=== PATIENT | male | born 1950 | race Caucasian/White ===

== ENCOUNTER 2019-02-05 11:48 | Inpatient (IN) | payer MEDICARE, MEDICAID, SELFPAY ==
[2019-02-05] VITALS (18 sets, daily range): BP systolic 130–161; BP diastolic 49–72; PULSE 76–97; RESP 12–31; TEMP 36.3–37.4; O2SAT 87–100; BMI 26.8; BMI 24.5
--- NOTE | 2019-02-05 13:17 | CT_ITS ---
STUDY: CT BRAIN WITHOUT CONTRAST REASON FOR EXAM: Male, 69 years old. The patient was found unresponsive. Hyperglycemia. Stage III chronic renal disease. RADIATION DOSAGE (If Supplied By Facility): CTDIvol = ( 44.99 ) mGy, DLP = ( 762.36 ) mGycm TECHNIQUE: Transaxial CT imaging of the brain was performed without administration of intravenous contrast material. Individualized dose optimization techniques were used for this CT. COMPARISON: Comparison is made with prior study dated January 12, 2017. FINDINGS: Normal soft tissue structures. Normal calvarium. There is mild cerebral atrophy with widening of the extra-axial spaces and ventricular dilatation. Normal white matter tracts of the cerebral hemispheres. Normal basal ganglia and thalami. Normal brainstem. There is mild cerebellar atrophy. There is no intracranial hemorrhage. There are no findings of an acute ischemic infarction. Normal visualized paranasal sinuses. CT/Brain/Head without Contrast IMPRESSION: Chronic involutional changes of the brain. Electronically Signed: Maikel Cevallos, at 14:56 EDT , Service support ,
--- NOTE | 2019-02-05 13:17 | RAD_ITS ---
STUDY: X-RAY CHEST REASON FOR EXAM: Male, 69 years old. Decreased mental status. TECHNIQUE: Single AP portable view of the chest. COMPARISON: Comparison is made with prior study dated January 12, 2017. FINDINGS: EKG electrodes are seen. Findings suggestive of vascular congestion with a small bilateral effusions and bibasilar atelectasis. There is moderate cardiac enlargement. Normal mediastinum and fco. Normal visualized pulmonary arteries. Normal visualized aortic arch and descending thoracic aorta. There are diffuse degenerative changes of the visualized thoracic spine. Normal visualized ribs, clavicles, and shoulders. There is no demonstrated abnormality of the visualized soft tissue structures of the upper abdomen. RAD/Chest 1 View (Portable) IMPRESSION: Findings suggestive of a mild degree of CHF with blunting of both costophrenic angles and bibasilar atelectasis. Electronically Signed: Maikel Cevallos, at 14:51 EDT , Service support ,
--- NOTE | 2019-02-05 13:18 | EKG12_ITS ---
Test Reason : UNRESPONSIVE Blood Pressure : / mmHG Vent. Rate : 089 BPM Atrial Rate : 089 BPM P-R Int : 232 ms QRS Dur : 084 ms QT Int : 394 ms P-R-T Axes : 055 -12 079 degrees QTc Int : 479 ms Sinus rhythm with 1st degree A-V block with Premature supraventricular complexes Minimal voltage criteria for LVH, may be normal variant Septal infarct (cited on or before 27-JAN-2016) Abnormal ECG Confirmed by JAY LO ([id number]), primer expeditor and drier TERRY TAVAREZ ([id number]) on 02/09/2019 12:27:31 PM Referred By: ALONDRA Confirmed By:JAY LO
--- NOTE | 2019-02-05 13:21 | ED.DCSUM_ITS ---
- ER Visit Summary Date of Service: 02/05/19 Chief Complaint: Decreased mental status History of Present Illness: The patient is a 69 M informant. Reportedly history of diabetes. Brought in by squad by decreased mental status. Patient will not answer my SUV has any headache, chest pain or abdominal pain. States he has been nausea and vomiting. Denies any falls or trauma. Denies any fever. Currently there is no one with the patient. Some the history is been obtained by the squad. Physical Examination: Older male. Vital signs are stable. Currently is afebrile. Initial blood pressure is 139/69. Pulse ox 93% on room air no signs of hypoxia. HEENT exam atraumatic. His membranes are very dry. C-spine is nontender. No lymphadenopathy. Lungs are clear. Heart regular rhythm. Chest were nontender. Abdomen soft and nontender. Normal bowel sounds no peritoneal signs. Nondistended. Soft. Extremities moves all 4. No deformities. No signs of trauma. Back nontender. Neurologically his eyes are open he follows limited commands. He answers very few questions. He is able to talk he is speaking in a low whisper but he refuses to speak much. He does seem to have a decreased mental status. Test Results: Chest x-ray one view portable read by myself shows no acute abnormality. EKG sinus rhythm rate of 89 no acute signs of UT or ischemia. CBC White count elevated 13 no bands. Electrolytes sodium 129. CO2 19. Anion gap is 17. Glucose 1566. BUN and creatinine is 62 and 3.1 consistent with acute kidney injury and acute dehydration. INR 1. UA is pending he has been straight cath. Troponin normal. Lactic acid 2.0 and ketones small. Emergency Department Course and Treatment: Older diabetic male reportedly nausea vomiting appears dehydrated and may or may not be in DKA. Again extensive work- up. Also IV fluids and IV Zofran. Most likely will need to be admitted. Patient treated with 3 L normal saline. Which are going in at this time. Will be started on insulin drip which is already been ordered. I have the hospitalist on page for an ICU admission. Treatment Plan: Treating the patient for hyperosmotic nonketotic coma and dehydration Disposition: Admission Impression: Acute decreased level of consciousness Acute hyperosmotic nonketotic coma Dehydration with acute kidney injury Nausea and vomiting History of diabetes This note was generated with Dragon dictation software. It may contain incorrect words, spelling, and punctuation that were not noted in review of the chart prior to signing ED Disposition - Plan for ED Patient: Referrals: Anthony Petersen MD [Primary Care Provider] -
[2019-02-05] MEDS: 0.9% Normal Saline 1,000 ML 1000 ML IV ×2 (13:45→14:47)
[2019-02-05 13:48] LABS: Absolute Lymphocyte Count 0.19 X10^3/uL (0.83-4.51); Absolute Neutrophil Count 12.3 X10^3/uL (2.0-7.7); Basophil# 0.03 X10^3/uL; Basophil% 0.2 % (0-1); Hematocrit 44.3 % (40-54); Hemoglobin 12.2 g/dL (13.0-16.5); Lymphocyte # 0.19 X10^3/ul (4.0); Lymphocyte % 1.4 % (19-41); Mean Corp Hgb Conc 27.5 g/dL (32-36); Mean Corpuscular Hgb 28.9 pg (27.0-32.0); Mean Platelet Vol. 11.7 fl (6.2-12.0); NRBC Flagged by Analyzer 0 % (0-5); Neutrophil # 12.34 X10^3/uL (2.7-7.7); Neutrophil % 89.4 % (47-70); POSITIVE DIFFERENTIAL YES; Platelet Count 205 K/mm3 (150-450); RBC Distribution Width CV 14.9 % (11.6-14.6); RBC Distribution Width SD 57.7 fl (35.1-43.9); Red Blood Count 4.22 M/mm3 (4.6-6.2); White Blood Count 13.8 K/mm3 (4.4-11.0)
--- NOTE | 2019-02-05 13:52 | ED.RN ---
CRITICAL RECEIVED FROM LAB. GLUCOSE 1,566. DR. CANTU NOTIFIED.
[2019-02-05 13:53] LABS: Anion Gap 17 (5-15); BUN 62 mg/dL (7-18); BUN/Creat Ratio 19.6 RATIO (10-20); Calcium,Total 9.3 mg/dL (8.5-10.1); Chloride 93 mmol/L (98-107); Creatinine, Serum 3.17 mg/dL (0.70-1.30); EST Glomerular Filtration Rate 21 mL/min (>60); Est Glom Filt Rate - Afr Amer 25 mL/min (>60); Estimated Creatinine Clearance 22.07 ml/min; Glucose 1566 mg/dL (74-106); Potassium 4.9 mmol/L (3.5-5.1); Sodium Level 129 mmol/L (136-145)
[2019-02-05 14:03] LABS: International Normalized Ratio 1.9; Prothrombin Time (Protime)PT. 21.6 SECONDS (11.7-14.9)
[2019-02-05 14:07] LABS: Differential Indicated SCAN CRITERIA MET
[2019-02-05 14:21] LABS: Mucous, Urine 0 SEEN /hpf (<or=2+); Red Blood Cells-Urine 0 SEEN /hpf (0-5); Squamous Epithelial Cells - UA 0 SEEN /hpf (0-5); White Blood Cells 0 SEEN /hpf (0-5)
[2019-02-05 14:27] LABS: Color, Urine Yellow (Yellow); Glucose, Dipstick 1000 mg/dl (Normal); Ketone-Dipstick 15 mg/dl (Negative); Leukocyte Esterase-Dipstick Negative /ul (Negative); Nitrite-Dipstick Negative (Negative); Occult Blood-Urine 10 /ul (Negative); Protein-Dipstick Negative (Negative); Urine Bilirubin Dipstick Negative (Negative); Urine Clarity Clear (Clear); Urine Urobilinogen Normal (Normal)
[2019-02-05] MEDS: 0.9% Normal Saline 1,000 ML 999 ML IV ×2 (14:42→16:16)
[2019-02-05 14:50] LABS: Amorphous Sediment 1+; Bacteria RARE /hpf (None Seen)
[2019-02-05 14:56] LABS: Base Excess -12 mmol/L (-2 to +2); Bicarbonate 15.2 mmol/L (22-26); Blood Gas Specimen Type ART; O2 Delivery Device Nasal Can; PO2 82 mmHG (75-100); SITE R Radial; SO2 94 % (95-99); Time Given 1450; Total Carbon Dioxide 16 mmol/L; pCO2 35.4 mmHg (35-45); pH 7.24 (7.35-7.45)
[2019-02-05] MEDS: Ondansetron 4 MG/2 ML Vial IV (14:57)
[2019-02-05 16:50] LABS: Glucose 1176 mg/dL (74-106)
[2019-02-05] MEDS: 0.9% Normal Saline 1,000 ML 500 ML IV (17:17)
[2019-02-05 17:43] LABS: Glucose 1037 mg/dL (74-106)
[2019-02-05 17:49] LABS: Reflex Lactate? Y
--- NOTE | 2019-02-05 18:27 | HP.PCM_ITS ---
Problem List (1) Altered mental state Status: Acute Qualifiers: Altered mental status type: delirium Qualified Code(s): R41.0 - Disorientation, unspecified History of Present Illness Date of Admission: 02/05/19 Chief Complaint: Decreased mental status with delirium The patient is a 69 year old M was brought in by squad for evaluation in the emergency room [facility] due to a decreased level of consciousness and delirium. Patient was confused and unable to answer any questions to this examiner, review of systems was not able be obtained by this examiner. Work-up in the emergency room included a CBC which revealed an elevated white blood cell count 13.8, hemoglobin was 12.2, INR was 1.9, chemistry panel was remarkable for a sodium of 129, BUN of 62, creatinine 3.17, glucose was 1566, troponin was unremarkable. Urinalysis was unremarkable, there was a small amount of acetone present on the blood work, arterial blood gas showed a pH of 7.24, PCO2 of 35, PO2 of 82 on 2 L nasal cannula. Head CT was remarkable for chronic involutional changes of the brain only, chest x-ray suggested a mild degree of CHF-on examination however, patient did not have evidence of CHF. Patient was admitted for acute nonketotic hyperosmolar hyperglycemia, he was placed on insulin drip, given IV fluids, and critical care was consulted for management. Further note, patient's warfarin bottle indicated that the patient was taking 12-1/2 mg several times a week and then 5 mg the other days of the week, I clarify this with his PCP who states the patient alternates between 2-1/2 mg wa rfarin on Saturday and and 5 mg warfarin on Saturday and Saturday. For now, I will place the patient on warfarin 2-1/2 mg daily. Past Medical History Past Medical History (Chronic Problems): Chronic Problems HTN (hypertension) (Chronic) Obesity (BMI 30-39.9) (Chronic) Hyperlipidemia (Chronic) Chronic back pain (Chronic) Chronic 2nd toe ulcer (Chronic) Chronic renal disease, stage III (Chronic) Coronary artery disease (Chronic) Status post stents Diabetic peripheral neuropathy (Chronic) Type II diabetes mellitus (Chronic) not adequately controlled, HGBA1C is 8 Paroxysmal atrial fibrillation (Chronic) Allergies mushroom Allergy (Verified 01/12/17 23:26) Unknown Home Medications: Ambulatory Orders Medication Instructions Recorded Atorvastatin Calcium [Lipitor] 40 mg PO QHS 03/25/14 Clopidogrel Bisulfate [Plavix] 75 mg PO DAILY 03/25/14 Isosorbide Mononitrate [Isosorbide 30 mg PO DAILY 07/08/14 Mononitrate ER] Linagliptin [Tradjenta] 5 mg PO DAILY 12/06/15 Acetaminophen [Tylenol Tablet] 650 mg PO Q6H PRN PRN #0 tablet 12/14/15 Albuterol Inhaler [Ventolin Hfa] 2 puff INHALATION Q4H PRN PRN #1 12/14/15 Gabapentin [Neurontin] 300 mg PO BIDCM capsule 12/14/15 Nitroglycerin (INPATIENT USE) 0.4 mg SUBLINGUAL Q5M PRN #0 tablet 12/14/15 [Nitrostat] Furosemide [Lasix] 20 mg PO BIDLX 01/13/17 Metoprolol Tartrate [Lopressor 12.5 mg PO BID 01/13/17 (beta cordelia)] Warfarin [Coumadin] 5 mg PO MOWEFRSA 01/13/17 Warfarin [Coumadin] 12.5 mg PO SUTUTH 01/13/17 Budesonide/Formoterol Fumarate 2 puff INHALATION BID 02/05/19 [Symbicort 80-4.5 Mcg Inhaler] Dronedarone Hydrochloride [Multaq] 400 mg PO BID 02/05/19 Famotidine 40 mg PO DAILY 02/05/19 Fluticasone 0.05% [Flonase Nasal 1 spray NARES BID 02/05/19 [place]] Insulin Aspart [Novolog Flexpen] 30 units SUBCUT TIDCM 02/05/19 Insulin Detemir [Levemir FlexPen] 30 units SUBCUT BID 02/05/19 Surgical History: noncontributory Psychiatric History: No pertinent psych hx Lives: Alone Smoking Status: Unknown if ever smoked Tobacco Use: - - Unknown tobacco history-patient not able to provide - *Family History Maternal History Items: Heart Disease Paternal History Items: Diabetes, Heart Disease Review of Systems Comment: Review of systems was unobtainable from the patient due to confusion and metabolic encephalopathy, family members were not present for this examiner to obtain information VTE Information - Inpt Only VTE Present on Admission: No VTE Mechan Device Prophylaxis: SCD's VTE Pharm Prophylaxis ordered?: No Reason prophylaxis not ordered:: Treatment Not Indicated - Physical Exam General: Cooperative, No apparent distress, Well developed, Confused, Lethargic HEENT: Atraumatic, PERRLA, EOMI, Normocephalic Oral: Dry Mucosa Neck: Supple, No JVD, Negative Carotid Bruits, Trachea Midline, Thyroid Normal Size and Texture Lungs: Clear to auscultation, Normal air movement, No rhonchi, No wheeze, No rales Cardiovascular: Regular rate, Regular Rhythm, Normal S1, Normal S2, No murmurs, PMI Normal, No rub noted, No Gallop Abdomen: Bowel Sounds Present, Soft, Non Tender, Non-Distended, No hernias noted Extremities: No edema, Capillary Refill Less than 3 Seconds Skin: No rashes, No breakdown Neurological: Cranial nerves II-XII grossly intact, Neuro grossly intact, Sensory exam intact to light touch and pain Psych/Mental Status: - - Patient was lethargic and confused Vital Signs Temp Pulse Resp BP Pulse Ox 97.6 F L 88 25 H 149/62 H 98 02/05/19 18:00 02/05/19 18:00 02/05/19 18:00 02/05/19 18:00 02/05/19 18:00 Oxygen Flow Rate (L/min) 2 Oxygen Delivery Method Nasal Cannula Weight: 81.9 kg Body Mass Index (BMI) 24.5 Finger Stick Blood Glucose 1,566 Intake and Output for Last 24 Hours 02/03/19 02/04/19 02/05/19 23:59 23:59 23:59 Intake Total 3537.24 / 3537.24 Output Total 1400 / 1400 Balance 2137.24 / 2137.24 Laboratory Tests Past 24 Hrs 02/05/19 02/05/19 02/05/19 11:54 11:54 11:54 WBC 13.8 H RBC 4.22 L Hgb 12.2 L Hct 44.3 MCV 105.0 H MCH 28.9 MCHC 27.5 L RDW Std Deviation 57.7 H RDW Coeff of [place] 14.9 H Plt Count 205 MPV 11.7 Immature Gran % (Auto) 1.000 H Neut % (Auto) 89.4 H Lymph % (Auto) 1.4 L Edwards % (Auto) 8.0 Eos % (Auto) 0.0 Baso % (Auto) 0.2 Absolute Neuts (auto) 12.3 H Absolute Lymphs (auto) 0.19 L Nucleated RBC % 0 Differential Comment COMMENT PT 21.6 H INR 1.9 Specimen Type Sample Site pH Bicarbonate Actual POC Total CO2 Base Excess O2 Saturation ABG pCO2 ABG pO2 Ken Test O2 Delivery Device Liter Flow Blood Gas Notified Whom Blood Gas Notified Time Sodium 129 L Potassium 4.9 Chloride 93 L Carbon Dioxide 19.0 L Anion Gap 17 H BUN 62 H Creatinine 3.17 H Estim Creat Clear Calc 22.07 Est GFR (MDRD) Af Amer 25 L Est GFR (MDRD) Non-Af 21 L BUN/Creatinine Ratio 19.6 Glucose 1566 H* Lactic Acid Calcium 9.3 Troponin I 0.017 Urine Color Urine Clarity Urine pH Ur Specific Mcdonough Urine Protein Urine Glucose (UA) Urine Ketones Urine Occult Blood Urine Nitrite Urine Bilirubin Urine Urobilinogen Ur Leukocyte Esterase Urine RBC Urine WBC Ur Squamous Epith Cells Amorphous Sediment Urine Bacteria Urine Mucus Acetone Level 02/05/19 02/05/19 02/05/19 11:54 13:35 14:16 WBC RBC Hgb Hct MCV MCH MCHC RDW Std Deviation RDW Coeff of [place] Plt Count MPV Immature Gran % (Auto) Neut % (Auto) Lymph % (Auto) Edwards % (Auto) Eos % (Auto) Baso % (Auto) Absolute Neuts (auto) Absolute Lymphs (auto) Nucleated RBC % Differential Comment PT INR Specimen Type Sample Site pH Bicarbonate Actual POC Total CO2 Base Excess O2 Saturation ABG pCO2 ABG pO2 Ken Test O2 Delivery Device Liter Flow Blood Gas Notified Whom Blood Gas Notified Time Sodium Potassium Chloride Carbon Dioxide Anion Gap BUN Creatinine Estim Creat Clear Calc Est GFR (MDRD) Af Amer Est GFR (MDRD) Non-Af BUN/Creatinine Ratio Glucose Lactic Acid 2.0 Calcium Troponin I Urine Color Yellow Urine Clarity Clear Urine pH 5.0 Ur Specific Mcdonough 1.010 Urine Protein Negative Urine Glucose (UA) 1000 H Urine Ketones 15 H Urine Occult Blood 10 H Urine Nitrite Negative Urine Bilirubin Negative Urine Urobilinogen Normal Ur Leukocyte Esterase Negative Urine RBC 0 SEEN Urine WBC 0 SEEN Ur Squamous Epith Cells 0 SEEN Amorphous Sediment 1+ Urine Bacteria RARE Urine Mucus 0 SEEN Acetone Level SMALL H 02/05/19 02/05/19 02/05/19 14:51 16:05 17:08 WBC RBC Hgb Hct MCV MCH MCHC RDW Std Deviation RDW Coeff of [place] Plt Count MPV Immature Gran % (Auto) Neut % (Auto) Lymph % (Auto) Edwards % (Auto) Eos % (Auto) Baso % (Auto) Absolute Neuts (auto) Absolute Lymphs (auto) Nucleated RBC % Differential Comment PT INR Specimen Type ART Sample Site R Radial pH 7.24 L Bicarbonate Actual 15.2 L POC Total CO2 16 Base Excess -12 L O2 Saturation 94 L ABG pCO2 35.4 ABG pO2 82 Ken Test NA O2 Delivery Device Nasal Can Liter Flow 2.0 Blood Gas Notified Whom ED Blood Gas Notified Time 1450 Sodium Potassium Chloride Carbon Dioxide Anion Gap BUN Creatinine Estim Creat Clear Calc Est GFR (MDRD) Af Amer Est GFR (MDRD) Non-Af BUN/Creatinine Ratio Glucose 1176 H* 1037 H* Lactic Acid Calcium Troponin I Urine Color Urine Clarity Urine pH Ur Specific Mcdonough Urine Protein Urine Glucose (UA) Urine Ketones Urine Occult Blood Urine Nitrite Urine Bilirubin Urine Urobilinogen Ur Leukocyte Esterase Urine RBC Urine WBC Ur Squamous Epith Cells Amorphous Sediment Urine Bacteria Urine Mucus Acetone Level 02/05/19 18:05 WBC RBC Hgb Hct MCV MCH MCHC RDW Std Deviation RDW Coeff of [place] Plt Count MPV Immature Gran % (Auto) Neut % (Auto) Lymph % (Auto) Edwards % (Auto) Eos % (Auto) Baso % (Auto) Absolute Neuts (auto) Absolute Lymphs (auto) Nucleated RBC % Differential Comment PT INR Specimen Type Sample Site pH Bicarbonate Actual POC Total CO2 Base Excess O2 Saturation ABG pCO2 ABG pO2 Ken Test O2 Delivery Device Liter Flow Blood Gas Notified Whom Blood Gas Notified Time Sodium Pending Potassium Pending Chloride Pending Carbon Dioxide Pending Anion Gap Pending BUN Pending Creatinine Pending Estim Creat Clear Calc Est GFR (MDRD) Af Amer Pending Est GFR (MDRD) Non-Af Pending BUN/Creatinine Ratio Pending Glucose Pending Lactic Acid Calcium Pending Troponin I Urine Color Urine Clarity Urine pH Ur Specific Mcdonough Urine Protein Urine Glucose (UA) Urine Ketones Urine Occult Blood Urine Nitrite Urine Bilirubin Urine Urobilinogen Ur Leukocyte Esterase Urine RBC Urine WBC Ur Squamous Epith Cells Amorphous Sediment Urine Bacteria Urine Mucus Acetone Level Assessment/Plan All Active Problems Hypoglycemia (Resolved) Hypothermia (Resolved) Altered mental state (Acute) Acute osteomyelitis of metacarpal bone (Resolved) Osteomyelitis of toe of right foot (Resolved) Right 2nd toe suspected osteomyelitis (Resolved) Right 2nd toe gangrene (Resolved) #1 hyperosmolar nonketotic hyperglycemia, uncontrolled type 2 diabetes-patient will be admitted to ICU, he will be seen in consultation by critical care, patient will continue on his insulin drip, vigorous fluid administration will be given, labs will be monitored #2 acute renal failure-fluids will be administered, labs will be monitored #3 metabolic encephalopathy-secondary to #1 #4 coronary artery disease #5 diabetic peripheral neuropathy by history #6 paroxysmal atrial fibrillation-currently in sinus rhythm #7 coagulopathy secondary to chronic Coumadin usage #8 hyperlipidemia #9 leukocytosis-probably secondary to severe hydration-patient does not have any evidence of active infection at this time, labs will be rechecked #10 chronic obstructive pulmonary disease-patient will be placed on DuoNeb aerosols as needed Code Visit Inpatient E&M: 27521 Init Hosp L3
[2019-02-05 18:52] LABS: Anion Gap 9 (5-15); BUN 53 mg/dL (7-18); BUN/Creat Ratio 21.5 RATIO (10-20); Calcium,Total 8.3 mg/dL (8.5-10.1); Chloride 115 mmol/L (98-107); Creatinine, Serum 2.46 mg/dL (0.70-1.30); EST Glomerular Filtration Rate 28 mL/min (>60); Est Glom Filt Rate - Afr Amer 34 mL/min (>60); Estimated Creatinine Clearance 30.23 ml/min; Glucose 968 mg/dL (74-106); Potassium 3.5 mmol/L (3.5-5.1); Sodium Level 146 mmol/L (136-145)
[2019-02-05 19:23] LABS: Glucose 929 mg/dL (74-106)
--- NOTE | 2019-02-05 19:30 | NURSING ---
Insulin gtt running at 1unit/hr or 1ml/hr on at shift change.
[2019-02-05] MEDS: 0.9% NaCl Peripheral Flush Adult/Peds IV ×3 (19:56→22:00)
--- NOTE | 2019-02-05 20:19 | NURSING ---
Pt having numerous low pulse ox readings while resting with eyes closed. Very somnolent, responds to verbal but readily falls back to sleep. Garbled, difficult to understand, verbal responses, but with persistence in questioning, will respond appropriately.
[2019-02-05 20:31] LABS: Glucose 881 mg/dL (74-106)
[2019-02-05] MEDS: Potassium Chloride 40 MEQ in 0.45% Normal Saline 1,000 ML 150 MEQ IV (20:37)
[2019-02-05 21:51] LABS: Glucose 805 mg/dL (74-106)
[2019-02-05 22:36] LABS: Anion Gap 6 (5-15); BUN 48 mg/dL (7-18); Calcium,Total 8.4 mg/dL (8.5-10.1); Chloride 120 mmol/L (98-107); Creatinine, Serum 2.18 mg/dL (0.70-1.30); EST Glomerular Filtration Rate 32 mL/min (>60); Est Glom Filt Rate - Afr Amer 39 mL/min (>60); Estimated Creatinine Clearance 34.11 ml/min; Glucose 730 mg/dL (74-106); Potassium 3.9 mmol/L (3.5-5.1); Sodium Level 149 mmol/L (136-145)
[2019-02-05 23:11] LABS: Bedside Glucose > 500 mg/dL (70-110)
[2019-02-05 23:56] LABS: Glucose 754 mg/dL (74-106)
[2019-02-06] VITALS (40 sets, daily range): BP systolic 123–178; BP diastolic 41–91; PULSE 60–104; RESP 14–25; TEMP 35.9–36.8; O2SAT 93–100
--- NOTE | 2019-02-06 00:19 | PCM.PN.BLA ---
Progress Note Blood cultures returned gram-positive cocci in clusters. This could be a contaminant. However patient has leukocytosis which could also be because of his HHS. In any case will go ahead and start patient on vancomycin while we wait for final culture and for return of other bottle of blood culture.
[2019-02-06] MEDS: 0.9% NaCl Peripheral Flush Adult/Peds IV ×3 (01:15→06:51)
[2019-02-06 01:43] LABS: Glucose 702 mg/dL (74-106)
--- NOTE | 2019-02-06 01:43 | PCM.RX.CS ---
Consult Pharmacy has been consulted to manage selected antiobiotic: Vancomycin Type of Consult: New start Suspected Infection: Other Prior Doses of Antibiotics Received/Current Regimen: Medications Vancomycin HCl 1,250 mg/ (Sodium Chloride) 275 mls @ 167 mls/hr IV Q24H HARESH Vancomycin HCl 1,250 mg/ (Sodium Chloride) 275 mls @ 167 mls/hr IV X1 ONE Stop: 02/06/19 02:38 Last Admin: 02/06/19 01:12 Dose: 167 mls/hr Labs: Sodium 149 mmol/L (136-145) H 02/05/19 22:05 Potassium 3.9 mmol/L (3.5-5.1) 02/05/19 22:05 Chloride 120 mmol/L (98-107) H 02/05/19 22:05 Carbon Dioxide 23.0 mmol/L (21.0-32.0) 02/05/19 22:05 Anion Gap 6 (5-15) 02/05/19 22:05 BUN 48 mg/dL (7-18) H 02/05/19 22:05 Creatinine 2.18 mg/dL (0.70-1.30) H 02/05/19 22:05 Est GFR (MDRD) Af Amer 39 mL/min (>60) L 02/05/19 22:05 Est GFR (MDRD) Non-Af 32 mL/min (>60) L 02/05/19 22:05 BUN/Creatinine Ratio 22.0 RATIO (10-20) H 02/05/19 22:05 Glucose 702 mg/dL (74-106) H* 02/06/19 01:10 Microbiology: Microbiology 02/05/19 13:30 Blood Culture (Wb) - Left Forearm Blood Culture - Preliminary Weight used for dosin.9 kg Estimated Creatinine Clearance: 34.1 Goal Trough: 15-20 mcg/mL Pharmacy Plan for Drug Dosing: Pharmacy Service will continue to monitor and adjust dosing as required. Follow-Up Labs: Trough Vancomycin Labs to be done on [date and time ordered]: 02/08/19 @0030
[2019-02-06 02:44] LABS: Anion Gap 4 (5-15); BUN 46 mg/dL (7-18); BUN/Creat Ratio 22.3 RATIO (10-20); Calcium,Total 8.6 mg/dL (8.5-10.1); Chloride 123 mmol/L (98-107); Creatinine, Serum 2.06 mg/dL (0.70-1.30); EST Glomerular Filtration Rate 34 mL/min (>60); Est Glom Filt Rate - Afr Amer 41 mL/min (>60); Glucose 622 mg/dL (74-106); Potassium 4.2 mmol/L (3.5-5.1); Sodium Level 152 mmol/L (136-145)
[2019-02-06 03:10] LABS: Bedside Glucose > 500 mg/dL (70-110)
[2019-02-06 04:16] LABS: Bedside Glucose > 500 mg/dL (70-110)
[2019-02-06] MEDS: Potassium Chloride 40 MEQ in 0.45% Normal Saline 1,000 ML 150 MEQ IV ×2 (05:03→05:05)
[2019-02-06 05:11] LABS: Bedside Glucose > 500 mg/dL (70-110)
[2019-02-06 05:32] LABS: Absolute Neutrophil Count 13.3 X10^3/uL (2.0-7.7); Basophil# 0.03 X10^3/uL; Basophil% 0.2 % (0-1); Eosinophil# 0.21 X10^3/uL; Eosinophils% 1.4 % (0-5); Hematocrit 38.4 % (40-54); Hemoglobin 11.9 g/dL (13.0-16.5); Lymphocyte % 2.1 % (19-41); Mean Corpuscular Hgb 28.9 pg (27.0-32.0); Mean Corpuscular Volume 93.2 fL (80-94); Mean Platelet Vol. 10.5 fl (6.2-12.0); Monocyte# 0.76 X10^3/uL; Monocyte% 5.2 % (0-10); NRBC Flagged by Analyzer 0 % (0-5); Neutrophil # 13.25 X10^3/uL (2.7-7.7); Neutrophil % 90.6 % (47-70); POSITIVE DIFFERENTIAL YES; Platelet Count 168 K/mm3 (150-450); RBC Distribution Width CV 14.7 % (11.6-14.6); RBC Distribution Width SD 50.3 fl (35.1-43.9); Red Blood Count 4.12 M/mm3 (4.6-6.2); White Blood Count 14.6 K/mm3 (4.4-11.0)
[2019-02-06 05:34] LABS: Differential Indicated SCAN CRITERIA MET
[2019-02-06 05:55] LABS: Differential Comment SCANNED
[2019-02-06 06:00] LABS: Bedside Glucose > 500 mg/dL (70-110)
[2019-02-06 06:10] LABS: Anion Gap 9 (5-15); BUN 46 mg/dL (7-18); BUN/Creat Ratio 23.7 RATIO (10-20); Calcium,Total 8.5 mg/dL (8.5-10.1); Chloride 124 mmol/L (98-107); Creatinine, Serum 1.94 mg/dL (0.70-1.30); EST Glomerular Filtration Rate 36 mL/min (>60); Est Glom Filt Rate - Afr Amer 44 mL/min (>60); Estimated Creatinine Clearance 38.33 ml/min; Glucose 581 mg/dL (74-106); Potassium 4.6 mmol/L (3.5-5.1); Sodium Level 156 mmol/L (136-145)
[2019-02-06] MEDS: Dext 5%-0.45% NS 1,000 ML 110 ML IV (06:50)
--- NOTE | 2019-02-06 07:35 | PCM.CON.CC ---
Problem List (1) Hyperosmolar coma due to secondary diabetes Status: Acute (2) Altered mental state Status: Acute Qualifiers: Altered mental status type: delirium Qualified Code(s): R41.0 - Disorientation, unspecified (3) HTN (hypertension) Status: Chronic Qualifiers: Hypertension type: essential hypertension Qualified Code(s): I10 - Essential (primary) hypertension (4) Obesity (BMI 30-39.9) Status: Chronic (5) Hyperlipidemia Status: Chronic (6) Chronic back pain Status: Chronic (7) Chronic renal disease, stage III Status: Chronic (8) Coronary artery disease Status: Chronic Comment: Status post stents (9) Diabetic peripheral neuropathy Status: Chronic (10) Type II diabetes mellitus Status: Chronic Qualifiers: Diabetes mellitus remote computer terminal operator insulin use: with mcc use Diabetes mellitus complication status: with hyperglycemia Qualified Code(s): E11.65 - Type 2 diabetes mellitus with hyperglycemia; Z79.4 - FPC (current) use of insulin Comment: not adequately controlled, HGBA1C is 8 (11) Paroxysmal atrial fibrillation Status: Chronic Reason for Consult Date of Consultation: 02/06/19 Reason for Consultation: Hyperosmolar non-ketosis History of Present Illness: The patient is a 69 year old M, with past medical history listed below, who presented to [facility] on 02/05/2019 secondary to decreased mental status. Patient is not able to answer questions at this time other than to shake his head no for pain, so most of the history is from the electronic medical record. Patient reportedly was 93% on room air with a blood pressure of 139/69 on presentation to the ER. Patient reportedly did follow limited commands on presentation. Chest x-ray in the ER was unremarkable, but bicarbonate was 19, anion gap of 17 and glucose of 1566. Creatinine was elevated at 3.1 and lactate was within normal limits. Patient was given IV fluids, IV Zofran, 3 L normal saline and was admitted to the intensive care unit for further evaluation. Overnight in the intensive care unit, patient has come back positive for staph aureus in 2 out of 2 blood cultures. Patient is also been placed on BiPAP therapy secondary to acidosis and desaturations. Patient is not currently answering any questions. There is no family at the bedside. Patient will open his eyes to a sternal rub and shake his head yes or no. Patient states he has no chest pain, abdominal pain, nausea or diarrhea. Patient does have superficial skin wounds, but is unable to provide any history on their occurrence. Nursing did report there were feces noted on his feet. Unable to obtain review of systems secondary to mental status. Past Medical History Past Medical History (Chronic Problems): Chronic Problems HTN (hypertension) (Chronic) Obesity (BMI 30-39.9) (Chronic) Hyperlipidemia (Chronic) Chronic back pain (Chronic) Chronic 2nd toe ulcer (Chronic) Chronic renal disease, stage III (Chronic) Coronary artery disease (Chronic) Status post stents Diabetic peripheral neuropathy (Chronic) Type II diabetes mellitus (Chronic) not adequately controlled, HGBA1C is 8 Paroxysmal atrial fibrillation (Chronic) Allergies mushroom Allergy (Verified 01/12/17 23:26) Unknown Home Medications: Ambulatory Orders Medication Instructions Recorded Atorvastatin Calcium [Lipitor] 40 mg PO QHS 03/25/14 Clopidogrel Bisulfate [Plavix] 75 mg PO DAILY 03/25/14 Isosorbide Mononitrate [Isosorbide 30 mg PO DAILY 07/08/14 Mononitrate ER] Linagliptin [Tradjenta] 5 mg PO DAILY 12/06/15 Acetaminophen [Tylenol Tablet] 650 mg PO Q6H PRN PRN #0 tablet 12/14/15 Albuterol Inhaler [Ventolin Hfa] 2 puff INHALATION Q4H PRN PRN #1 12/14/15 Gabapentin [Neurontin] 300 mg PO BIDCM capsule 12/14/15 Nitroglycerin (INPATIENT USE) 0.4 mg SUBLINGUAL Q5M PRN #0 tablet 12/14/15 [Nitrostat] Furosemide [Lasix] 20 mg PO BIDLX 01/13/17 Metoprolol Tartrate [Lopressor 12.5 mg PO BID 01/13/17 (beta cordelia)] Warfarin [Coumadin] 5 mg PO MOWEFRSA 01/13/17 Warfarin [Coumadin] 12.5 mg PO SUTUTH 01/13/17 Budesonide/Formoterol Fumarate 2 puff INHALATION BID 02/05/19 [Symbicort 80-4.5 Mcg Inhaler] Dronedarone Hydrochloride [Multaq] 400 mg PO BID 02/05/19 Famotidine 40 mg PO DAILY 02/05/19 Fluticasone 0.05% [Flonase Nasal 1 spray NARES BID 02/05/19 [place]] Insulin Aspart [Novolog Flexpen] 30 units SUBCUT TIDCM 02/05/19 Insulin Detemir [Levemir FlexPen] 30 units SUBCUT BID 02/05/19 Surgical History: noncontributory Psychiatric History: No pertinent psych hx Lives: Alone Smoking Status: Unknown if ever smoked Tobacco Use: - - Unknown tobacco history-patient not able to provide - *Family History Maternal History Items: Heart Disease Paternal History Items: Diabetes, Heart Disease Review of Systems Unable to obtain accurate/complete ROS d/t: See HPI Patient Problems: Active and Suspected Problems Hyperosmolar coma due to secondary diabetes (Acute) Objective: Chest x-ray was personally reviewed and does show blunting of bilateral costophrenic angles. No obvious infiltrate is appreciated. CT scan of the head showed chronic involutional changes. Last echocardiogram 01/07/2015 showing moderate LVH with EF of 65% in stage I diastolic dysfunction. Right ventricular systolic pressure of 26 mmHg. Patient also has a pulmonary rehab documentation around this time. However. No pulmonary function tests are available for review. Patient did have a CT scan in 2014 showing fibrotic changes at the bases of his lungs - Physical Exam General: Confused, Disoriented, Lethargic, Non-Cooperative, - - Appears older than stated age. Not vocalizing. HEENT: Atraumatic, PERRLA, EOMI, Normocephalic, - - No scleral icterus or injection noted. Oral: No Gingival or Mucosal Lesions/ Ulcerations, Dry Mucosa Neck: Supple, No JVD, No Nodes, Trachea Midline Lungs: No rhonchi, No wheeze, No rales, Diminished, - - Fair effort. Slight dullness to percussion laterally at the bases. Cardiovascular: Regular rate, Regular Rhythm, Normal S1, Normal S2, No murmurs, No rub noted, No Gallop Abdomen: Soft, Non Tender, Hypoactive Bowel Sounds, Distended - Slightly Extremities: No clubbing, No cyanosis, No edema, - - Right second toe amputation Skin: - - Petechiae noted throughout lower extremities. Patient does have some superficial ulceration with granulation tissue on the shoulders and upper chest and surrounding erythema. No fluctuance is noted. Musculoskeletal: No Tenderness to Palpation of Joints or Extremities Lymphatic: No Cervical, Supraclavicular, or Inguinal Adenopathy Neurological: - - Positive gag, cough and corneal reflexes. Spontaneous respirations. Very little spontaneous movement noted. Psych/Mental Status: Flat Affect Vital Signs Temp Pulse Resp BP Pulse Ox 35.9 C L 72 22 H 135/62 H 98 02/06/19 04:00 02/06/19 07:00 02/06/19 07:00 02/06/19 07:00 02/06/19 07:00 Oxygen Flow Rate (L/min) 2 Oxygen Delivery Method Bi-pap Weight: 82.4 kg Body Mass Index (BMI) 24.5 Finger Stick Blood Glucose 512 Intake and Output for Last 24 Hours 02/04/19 02/05/19 02/06/19 23:59 23:59 23:59 Intake Total 4903.37 / 5053.37 1201.94 / 1201.94 Output Total 2700 / 2700 800 / 800 Balance 2203.37 / 2353.37 401.94 / 401.94 Microbiology Past 72 Hours 02/05/19 13:30 Blood Culture - Preliminary Blood Culture (Wb) - Left Forearm 02/05/19 13:40 Bacteria Detection (PCR) - Preliminary Blood Culture (Wb) - Right Wrist Staphylococcus aureus Blood Culture - Preliminary Laboratory Tests Past 24 Hrs 02/05/19 02/05/19 02/05/19 11:54 11:54 11:54 WBC 13.8 H RBC 4.22 L Hgb 12.2 L Hct 44.3 MCV 105.0 H MCH 28.9 MCHC 27.5 L RDW Std Deviation 57.7 H RDW Coeff of [place] 14.9 H Plt Count 205 MPV 11.7 Immature Gran % (Auto) 1.000 H Neut % (Auto) 89.4 H Lymph % (Auto) 1.[address] % (Auto) 8.0 Eos % (Auto) 0.0 Baso % (Auto) 0.2 Absolute Neuts (auto) 12.3 H Absolute Lymphs (auto) 0.19 L Nucleated RBC % 0 Differential Comment COMMENT PT 21.6 H INR 1.9 Specimen Type Sample Site pH Bicarbonate Actual POC Total CO2 Base Excess O2 Saturation ABG pCO2 ABG pO2 Ken Test O2 Delivery Device Liter Flow Blood Gas Notified Whom Blood Gas Notified Time Sodium 129 L Potassium 4.9 Chloride 93 L Carbon Dioxide 19.0 L Anion Gap 17 H BUN 62 H Creatinine 3.17 H Estim Creat Clear Calc 22.07 Est GFR (MDRD) Af Amer 25 L Est GFR (MDRD) Non-Af 21 L BUN/Creatinine Ratio 19.6 Glucose 1566 H* Lactic Acid Calcium 9.3 Troponin I 0.017 Urine Color Urine Clarity Urine pH Ur Specific [place] Urine Protein Urine Glucose (UA) Urine Ketones Urine Occult Blood Urine Nitrite Urine Bilirubin Urine Urobilinogen Ur Leukocyte Esterase Urine RBC Urine WBC Ur Squamous Epith Cells Amorphous Sediment Urine Bacteria Urine Mucus Acetone Level 02/05/19 02/05/19 02/05/19 11:54 13:35 14:16 WBC RBC Hgb Hct MCV MCH MCHC RDW Std Deviation RDW Coeff of [place] Plt Count MPV Immature Gran % (Auto) Neut % (Auto) Lymph % (Auto) [place] % (Auto) Eos % (Auto) Baso % (Auto) Absolute Neuts (auto) Absolute Lymphs (auto) Nucleated RBC % Differential Comment PT INR Specimen Type Sample Site pH Bicarbonate Actual POC Total CO2 Base Excess O2 Saturation ABG pCO2 ABG pO2 Ken Test O2 Delivery Device Liter Flow Blood Gas Notified Whom Blood Gas Notified Time Sodium Potassium Chloride Carbon Dioxide Anion Gap BUN Creatinine Estim Creat Clear Calc Est GFR (MDRD) Af Amer Est GFR (MDRD) Non-Af BUN/Creatinine Ratio Glucose Lactic Acid 2.0 Calcium Troponin I Urine Color Yellow Urine Clarity Clear Urine pH 5.0 Ur Specific [place] 1.010 Urine Protein Negative Urine Glucose (UA) 1000 H Urine Ketones 15 H Urine Occult Blood 10 H Urine Nitrite Negative Urine Bilirubin Negative Urine Urobilinogen Normal Ur Leukocyte Esterase Negative Urine RBC 0 SEEN Urine WBC 0 SEEN Ur Squamous Epith Cells 0 SEEN Amorphous Sediment 1+ Urine Bacteria RARE Urine Mucus 0 SEEN Acetone Level SMALL H 02/05/19 02/05/19 02/05/19 14:51 16:05 17:08 WBC RBC Hgb Hct MCV MCH MCHC RDW Std Deviation RDW Coeff of [place] Plt Count MPV Immature Gran % (Auto) Neut % (Auto) Lymph % (Auto) [place] % (Auto) Eos % (Auto) Baso % (Auto) Absolute Neuts (auto) Absolute Lymphs (auto) Nucleated RBC % Differential Comment PT INR Specimen Type ART Sample Site R Radial pH 7.24 L Bicarbonate Actual 15.2 L POC Total CO2 16 Base Excess -12 L O2 Saturation 94 L ABG pCO2 35.4 ABG pO2 82 Ken Test NA O2 Delivery Device Nasal Can Liter Flow 2.0 Blood Gas Notified Whom ED Blood Gas Notified Time 1450 Sodium Potassium Chloride Carbon Dioxide Anion Gap BUN Creatinine Estim Creat Clear Calc Est GFR (MDRD) Af Amer Est GFR (MDRD) Non-Af BUN/Creatinine Ratio Glucose 1176 H* 1037 H* Lactic Acid Calcium Troponin I Urine Color Urine Clarity Urine pH Ur Specific [place] Urine Protein Urine Glucose (UA) Urine Ketones Urine Occult Blood Urine Nitrite Urine Bilirubin Urine Urobilinogen Ur Leukocyte Esterase Urine RBC Urine WBC Ur Squamous Epith Cells Amorphous Sediment Urine Bacteria Urine Mucus Acetone Level 02/05/19 02/05/19 02/05/19 18:05 18:50 20:00 WBC RBC Hgb Hct MCV MCH MCHC RDW Std Deviation RDW Coeff of [place] Plt Count MPV Immature Gran % (Auto) Neut % (Auto) Lymph % (Auto) [place] % (Auto) Eos % (Auto) Baso % (Auto) Absolute Neuts (auto) Absolute Lymphs (auto) Nucleated RBC % Differential Comment PT INR Specimen Type Sample Site pH Bicarbonate Actual POC Total CO2 Base Excess O2 Saturation ABG pCO2 ABG pO2 Ken Test O2 Delivery Device Liter Flow Blood Gas Notified Whom Blood Gas Notified Time Sodium 146 H Potassium 3.5 Chloride 115 H Carbon Dioxide 22.0 Anion Gap 9 BUN 53 H Creatinine 2.46 H Estim Creat Clear Calc 30.23 Est GFR (MDRD) Af Amer 34 L Est GFR (MDRD) Non-Af 28 L BUN/Creatinine Ratio 21.5 H Glucose 968 H* 929 H* 881 H* Lactic Acid Calcium 8.3 L Troponin I Urine Color Urine Clarity Urine pH Ur Specific [place] Urine Protein Urine Glucose (UA) Urine Ketones Urine Occult Blood Urine Nitrite Urine Bilirubin Urine Urobilinogen Ur Leukocyte Esterase Urine RBC Urine WBC Ur Squamous Epith Cells Amorphous Sediment Urine Bacteria Urine Mucus Acetone Level 02/05/19 02/05/19 02/05/19 21:15 22:05 23:15 WBC RBC Hgb Hct MCV MCH MCHC RDW Std Deviation RDW Coeff of [place] Plt Count MPV Immature Gran % (Auto) Neut % (Auto) Lymph % (Auto) [place] % (Auto) Eos % (Auto) Baso % (Auto) Absolute Neuts (auto) Absolute Lymphs (auto) Nucleated RBC % Differential Comment PT INR Specimen Type Sample Site pH Bicarbonate Actual POC Total CO2 Base Excess O2 Saturation ABG pCO2 ABG pO2 Ken Test O2 Delivery Device Liter Flow Blood Gas Notified Whom Blood Gas Notified Time Sodium 149 H Potassium 3.9 Chloride 120 H Carbon Dioxide 23.0 Anion Gap 6 BUN 48 H Creatinine 2.18 H Estim Creat Clear Calc 34.11 Est GFR (MDRD) Af Amer 39 L Est GFR (MDRD) Non-Af 32 L BUN/Creatinine Ratio 22.0 H Glucose 805 H* 730 H* 754 H* Lactic Acid Calcium 8.4 L Troponin I Urine Color Urine Clarity Urine pH Ur Specific [place] Urine Protein Urine Glucose (UA) Urine Ketones Urine Occult Blood Urine Nitrite Urine Bilirubin Urine Urobilinogen Ur Leukocyte Esterase Urine RBC Urine WBC Ur Squamous Epith Cells Amorphous Sediment Urine Bacteria Urine Mucus Acetone Level 02/06/19 02/06/19 02/06/19 01:10 02:00 05:15 WBC 14.6 H RBC 4.12 L Hgb 11.9 L Hct 38.4 L MCV 93.2 D MCH 28.9 MCHC 31.0 L RDW Std Deviation 50.3 H RDW Coeff of [place] 14.7 H Plt Count 168 MPV 10.5 Immature Gran % (Auto) 0.500 Neut % (Auto) 90.6 H Lymph % (Auto) 2.[address] % (Auto) 5.2 Eos % (Auto) 1.4 Baso % (Auto) 0.2 Absolute Neuts (auto) 13.3 H Absolute Lymphs (auto) 0.30 L Nucleated RBC % 0 Differential Comment SCANNED PT INR Specimen Type Sample Site pH Bicarbonate Actual POC Total CO2 Base Excess O2 Saturation ABG pCO2 ABG pO2 Ken Test O2 Delivery Device Liter Flow Blood Gas Notified Whom Blood Gas Notified Time Sodium 152 H Potassium 4.2 Chloride 123 H Carbon Dioxide 25.0 Anion Gap 4 L BUN 46 H Creatinine 2.06 H Estim Creat Clear Calc 36.10 Est GFR (MDRD) Af Amer 41 L Est GFR (MDRD) Non-Af 34 L BUN/Creatinine Ratio 22.3 H Glucose 702 H* 622 H* Lactic Acid Calcium 8.6 Troponin I Urine Color Urine Clarity Urine pH Ur Specific [place] Urine Protein Urine Glucose (UA) Urine Ketones Urine Occult Blood Urine Nitrite Urine Bilirubin Urine Urobilinogen Ur Leukocyte Esterase Urine RBC Urine WBC Ur Squamous Epith Cells Amorphous Sediment Urine Bacteria Urine Mucus Acetone Level 02/06/19 05:15 WBC RBC Hgb Hct MCV MCH MCHC RDW Std Deviation RDW Coeff of [place] Plt Count MPV Immature Gran % (Auto) Neut % (Auto) Lymph % (Auto) [place] % (Auto) Eos % (Auto) Baso % (Auto) Absolute Neuts (auto) Absolute Lymphs (auto) Nucleated RBC % Differential Comment PT INR Specimen Type Sample Site pH Bicarbonate Actual POC Total CO2 Base Excess O2 Saturation ABG pCO2 ABG pO2 Ken Test O2 Delivery Device Liter Flow Blood Gas Notified Whom Blood Gas Notified Time Sodium 156 H Potassium 4.6 Chloride 124 H Carbon Dioxide 23.0 Anion Gap 9 BUN 46 H Creatinine 1.94 H Estim Creat Clear Calc 38.33 Est GFR (MDRD) Af Amer 44 L Est GFR (MDRD) Non-Af 36 L BUN/Creatinine Ratio 23.7 H Glucose 581 H* Lactic Acid Calcium 8.5 Troponin I Urine Color Urine Clarity Urine pH Ur Specific [place] Urine Protein Urine Glucose (UA) Urine Ketones Urine Occult Blood Urine Nitrite Urine Bilirubin Urine Urobilinogen Ur Leukocyte Esterase Urine RBC Urine WBC Ur Squamous Epith Cells Amorphous Sediment Urine Bacteria Urine Mucus Acetone Level POC Glucose 02/06/19 02/06/19 02/06/19 05:58 05:05 04:10 POC Glucose > 500 H* > 500 H* > 500 H* 02/06/19 02/05/19 03:01 23:08 POC Glucose > 500 H* > 500 H* Clinical Impression(s) from Imaging Studies Brain CT 02/05/19 13:17 IMPRESSION: Chronic involutional changes of the brain. Electronically Signed: Maikel Cevallos, at 14:56 EDT , Service support , Chest X-Ray 02/05/19 13:17 IMPRESSION: Findings suggestive of a mild degree of CHF with blunting of both costophrenic angles and bibasilar atelectasis. Electronically Signed: Maikel Cevallos, at 14:51 EDT , Service support , Assessment/Plan Active and Suspected Problems Hyperosmolar coma due to secondary diabetes (Acute) RECOMMENDATIONS: 1. Obtain ABG 2. Continue empiric vancomycin 3. Insulin drip per protocol 4. Increase free water intake 5. BMP in 2 hours 6. Clarify CODE STATUS with family if available IMPRESSIONS: 1. Hyperosmolar non-ketosis with coma/metabolic encephalopathy Patient presented with a blood glucose of over 1500. Patient has not been able to answer many questions at this time. Patient is on an insulin drip and appears to be improving per protocol. Patient will be at risk for cerebral edema, but initial CT scan showed atrophy only. Will obtain an ABG for evaluation of hypercarbic respiratory failure. Patient is receiving aggressive fluid resuscitation. Continue to monitor. 2. Possible staph aureus sepsis Patient is growing staph aureus from blood cultures. Unclear if this is a contaminant versus a true infection. Patient has been placed on vancomycin. Blood pressures appear to be appropriate at this time. Patient does have some superficial skin wounds, but none of these appear to have fluctuance. 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 Repeat blood cultures at 24 hours to ensure clearance. 3. Acute kidney injury secondary to #1/Hypernatremia/hyperchloremic metabolic acidosis Patient likely prerenal. Appears to be improving with fluid resuscitation. Patient has received significant normal saline and this may be adding to patient's hypernatremia and hyperchloremia. Patient's corrected sodium on presentation would be 169 mEq/L. We will transition patient to more free water. Continue to watch sodiums closely. 4. CAD/paroxysmal A. fib/chronic Coumadin therapy/PAD/chronic diastolic CHF Given need for antibiotics, patient's INR will need to be watched. Coumadin has been held for now. Reasonable to use SCDs for DVT prophylaxis. Will need to watch fluid status closely as patient may go into flash pulmonary edema given level of fluids. Patient appears to be hypovolemic at this time. 5. Reported COPD versus pulmonary fibrosis/acute hypercarbic respiratory failure Unclear pulmonary history. Patient reportedly has COPD, but previous CT scan show her social think giving possible pulmonary fibrosis. Patient is on bronchodilators at this time. Patient does not appear to have purulent sputum, so we will hold off on any steroid therapy. Continue with bronchodilators only. Attempt to obtain further information. ABG does show non-anion gap metabolic acidosis with failure to compensate despite BiPAP therapy. This would constitute acute hypercarbic respiratory failure. Clinical suspicion for decreased mental status leading to failure to compensate. Will increase BiPAP to attempt to compensate for metabolic acidosis for now. 6. Advanced age/hyperlipidemia/hypertension/history of osteomyelitis Complicates care, management, recovery and prognosis. Okay to continue with baseline medications, but will need to watch blood pressure closely given positive blood cultures. If positive blood cultures persist, echocardiogram for evaluation of endocarditis and possible MRI of the spine for discitis would be necessary. Need to clarify CODE STATUS once patient's family arrives. Patient will be a full code by default at this time. TIME: 44 minutes critical care time spent addressing patient's hyperosmolar non-ketosis with coma, possible staph sepsis, acute kidney injury, respiratory failure, review of all data and collaboration with care team (7 AM to 8 AM) Code Visit Procedures: [id number] Critial Care 1st Hr
[2019-02-06 07:40] LABS: Bedside Glucose > 500 mg/dL (70-110)
[2019-02-06 07:56] LABS: Allen Test POS; Base Excess -5 mmol/L (-2 to +2); Bicarbonate 21.5 mmol/L (22-26); Blood Gas Specimen Type ART; EPAP 5; FI02 21; IPAP 10; PO2 71 mmHG (75-100); RR 14; SITE R Radial; SO2 92 % (95-99); Time Given 746; Total Carbon Dioxide 23 mmol/L; pCO2 44.7 mmHg (35-45); pH 7.29 (7.35-7.45)
[2019-02-06 09:33] LABS: Anion Gap 7 (5-15); BUN 46 mg/dL (7-18); BUN/Creat Ratio 23.7 RATIO (10-20); Calcium,Total 8.7 mg/dL (8.5-10.1); Chloride 124 mmol/L (98-107); Creatinine, Serum 1.94 mg/dL (0.70-1.30); EST Glomerular Filtration Rate 36 mL/min (>60); Est Glom Filt Rate - Afr Amer 44 mL/min (>60); Estimated Creatinine Clearance 38.33 ml/min; Glucose 592 mg/dL (74-106); Potassium 4.6 mmol/L (3.5-5.1); Sodium Level 155 mmol/L (136-145)
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
[2019-02-06 10:25] LABS: Bedside Glucose > 500 mg/dL (70-110)
[2019-02-06 10:25] LABS: Bedside Glucose > 500 mg/dL (70-110)
--- NOTE | 2019-02-06 10:31 | CASEMGMT ---
Case Management Progress Note: This investment underwriter at bedside during rounds, patient on bipap/confused. SW consulted to assist with finding a contact for patient and assess Home situation. CM will continue to follow for any emerging needs and DC coordination. Raimundo Bobby RNCM
[2019-02-06] MEDS: Metoprolol Tartrate 5 MG/5 ML Vial 2.5 MG IV ×3 (10:36→23:23)
[2019-02-06 10:45] LABS: Bedside Glucose > 500 mg/dL (70-110)
[2019-02-06 11:05] LABS: Bedside Glucose > 500 mg/dL (70-110)
[2019-02-06 11:30] LABS: Bedside Glucose > 500 mg/dL (70-110)
--- NOTE | 2019-02-06 11:42 | PN_ITS ---
Patient Problems: Active and Suspected Problems Hyperosmolar coma due to secondary diabetes (Acute) Subjective: Still somnolent, but becoming more alert. Vitals/I&O's: Vital Signs Temp Pulse Resp BP Pulse Ox 35.9 C L 84 16 167/68 H 97 02/06/19 04:00 02/06/19 10:36 02/06/19 09:34 02/06/19 10:36 02/06/19 09:34 Oxygen Flow Rate (L/min) 2 Oxygen Delivery Method Bi-pap Weight: 82.4 kg Body Mass Index (BMI) 24.5 Finger Stick Blood Glucose 534 Intake and Output for Last 24 Hours 02/04/19 02/05/19 02/06/19 23:59 23:59 23:59 Intake Total 4903.37 / 5053.37 1690.08 / 1690.08 Output Total 2700 / 2700 800 / 800 Balance 2203.37 / 2353.37 890.08 / 890.08 General: No apparent distress, Confused, - - on BiPAP. HEENT: Atraumatic, Normocephalic Oral: Moist Mucosa, No Gingival or Mucosal Lesions/ Ulcerations Neck: No Nodes, Thyroid Normal Size and Texture Lungs: Diminished, - - coarse breath sounds bilaterally Cardiovascular: Regular rate, Regular Rhythm, Normal S1, Normal S2, No murmurs Abdomen: Bowel Sounds Present, Soft, Non Tender, Non-Distended, No Hepato- splenomegaly Extremities: No edema, No Calf Tenderness Skin: No rashes, No breakdown Musculoskeletal: No Tenderness to Palpation of Joints or Extremities, No Muscle Wasting Neurological: - - no clonus. DTR 1/4 in LE. Psych/Mental Status: Normal Affect, Appropriate Microbiology Past 72 Hours 02/05/19 13:30 Blood Culture (Wb) - Left Forearm Blood Culture - Preliminary 02/05/19 13:40 Blood Culture (Wb) - Right Wrist Bacteria Detection (PCR) - Preliminary Staphylococcus aureus 02/05/19 13:40 Blood Culture (Wb) - Right Wrist Blood Culture - Preliminary Laboratory Results 02/05/19 11:54: WBC 13.8 H, RBC 4.22 L, Hgb 12.2 L, Hct 44.3, MCV 105.0 H, MCH 28.9, MCHC 27.5 L, RDW Std Deviation 57.7 H, RDW Coeff of [place] 14.9 H, Plt Count 205, MPV 11.7, Immature Gran % (Auto) 1.000 H, Neut % (Auto) 89.4 H, Lymph % (Auto) 1.4 L, Hawkins % (Auto) 8.0, Eos % (Auto) 0.0, Baso % (Auto) 0.2, Absolute Neuts (auto) 12.3 H, Absolute Lymphs (auto) 0.19 L, Nucleated RBC % 0, Differential Comment COMMENT 02/05/19 11:54: PT 21.6 H, INR 1.9 02/05/19 11:54: Sodium 129 L, Potassium 4.9, Chloride 93 L, Carbon Dioxide 19.0 L, Anion Gap 17 H, BUN 62 H, Creatinine 3.17 H, Estim Creat Clear Calc 22.07, Est GFR (MDRD) Af Amer 25 L, Est GFR (MDRD) Non-Af 21 L, BUN/Creatinine Ratio 19.6, Glucose 1566 H*, Calcium 9.3, Troponin I 0.017 02/05/19 11:54: Acetone Level SMALL H 02/05/19 13:35: Lactic Acid 2.0 02/05/19 14:16: Urine Color Yellow, Urine Clarity Clear, Urine pH 5.0, Ur Specific [place] 1.010, Urine Protein Negative, Urine Glucose (UA) 1000 H, Urine Ketones 15 H, Urine Occult Blood 10 H, Urine Nitrite Negative, Urine Bilirubin Negative, Urine Urobilinogen Normal, Ur Leukocyte Esterase Negative, Urine RBC 0 SEEN, Urine WBC 0 SEEN, Ur Squamous Epith Cells 0 SEEN, Amorphous Sediment 1+, Urine Bacteria RARE, Urine Mucus 0 SEEN 02/05/19 14:51: Specimen Type ART, Sample Site R Radial, pH 7.24 L, Bicarbonate Actual 15.2 L, POC Total CO2 16, Base Excess -12 L, O2 Saturation 94 L, ABG pCO2 35.4, ABG pO2 82, Ken Test NA, O2 Delivery Device Nasal Can, Liter Flow 2.0, Blood Gas Notified Whom ED , Blood Gas Notified Time 1450 02/05/19 16:05: Glucose 1176 H* 02/05/19 17:08: Glucose 1037 H* 02/05/19 18:05: Sodium 146 H, Potassium 3.5, Chloride 115 H, Carbon Dioxide 22.0, Anion Gap 9, BUN 53 H, Creatinine 2.46 H, Estim Creat Clear Calc 30.23, Est GFR (MDRD) Af Amer 34 L, Est GFR (MDRD) Non-Af 28 L, BUN/Creatinine Ratio 21.5 H, Glucose 968 H*, Calcium 8.3 L 02/05/19 18:50: Glucose 929 H* 02/05/19 20:00: Glucose 881 H* 02/05/19 21:15: Glucose 805 H* 02/05/19 22:05: Sodium 149 H, Potassium 3.9, Chloride 120 H, Carbon Dioxide 23.0, Anion Gap 6, BUN 48 H, Creatinine 2.18 H, Estim Creat Clear Calc 34.11, Est GFR (MDRD) Af Amer 39 L, Est GFR (MDRD) Non-Af 32 L, BUN/Creatinine Ratio 22.0 H, Glucose 730 H*, Calcium 8.4 L 02/05/19 23:08: POC Glucose > 500 H* 02/05/19 23:15: Glucose 754 H* 02/06/19 01:01: POC Glucose > 500 H* 02/06/19 01:10: Glucose 702 H* 02/06/19 02:00: Sodium 152 H, Potassium 4.2, Chloride 123 H, Carbon Dioxide 25.0, Anion Gap 4 L, BUN 46 H, Creatinine 2.06 H, Estim Creat Clear Calc 36.10, Est GFR (MDRD) Af Amer 41 L, Est GFR (MDRD) Non-Af 34 L, BUN/Creatinine Ratio 22.3 H, Glucose 622 H*, Calcium 8.6 02/06/19 03:01: POC Glucose > 500 H* 02/06/19 04:10: POC Glucose > 500 H* 02/06/19 05:05: POC Glucose > 500 H* 02/06/19 05:15: WBC 14.6 H, RBC 4.12 L, Hgb 11.9 L, Hct 38.4 L, MCV 93.2 D, MCH 28.9, MCHC 31.0 L, RDW Std Deviation 50.3 H, RDW Coeff of [place] 14.7 H, Plt Count 168, MPV 10.5, Immature Gran % (Auto) 0.500, Neut % (Auto) 90.6 H, Lymph % (Auto) 2.1 L, [place] % (Auto) 5.2, Eos % (Auto) 1.4, Baso % (Auto) 0.2, Absolute Neuts (auto) 13.3 H, Absolute Lymphs (auto) 0.30 L, Nucleated RBC % 0, Differential Comment SCANNED 02/06/19 05:15: Sodium 156 H, Potassium 4.6, Chloride 124 H, Carbon Dioxide 23.0, Anion Gap 9, BUN 46 H, Creatinine 1.94 H, Estim Creat Clear Calc 38.33, Est GFR (MDRD) Af Amer 44 L, Est GFR (MDRD) Non-Af 36 L, BUN/Creatinine Ratio 23.7 H, Glucose 581 H*, Calcium 8.5 02/06/19 05:58: POC Glucose > 500 H* 02/06/19 07:31: POC Glucose > 500 H* 02/06/19 07:50: Specimen Type ART, Sample Site R Radial, pH 7.29 L, Bicarbonate Actual 21.5 L, POC Total CO2 23, Base Excess -5 L, O2 Saturation 92 L, O2 % 21, ABG pCO2 44.7, ABG pO2 71 L, Ken Test POS, Respiration Rate 14, O2 Delivery Device Bi / C PAP, EPAP 5, IPAP 10, Blood Gas Notified Whom ICU , Blood Gas Notified Time 746 02/06/19 08:18: POC Glucose > 500 H* 02/06/19 08:50: Sodium 155 H, Potassium 4.6, Chloride 124 H, Carbon Dioxide 24.0, Anion Gap 7, BUN 46 H, Creatinine 1.94 H, Estim Creat Clear Calc 38.33, Est GFR (MDRD) Af Amer 44 L, Est GFR (MDRD) Non-Af 36 L, BUN/Creatinine Ratio 23.7 H, Glucose 592 H*, Calcium 8.7 02/06/19 08:58: POC Glucose > 500 H* 02/06/19 10:32: POC Glucose > 500 H* 02/06/19 11:25: POC Glucose > 500 H* Current Medications Atorvastatin Calcium (Lipitor) 40 mg PO QHS [facility] Last Admin: 02/05/19 21:29 Dose: Not Given Documented by: Clopidogrel Bisulfate (Plavix) 75 mg PO DAILY [facility] Last Admin: 02/06/19 10:35 Dose: Not Given Documented by: Dextrose (D50w Syringe) 0 gm IV X1 PRN; Protocol PRN Reason: HYPOGLYCEMIA Dronedarone (Multaq) 400 mg PO BID [facility] Last Admin: 02/06/19 10:35 Dose: Not Given Documented by: Famotidine (Pepcid) 40 mg PO DAILY [facility] Last Admin: 02/06/19 10:35 Dose: Not Given Documented by[facility] Admin: 02/06/19 08:05 Dose: Not Given Documented by: Glucagon () 1 mg IM .X1 PRN PRN Reason: Hypoglycemia Insulin Human Lispro 100 unit/ (Sodium Chloride) 100 mls @ 8.47 mls/hr IV .[id number] [facility]; Protocol Last Titration: 02/06/19 10:33 Dose: 0.05 units/kg/hr, 4 mls/hr Documented by: Vancomycin IV Pharmacy to Dose (1,250 ea/ Sodium Chloride) 500 mls @ 250 mls/hr IV PRN PRN; Protocol Vancomycin HCl 1,250 mg/ (Sodium Chloride) 275 mls @ 167 mls/hr IV Q24H [facility] Dextrose/Sodium Chloride () 1,000 mls @ 110 mls/hr IV .Q9H6M [facility] Last Infusion: 02/06/19 10:00 Dose: 110 mls/hr Documented by: Dextrose () 1,000 mls @ 40 mls/hr IV .Q25H [facility] Last Infusion: 02/06/19 10:00 Dose: 40 mls/hr Documented by: Labetalol HCl (Trandate) 10 mg IV Q4H PRN PRN PRN Reason: SBP > 160 Last Admin: 02/06/19 01:40 Dose: 10 mg Documented by: Metoprolol Tartrate (Lopressor (Beta Hi)) 2.5 mg IV Q6 [facility] Last Admin: 02/06/19 10:36 Dose: 2.5 mg Documented by: Nitroglycerin (Nitrostat) 0.4 mg SUBLINGUAL Q5M PRN PRN Reason: Chest Pain Ondansetron HCl (Zofran) 4 mg IV Q6H PRN PRN PRN Reason: NAUSEA/VOMITING Sodium Chloride () 5 - 15 ml IV UD PRN PRN Reason: SALINE FLUSH Last Admin: 02/06/19 06:51 Dose: 10 ml Documented by: Medical Necessity - Tobacco Use Smoking Status: Unknown if ever smoked Tobacco Use: - - Unknown tobacco history-patient not able to provide Assessment/Plan All Active Problems Hyperosmolar coma due to secondary diabetes (Acute) Hypoglycemia (Resolved) Hypothermia (Resolved) Altered mental state (Acute) Acute osteomyelitis of metacarpal bone (Resolved) Osteomyelitis of toe of right foot (Resolved) Right 2nd toe suspected osteomyelitis (Resolved) Right 2nd toe gangrene (Resolved) 1. Hyperosmolar, hyperglycemia non-ketotic state * MS improving slightly * improved blood sugar with insulin gtt 2. Bacteremia * 2/2 positive. +S. aureus * continue vancomycin * repeat BCx pending. * unclear source 3. Sepsis * POA * 2/2 #2 * follow up cultures 4. BRIDGETT * improving * admission Cr 3.17, baseline 1.57 * received IVF * monitor 5. pafib * HF controlled * warfarin held given encephalopathy 6. VTE proph: SQ heparin Code Visit Inpatient E&M: 00118 Subs Hosp L3
[2019-02-06 12:30] LABS: Bedside Glucose 455 mg/dL (70-110)
--- NOTE | 2019-02-06 12:50 | CASEMGMT ---
Pt's arrived to unit, SW met w/ as pt is still on bipapp. SW verified the phone numbers, though thinks her number starts with [phone], and it is actually [phone]. PCP: Dr. Anthony Petersen Specialists: Heart doctor, she can't remember name, and Dr. Braswell Insurance/Prescription benefit: [employer]/Med[employer]are Pharmacy: [facility] in [place] or [place]. LW/POA: Not on file LNOK: Pt has two sons, grandchildren, lives w/ Living arrangements: Pt lives w/ in a trailer, ramp entry Transportation: Pt drives, does also Prior level of function: As per , pt independent, though falls at times. Pt is incontinent at times and can usually change himself. was not able to change pt prior to his needing to come to the hospital, as he was incontinent just prior to coming to the hospital. states pt bathes and does his ADL's, she does more of the cooking and cleaning. DME: Pt has C-Pap at home, with oxygen bled through it. Pt does not have walker or cane, though thinks pt could use this--she would like pt to have a rollator. She states that the doctor will not write a script for it as he did not think pt needed it. HHC/SNF: Pt has not had home health, has been to [facility] in the past. states pt will want to go home at discharge, will not want to go to [facility] again, though he seemed okay with [place]. also states [facility] SW asked about pt being dirty when he came in. She states he does care for himself but had been incontinent prior to coming in and she was unable to clean him up, he did not want her to. SW explained that we will continue to follow for discharge needs. Plan: states pt will want to return home. Will need assessed for home health, and if pt would qualify thinks pt would benefit from a walker, perhaps a rollator. SW/DESMOND will continue to follow. HENRRY Murphy
[2019-02-06 12:57] LABS: Anion Gap 4 (5-15); BUN 43 mg/dL (7-18); BUN/Creat Ratio 22.1 RATIO (10-20); Chloride 125 mmol/L (98-107); Creatinine, Serum 1.95 mg/dL (0.70-1.30); EST Glomerular Filtration Rate 36 mL/min (>60); Est Glom Filt Rate - Afr Amer 44 mL/min (>60); Estimated Creatinine Clearance 38.14 ml/min; Glucose 562 mg/dL (74-106); Sodium Level 155 mmol/L (136-145)
[2019-02-06] MEDS: Dext 5%-0.45% NS 1,000 ML 90 ML IV (13:00)
[2019-02-06 13:15] LABS: Bedside Glucose 463 mg/dL (70-110)
[2019-02-06 14:20] LABS: Bedside Glucose 500 mg/dL (70-110)
[2019-02-06 16:05] LABS: Bedside Glucose > 500 mg/dL (70-110)
[2019-02-06 17:10] LABS: Anion Gap 4 (5-15); BUN 41 mg/dL (7-18); BUN/Creat Ratio 22.3 RATIO (10-20); Calcium,Total 8.7 mg/dL (8.5-10.1); Chloride 125 mmol/L (98-107); Creatinine, Serum 1.84 mg/dL (0.70-1.30); EST Glomerular Filtration Rate 39 mL/min (>60); Est Glom Filt Rate - Afr Amer 47 mL/min (>60); Estimated Creatinine Clearance 40.42 ml/min; Glucose 549 mg/dL (74-106); Potassium 3.9 mmol/L (3.5-5.1); Sodium Level 155 mmol/L (136-145)
[2019-02-06 17:25] LABS: Bedside Glucose 437 mg/dL (70-110)
[2019-02-06] MEDS: Dext 5%-0.45% NS 1,000 ML 40 ML IV (17:30)
[2019-02-06 18:30] LABS: Bedside Glucose 446 mg/dL (70-110)
[2019-02-06 19:31] LABS: Bedside Glucose 438 mg/dL (70-110)
[2019-02-06 20:26] LABS: Bedside Glucose 409 mg/dL (70-110)
[2019-02-06 21:08] LABS: Anion Gap 4 (5-15); BUN 37 mg/dL (7-18); BUN/Creat Ratio 19.6 RATIO (10-20); Chloride 127 mmol/L (98-107); Creatinine, Serum 1.89 mg/dL (0.70-1.30); EST Glomerular Filtration Rate 38 mL/min (>60); Est Glom Filt Rate - Afr Amer 45 mL/min (>60); Estimated Creatinine Clearance 39.35 ml/min; Glucose 453 mg/dL (74-106); Potassium 3.6 mmol/L (3.5-5.1); Sodium Level 157 mmol/L (136-145)
[2019-02-06] MEDS: Heparin Injection (Vial) 5,000 UNIT/ML VIAL 5000 UNIT SC (21:26)
[2019-02-06 21:30] LABS: Bedside Glucose 362 mg/dL (70-110)
--- NOTE | 2019-02-06 22:09 | NURSING ---
called pharmacy earlier for labetalol for SBP >160; when med arrived pt's BP was 123/63. labetalol was not given; syringe placed in med fridge.
[2019-02-06 22:31] LABS: Bedside Glucose 376 mg/dL (70-110)
[2019-02-06 23:35] LABS: Bedside Glucose 305 mg/dL (70-110)
[2019-02-07] VITALS (42 sets, daily range): BP systolic 109–171; BP diastolic 52–98; PULSE 73–144; RESP 14–39; TEMP 37–37.6; O2SAT 95–100
[2019-02-07 00:26] LABS: Bedside Glucose 260 mg/dL (70-110)
[2019-02-07 00:35] LABS: Anion Gap 4 (5-15); BUN 33 mg/dL (7-18); BUN/Creat Ratio 18.8 RATIO (10-20); Chloride 130 mmol/L (98-107); Creatinine, Serum 1.76 mg/dL (0.70-1.30); EST Glomerular Filtration Rate 41 mL/min (>60); Est Glom Filt Rate - Afr Amer 49 mL/min (>60); Estimated Creatinine Clearance 42.25 ml/min; Glucose 314 mg/dL (74-106); Potassium 3.6 mmol/L (3.5-5.1); Sodium Level 159 mmol/L (136-145)
[2019-02-07 01:45] LABS: Bedside Glucose 271 mg/dL (70-110)
[2019-02-07 02:16] LABS: Bedside Glucose 258 mg/dL (70-110)
[2019-02-07] MEDS: Metoprolol Tartrate 5 MG/5 ML Vial 2.5 MG IV ×3 (02:27→06:41)
[2019-02-07] MEDS: CHLORHEXIDINE GLUC 2% CLOTH 1 EACH TOWELETTE TOPICAL (03:12)
[2019-02-07 03:16] LABS: Bedside Glucose 220 mg/dL (70-110)
[2019-02-07 04:21] LABS: Bedside Glucose 209 mg/dL (70-110)
[2019-02-07 04:25] LABS: Absolute Lymphocyte Count 0.29 X10^3/uL (0.83-4.51); Absolute Neutrophil Count 8.6 X10^3/uL (2.0-7.7); Basophil# 0.02 X10^3/uL; Basophil% 0.2 % (0-1); Eosinophil# 0.01 X10^3/uL; Eosinophils% 0.1 % (0-5); Hematocrit 36.8 % (40-54); Hemoglobin 11.4 g/dL (13.0-16.5); Lymphocyte # 0.29 X10^3/ul (4.0); Mean Corpuscular Hgb 28.4 pg (27.0-32.0); Mean Corpuscular Volume 91.5 fL (80-94); Mean Platelet Vol. 10.7 fl (6.2-12.0); Monocyte# 0.56 X10^3/uL; Monocyte% 5.9 % (0-10); NRBC Flagged by Analyzer 0 % (0-5); Neutrophil # 8.58 X10^3/uL (2.7-7.7); POSITIVE DIFFERENTIAL YES; POSITIVE MORPHOLOGY YES; Platelet Count 153 K/mm3 (150-450); RBC Distribution Width CV 15.1 % (11.6-14.6); RBC Distribution Width SD 50.8 fl (35.1-43.9); Red Blood Count 4.02 M/mm3 (4.6-6.2); White Blood Count 9.5 K/mm3 (4.4-11.0)
[2019-02-07 04:32] LABS: Differential Indicated SCAN CRITERIA MET
[2019-02-07 04:46] LABS: Anion Gap 5 (5-15); BUN 29 mg/dL (7-18); BUN/Creat Ratio 18.8 RATIO (10-20); Calcium,Total 8.8 mg/dL (8.5-10.1); Chloride 133 mmol/L (98-107); Creatinine, Serum 1.54 mg/dL (0.70-1.30); EST Glomerular Filtration Rate 48 mL/min (>60); Est Glom Filt Rate - Afr Amer 58 mL/min (>60); Estimated Creatinine Clearance 48.29 ml/min; Glucose 227 mg/dL (74-106); Potassium 3.5 mmol/L (3.5-5.1); Sodium Level 163 mmol/L (136-145)
[2019-02-07 04:50] LABS: International Normalized Ratio 2.4; Prothrombin Time (Protime)PT. 25.8 SECONDS (11.7-14.9)
[2019-02-07 05:00] LABS: Differential Comment SCANNED
[2019-02-07 06:11] LABS: Bedside Glucose 184 mg/dL (70-110)
[2019-02-07 06:11] LABS: Bedside Glucose 187 mg/dL (70-110)
--- NOTE | 2019-02-07 07:16 | PN_ITS ---
Subjective: Patient has remained hemodynamically stable overnight. Nursing is reporting increased spontaneous movement of both sides, but still not following commands. Despite significant free water, sodium has continued to climb. There is no seizure activity reported. Blood sugars are much better controlled. Patient did take 2 hours off of BiPAP therapy overnight. Patient did develop A. fib with RVR, but remained hemodynamically stable. Patient was given Lopressor with transient resolution. General: Confused, Disoriented, Lethargic, Non-Cooperative, - - Appears older than stated age. Good BiPAP synchrony. HEENT: Atraumatic, PERRLA, EOMI, Normocephalic, - - No scleral icterus or injection noted Oral: No Gingival or Mucosal Lesions/ Ulcerations, Dry Mucosa Neck: Supple, No JVD, No Nodes, Trachea Midline Lungs: No rhonchi, No wheeze, No rales, Diminished, - - Symmetric expansion. Cardiovascular: No murmurs, Irregular Rate, No rub noted, No Gallop, Tachycardic Abdomen: Bowel Sounds Present, Soft, Non Tender, Non-Distended, Obese Extremities: No clubbing, No cyanosis, No edema Skin: - - No changes compared to previous Musculoskeletal: No Tenderness to Palpation of Joints or Extremities Lymphatic: No Cervical, Supraclavicular, or Inguinal Adenopathy Neurological: Neuro grossly intact Psych/Mental Status: Flat Affect, Restless Vital Signs Temp Pulse Resp BP Pulse Ox 37.4 C H 137 H 30 H 152/77 H 95 02/07/19 06:00 02/07/19 06:41 02/07/19 06:00 02/07/19 06:00 02/07/19 06:00 Oxygen Flow Rate (L/min) 2 Oxygen Delivery Method Bi-pap Weight: 82.6 kg Body Mass Index (BMI) 24.5 Finger Stick Blood Glucose 187 Intake and Output for Last 24 Hours 02/05/19 02/06/19 02/07/19 23:59 23:59 23:59 Intake Total 4903.37 / 5053.37 3275.71 / 3350.71 763.04 / 763.04 Output Total 2700 / 2700 2575 / 2575 450 / 450 Balance 2203.37 / 2353.37 700.71 / 775.71 313.04 / 313.04 Labs (Last 48 Hours) 02/05/19 02/05/19 02/05/19 11:54 11:54 11:54 WBC 13.8 H RBC 4.22 L Hgb 12.2 L Hct 44.3 MCV 105.0 H MCH 28.9 MCHC 27.5 L RDW Std Deviation 57.7 H RDW Coeff of [place] 14.9 H Plt Count 205 MPV 11.7 Immature Gran % (Auto) 1.000 H Neut % (Auto) 89.4 H Lymph % (Auto) 1.4 L P[place] % (Auto) 8.0 Eos % (Auto) 0.0 Baso % (Auto) 0.2 Absolute Neuts (auto) 12.3 H Absolute Lymphs (auto) 0.19 L Nucleated RBC % 0 Differential Comment COMMENT PT 21.6 H INR 1.9 Specimen Type Sample Site pH Bicarbonate Actual POC Total CO2 Base Excess O2 Saturation O2 % ABG pCO2 ABG pO2 Ken Test Respiration Rate O2 Delivery Device Liter Flow EPAP IPAP Blood Gas Notified Whom Blood Gas Notified Time Sodium 129 L Potassium 4.9 Chloride 93 L Carbon Dioxide 19.0 L Anion Gap 17 H BUN 62 H Creatinine 3.17 H Estim Creat Clear Calc 22.07 Est GFR (MDRD) Af Amer 25 L Est GFR (MDRD) Non-Af 21 L BUN/Creatinine Ratio 19.6 Glucose 1566 H* Serum Osmolality Lactic Acid Calcium 9.3 Troponin I 0.017 Urine Color Urine Clarity Urine pH Ur Specific [place] Urine Protein Urine Glucose (UA) Urine Ketones Urine Occult Blood Urine Nitrite Urine Bilirubin Urine Urobilinogen Ur Leukocyte Esterase Urine RBC Urine WBC Ur Squamous Epith Cells Amorphous Sediment Urine Bacteria Urine Mucus Urine Osmolality Ur Random Sodium Urine Creatinine Acetone Level POC Glucose 02/05/19 02/05/19 02/05/19 11:54 13:35 14:16 WBC RBC Hgb Hct MCV MCH MCHC RDW Std Deviation RDW Coeff of [place] Plt Count MPV Immature Gran % (Auto) Neut % (Auto) Lymph % (Auto) Phelps % (Auto) Eos % (Auto) Baso % (Auto) Absolute Neuts (auto) Absolute Lymphs (auto) Nucleated RBC % Differential Comment PT INR Specimen Type Sample Site pH Bicarbonate Actual POC Total CO2 Base Excess O2 Saturation O2 % ABG pCO2 ABG pO2 Ken Test Respiration Rate O2 Delivery Device Liter Flow EPAP IPAP Blood Gas Notified Whom Blood Gas Notified Time Sodium Potassium Chloride Carbon Dioxide Anion Gap BUN Creatinine Estim Creat Clear Calc Est GFR (MDRD) Af Amer Est GFR (MDRD) Non-Af BUN/Creatinine Ratio Glucose Serum Osmolality Lactic Acid 2.0 Calcium Troponin I Urine Color Yellow Urine Clarity Clear Urine pH 5.0 Ur Specific [place] 1.010 Urine Protein Negative Urine Glucose (UA) 1000 H Urine Ketones 15 H Urine Occult Blood 10 H Urine Nitrite Negative Urine Bilirubin Negative Urine Urobilinogen Normal Ur Leukocyte Esterase Negative Urine RBC 0 SEEN Urine WBC 0 SEEN Ur Squamous Epith Cells 0 SEEN Amorphous Sediment 1+ Urine Bacteria RARE Urine Mucus 0 SEEN Urine Osmolality Ur Random Sodium Urine Creatinine Acetone Level SMALL H POC Glucose 02/05/19 02/05/19 02/05/19 14:51 16:05 17:08 WBC RBC Hgb Hct MCV MCH MCHC RDW Std Deviation RDW Coeff of [place] Plt Count MPV Immature Gran % (Auto) Neut % (Auto) Lymph % (Auto) Phelps % (Auto) Eos % (Auto) Baso % (Auto) Absolute Neuts (auto) Absolute Lymphs (auto) Nucleated RBC % Differential Comment PT INR Specimen Type ART Sample Site R Radial pH 7.24 L Bicarbonate Actual 15.2 L POC Total CO2 16 Base Excess -12 L O2 Saturation 94 L O2 % ABG pCO2 35.4 ABG pO2 82 Ken Test NA Respiration Rate O2 Delivery Device Nasal Can Liter Flow 2.0 EPAP IPAP Blood Gas Notified Whom ED Blood Gas Notified Time 1450 Sodium Potassium Chloride Carbon Dioxide Anion Gap BUN Creatinine Estim Creat Clear Calc Est GFR (MDRD) Af Amer Est GFR (MDRD) Non-Af BUN/Creatinine Ratio Glucose 1176 H* 1037 H* Serum Osmolality Lactic Acid Calcium Troponin I Urine Color Urine Clarity Urine pH Ur Specific [place] Urine Protein Urine Glucose (UA) Urine Ketones Urine Occult Blood Urine Nitrite Urine Bilirubin Urine Urobilinogen Ur Leukocyte Esterase Urine RBC Urine WBC Ur Squamous Epith Cells Amorphous Sediment Urine Bacteria Urine Mucus Urine Osmolality Ur Random Sodium Urine Creatinine Acetone Level POC Glucose 02/05/19 02/05/19 02/05/19 18:05 18:50 20:00 WBC RBC Hgb Hct MCV MCH MCHC RDW Std Deviation RDW Coeff of [place] Plt Count MPV Immature Gran % (Auto) Neut % (Auto) Lymph % (Auto) Phelps % (Auto) Eos % (Auto) Baso % (Auto) Absolute Neuts (auto) Absolute Lymphs (auto) Nucleated RBC % Differential Comment PT INR Specimen Type Sample Site pH Bicarbonate Actual POC Total CO2 Base Excess O2 Saturation O2 % ABG pCO2 ABG pO2 Ken Test Respiration Rate O2 Delivery Device Liter Flow EPAP IPAP Blood Gas Notified Whom Blood Gas Notified Time Sodium 146 H Potassium 3.5 Chloride 115 H Carbon Dioxide 22.0 Anion Gap 9 BUN 53 H Creatinine 2.46 H Estim Creat Clear Calc 30.23 Est GFR (MDRD) Af Amer 34 L Est GFR (MDRD) Non-Af 28 L BUN/Creatinine Ratio 21.5 H Glucose 968 H* 929 H* 881 H* Serum Osmolality Lactic Acid Calcium 8.3 L Troponin I Urine Color Urine Clarity Urine pH Ur Specific [place] Urine Protein Urine Glucose (UA) Urine Ketones Urine Occult Blood Urine Nitrite Urine Bilirubin Urine Urobilinogen Ur Leukocyte Esterase Urine RBC Urine WBC Ur Squamous Epith Cells Amorphous Sediment Urine Bacteria Urine Mucus Urine Osmolality Ur Random Sodium Urine Creatinine Acetone Level POC Glucose 02/05/19 02/05/19 02/05/19 21:15 22:05 23:08 WBC RBC Hgb Hct MCV MCH MCHC RDW Std Deviation RDW Coeff of [place] Plt Count MPV Immature Gran % (Auto) Neut % (Auto) Lymph % (Auto) Phelps % (Auto) Eos % (Auto) Baso % (Auto) Absolute Neuts (auto) Absolute Lymphs (auto) Nucleated RBC % Differential Comment PT INR Specimen Type Sample Site pH Bicarbonate Actual POC Total CO2 Base Excess O2 Saturation O2 % ABG pCO2 ABG pO2 Ken Test Respiration Rate O2 Delivery Device Liter Flow EPAP IPAP Blood Gas Notified Whom Blood Gas Notified Time Sodium 149 H Potassium 3.9 Chloride 120 H Carbon Dioxide 23.0 Anion Gap 6 BUN 48 H Creatinine 2.18 H Estim Creat Clear Calc 34.11 Est GFR (MDRD) Af Amer 39 L Est GFR (MDRD) Non-Af 32 L BUN/Creatinine Ratio 22.0 H Glucose 805 H* 730 H* Serum Osmolality Lactic Acid Calcium 8.4 L Troponin I Urine Color Urine Clarity Urine pH Ur Specific [place] Urine Protein Urine Glucose (UA) Urine Ketones Urine Occult Blood Urine Nitrite Urine Bilirubin Urine Urobilinogen Ur Leukocyte Esterase Urine RBC Urine WBC Ur Squamous Epith Cells Amorphous Sediment Urine Bacteria Urine Mucus Urine Osmolality Ur Random Sodium Urine Creatinine Acetone Level POC Glucose > 500 H* 02/05/19 02/06/19 02/06/19 23:15 01:01 01:10 WBC RBC Hgb Hct MCV MCH MCHC RDW Std Deviation RDW Coeff of [place] Plt Count MPV Immature Gran % (Auto) Neut % (Auto) Lymph % (Auto) Phelps % (Auto) Eos % (Auto) Baso % (Auto) Absolute Neuts (auto) Absolute Lymphs (auto) Nucleated RBC % Differential Comment PT INR Specimen Type Sample Site pH Bicarbonate Actual POC Total CO2 Base Excess O2 Saturation O2 % ABG pCO2 ABG pO2 Ken Test Respiration Rate O2 Delivery Device Liter Flow EPAP IPAP Blood Gas Notified Whom Blood Gas Notified Time Sodium Potassium Chloride Carbon Dioxide Anion Gap BUN Creatinine Estim Creat Clear Calc Est GFR (MDRD) Af Amer Est GFR (MDRD) Non-Af BUN/Creatinine Ratio Glucose 754 H* 702 H* Serum Osmolality Lactic Acid Calcium Troponin I Urine Color Urine Clarity Urine pH Ur Specific [place] Urine Protein Urine Glucose (UA) Urine Ketones Urine Occult Blood Urine Nitrite Urine Bilirubin Urine Urobilinogen Ur Leukocyte Esterase Urine RBC Urine WBC Ur Squamous Epith Cells Amorphous Sediment Urine Bacteria Urine Mucus Urine Osmolality Ur Random Sodium Urine Creatinine Acetone Level POC Glucose > 500 H* 02/06/19 02/06/19 02/06/19 02:00 03:01 04:10 WBC RBC Hgb Hct MCV MCH MCHC RDW Std Deviation RDW Coeff of [place] Plt Count MPV Immature Gran % (Auto) Neut % (Auto) Lymph % (Auto) [place] % (Auto) Eos % (Auto) Baso % (Auto) Absolute Neuts (auto) Absolute Lymphs (auto) Nucleated RBC % Differential Comment PT INR Specimen Type Sample Site pH Bicarbonate Actual POC Total CO2 Base Excess O2 Saturation O2 % ABG pCO2 ABG pO2 Ken Test Respiration Rate O2 Delivery Device Liter Flow EPAP IPAP Blood Gas Notified Whom Blood Gas Notified Time Sodium 152 H Potassium 4.2 Chloride 123 H Carbon Dioxide 25.0 Anion Gap 4 L BUN 46 H Creatinine 2.06 H Estim Creat Clear Calc 36.10 Est GFR (MDRD) Af Amer 41 L Est GFR (MDRD) Non-Af 34 L BUN/Creatinine Ratio 22.3 H Glucose 622 H* Serum Osmolality Lactic Acid Calcium 8.6 Troponin I Urine Color Urine Clarity Urine pH Ur Specific [place] Urine Protein Urine Glucose (UA) Urine Ketones Urine Occult Blood Urine Nitrite Urine Bilirubin Urine Urobilinogen Ur Leukocyte Esterase Urine RBC Urine WBC Ur Squamous Epith Cells Amorphous Sediment Urine Bacteria Urine Mucus Urine Osmolality Ur Random Sodium Urine Creatinine Acetone Level POC Glucose > 500 H* > 500 H* 02/06/19 02/06/19 02/06/19 05:05 05:15 05:15 WBC 14.6 H RBC 4.12 L Hgb 11.9 L Hct 38.4 L MCV 93.2 D MCH 28.9 MCHC 31.0 L RDW Std Deviation 50.3 H RDW Coeff of [place] 14.7 H Plt Count 168 MPV 10.5 Immature Gran % (Auto) 0.500 Neut % (Auto) 90.6 H Lymph % (Auto) 2.1 L [place] % (Auto) 5.2 Eos % (Auto) 1.4 Baso % (Auto) 0.2 Absolute Neuts (auto) 13.3 H Absolute Lymphs (auto) 0.30 L Nucleated RBC % 0 Differential Comment SCANNED PT INR Specimen Type Sample Site pH Bicarbonate Actual POC Total CO2 Base Excess O2 Saturation O2 % ABG pCO2 ABG pO2 Ken Test Respiration Rate O2 Delivery Device Liter Flow EPAP IPAP Blood Gas Notified Whom Blood Gas Notified Time Sodium 156 H Potassium 4.6 Chloride 124 H Carbon Dioxide 23.0 Anion Gap 9 BUN 46 H Creatinine 1.94 H Estim Creat Clear Calc 38.33 Est GFR (MDRD) Af Amer 44 L Est GFR (MDRD) Non-Af 36 L BUN/Creatinine Ratio 23.7 H Glucose 581 H* Serum Osmolality Lactic Acid Calcium 8.5 Troponin I Urine Color Urine Clarity Urine pH Ur Specific [place] Urine Protein Urine Glucose (UA) Urine Ketones Urine Occult Blood Urine Nitrite Urine Bilirubin Urine Urobilinogen Ur Leukocyte Esterase Urine RBC Urine WBC Ur Squamous Epith Cells Amorphous Sediment Urine Bacteria Urine Mucus Urine Osmolality Ur Random Sodium Urine Creatinine Acetone Level POC Glucose > 500 H* 02/06/19 02/06/19 02/06/19 05:58 07:31 07:50 WBC RBC Hgb Hct MCV MCH MCHC RDW Std Deviation RDW Coeff of [place] Plt Count MPV Immature Gran % (Auto) Neut % (Auto) Lymph % (Auto) [place] % (Auto) Eos % (Auto) Baso % (Auto) Absolute Neuts (auto) Absolute Lymphs (auto) Nucleated RBC % Differential Comment PT INR Specimen Type ART Sample Site R Radial pH 7.29 L Bicarbonate Actual 21.5 L POC Total CO2 23 Base Excess -5 L O2 Saturation 92 L O2 % 21 ABG pCO2 44.7 ABG pO2 71 L Ken Test POS Respiration Rate 14 O2 Delivery Device Bi / C PAP Liter Flow EPAP 5 IPAP 10 Blood Gas Notified Whom ICU MD Blood Gas Notified Time 746 Sodium Potassium Chloride Carbon Dioxide Anion Gap BUN Creatinine Estim Creat Clear Calc Est GFR (MDRD) Af Amer Est GFR (MDRD) Non-Af BUN/Creatinine Ratio Glucose Serum Osmolality Lactic Acid Calcium Troponin I Urine Color Urine Clarity Urine pH Ur Specific [place] Urine Protein Urine Glucose (UA) Urine Ketones Urine Occult Blood Urine Nitrite Urine Bilirubin Urine Urobilinogen Ur Leukocyte Esterase Urine RBC Urine WBC Ur Squamous Epith Cells Amorphous Sediment Urine Bacteria Urine Mucus Urine Osmolality Ur Random Sodium Urine Creatinine Acetone Level POC Glucose > 500 H* > 500 H* 02/06/19 02/06/19 02/06/19 08:18 08:50 08:58 WBC RBC Hgb Hct MCV MCH MCHC RDW Std Deviation RDW Coeff of [place] Plt Count MPV Immature Gran % (Auto) Neut % (Auto) Lymph % (Auto) Phelps % (Auto) Eos % (Auto) Baso % (Auto) Absolute Neuts (auto) Absolute Lymphs (auto) Nucleated RBC % Differential Comment PT INR Specimen Type Sample Site pH Bicarbonate Actual POC Total CO2 Base Excess O2 Saturation O2 % ABG pCO2 ABG pO2 Ken Test Respiration Rate O2 Delivery Device Liter Flow EPAP IPAP Blood Gas Notified Whom Blood Gas Notified Time Sodium 155 H Potassium 4.6 Chloride 124 H Carbon Dioxide 24.0 Anion Gap 7 BUN 46 H Creatinine 1.94 H Estim Creat Clear Calc 38.33 Est GFR (MDRD) Af Amer 44 L Est GFR (MDRD) Non-Af 36 L BUN/Creatinine Ratio 23.7 H Glucose 592 H* Serum Osmolality Lactic Acid Calcium 8.7 Troponin I Urine Color Urine Clarity Urine pH Ur Specific [place] Urine Protein Urine Glucose (UA) Urine Ketones Urine Occult Blood Urine Nitrite Urine Bilirubin Urine Urobilinogen Ur Leukocyte Esterase Urine RBC Urine WBC Ur Squamous Epith Cells Amorphous Sediment Urine Bacteria Urine Mucus Urine Osmolality Ur Random Sodium Urine Creatinine Acetone Level POC Glucose > 500 H* > 500 H* 02/06/19 02/06/19 02/06/19 10:32 11:25 12:15 WBC RBC Hgb Hct MCV MCH MCHC RDW Std Deviation RDW Coeff of [place] Plt Count MPV Immature Gran % (Auto) Neut % (Auto) Lymph % (Auto) [place] % (Auto) Eos % (Auto) Baso % (Auto) Absolute Neuts (auto) Absolute Lymphs (auto) Nucleated RBC % Differential Comment PT INR Specimen Type Sample Site pH Bicarbonate Actual POC Total CO2 Base Excess O2 Saturation O2 % ABG pCO2 ABG pO2 Ken Test Respiration Rate O2 Delivery Device Liter Flow EPAP IPAP Blood Gas Notified Whom Blood Gas Notified Time Sodium 155 H Potassium 4.0 Chloride 125 H Carbon Dioxide 26.0 Anion Gap 4 L BUN 43 H Creatinine 1.95 H Estim Creat Clear Calc 38.14 Est GFR (MDRD) Af Amer 44 L Est GFR (MDRD) Non-Af 36 L BUN/Creatinine Ratio 22.1 H Glucose 562 H* Serum Osmolality Lactic Acid Calcium 9.0 Troponin I Urine Color Urine Clarity Urine pH Ur Specific [place] Urine Protein Urine Glucose (UA) Urine Ketones Urine Occult Blood Urine Nitrite Urine Bilirubin Urine Urobilinogen Ur Leukocyte Esterase Urine RBC Urine WBC Ur Squamous Epith Cells Amorphous Sediment Urine Bacteria Urine Mucus Urine Osmolality Ur Random Sodium Urine Creatinine Acetone Level POC Glucose > 500 H* > 500 H* 02/06/19 02/06/19 02/06/19 12:17 13:10 14:01 WBC RBC Hgb Hct MCV MCH MCHC RDW Std Deviation RDW Coeff of [place] Plt Count MPV Immature Gran % (Auto) Neut % (Auto) Lymph % (Auto) [place] % (Auto) Eos % (Auto) Baso % (Auto) Absolute Neuts (auto) Absolute Lymphs (auto) Nucleated RBC % Differential Comment PT INR Specimen Type Sample Site pH Bicarbonate Actual POC Total CO2 Base Excess O2 Saturation O2 % ABG pCO2 ABG pO2 Ken Test Respiration Rate O2 Delivery Device Liter Flow EPAP IPAP Blood Gas Notified Whom Blood Gas Notified Time Sodium Potassium Chloride Carbon Dioxide Anion Gap BUN Creatinine Estim Creat Clear Calc Est GFR (MDRD) Af Amer Est GFR (MDRD) Non-Af BUN/Creatinine Ratio Glucose Serum Osmolality Lactic Acid Calcium Troponin I Urine Color Urine Clarity Urine pH Ur Specific [place] Urine Protein Urine Glucose (UA) Urine Ketones Urine Occult Blood Urine Nitrite Urine Bilirubin Urine Urobilinogen Ur Leukocyte Esterase Urine RBC Urine WBC Ur Squamous Epith Cells Amorphous Sediment Urine Bacteria Urine Mucus Urine Osmolality Ur Random Sodium Urine Creatinine Acetone Level POC Glucose 455 H* 463 H* 500 H* 02/06/19 02/06/19 02/06/19 16:00 16:10 17:09 WBC RBC Hgb Hct MCV MCH MCHC RDW Std Deviation RDW Coeff of [place] Plt Count MPV Immature Gran % (Auto) Neut % (Auto) Lymph % (Auto) [place] % (Auto) Eos % (Auto) Baso % (Auto) Absolute Neuts (auto) Absolute Lymphs (auto) Nucleated RBC % Differential Comment PT INR Specimen Type Sample Site pH Bicarbonate Actual POC Total CO2 Base Excess O2 Saturation O2 % ABG pCO2 ABG pO2 Ken Test Respiration Rate O2 Delivery Device Liter Flow EPAP IPAP Blood Gas Notified Whom Blood Gas Notified Time Sodium 155 H Potassium 3.9 Chloride 125 H Carbon Dioxide 26.0 Anion Gap 4 L BUN 41 H Creatinine 1.84 H Estim Creat Clear Calc 40.42 Est GFR (MDRD) Af Amer 47 L Est GFR (MDRD) Non-Af 39 L BUN/Creatinine Ratio 22.3 H Glucose 549 H* Serum Osmolality Lactic Acid Calcium 8.7 Troponin I Urine Color Urine Clarity Urine pH Ur Specific [place] Urine Protein Urine Glucose (UA) Urine Ketones Urine Occult Blood Urine Nitrite Urine Bilirubin Urine Urobilinogen Ur Leukocyte Esterase Urine RBC Urine WBC Ur Squamous Epith Cells Amorphous Sediment Urine Bacteria Urine Mucus Urine Osmolality Ur Random Sodium Urine Creatinine Acetone Level POC Glucose > 500 H* 437 H 02/06/19 02/06/19 02/06/19 18:06 19:13 20:13 WBC RBC Hgb Hct MCV MCH MCHC RDW Std Deviation RDW Coeff of [place] Plt Count MPV Immature Gran % (Auto) Neut % (Auto) Lymph % (Auto) [place] % (Auto) Eos % (Auto) Baso % (Auto) Absolute Neuts (auto) Absolute Lymphs (auto) Nucleated RBC % Differential Comment PT INR Specimen Type Sample Site pH Bicarbonate Actual POC Total CO2 Base Excess O2 Saturation O2 % ABG pCO2 ABG pO2 Ken Test Respiration Rate O2 Delivery Device Liter Flow EPAP IPAP Blood Gas Notified Whom Blood Gas Notified Time Sodium Potassium Chloride Carbon Dioxide Anion Gap BUN Creatinine Estim Creat Clear Calc Est GFR (MDRD) Af Amer Est GFR (MDRD) Non-Af BUN/Creatinine Ratio Glucose Serum Osmolality Lactic Acid Calcium Troponin I Urine Color Urine Clarity Urine pH Ur Specific [place] Urine Protein Urine Glucose (UA) Urine Ketones Urine Occult Blood Urine Nitrite Urine Bilirubin Urine Urobilinogen Ur Leukocyte Esterase Urine RBC Urine WBC Ur Squamous Epith Cells Amorphous Sediment Urine Bacteria Urine Mucus Urine Osmolality Ur Random Sodium Urine Creatinine Acetone Level POC Glucose 446 H 438 H 409 H 02/06/19 02/06/19 02/06/19 20:15 21:19 22:19 WBC RBC Hgb Hct MCV MCH MCHC RDW Std Deviation RDW Coeff of [place] Plt Count MPV Immature Gran % (Auto) Neut % (Auto) Lymph % (Auto) [place] % (Auto) Eos % (Auto) Baso % (Auto) Absolute Neuts (auto) Absolute Lymphs (auto) Nucleated RBC % Differential Comment PT INR Specimen Type Sample Site pH Bicarbonate Actual POC Total CO2 Base Excess O2 Saturation O2 % ABG pCO2 ABG pO2 Ken Test Respiration Rate O2 Delivery Device Liter Flow EPAP IPAP Blood Gas Notified Whom Blood Gas Notified Time Sodium 157 H Potassium 3.6 Chloride 127 H* Carbon Dioxide 26.0 Anion Gap 4 L BUN 37 H Creatinine 1.89 H Estim Creat Clear Calc 39.35 Est GFR (MDRD) Af Amer 45 L Est GFR (MDRD) Non-Af 38 L BUN/Creatinine Ratio 19.6 Glucose 453 H* Serum Osmolality Lactic Acid Calcium 9.0 Troponin I Urine Color Urine Clarity Urine pH Ur Specific [place] Urine Protein Urine Glucose (UA) Urine Ketones Urine Occult Blood Urine Nitrite Urine Bilirubin Urine Urobilinogen Ur Leukocyte Esterase Urine RBC Urine WBC Ur Squamous Epith Cells Amorphous Sediment Urine Bacteria Urine Mucus Urine Osmolality Ur Random Sodium Urine Creatinine Acetone Level POC Glucose 362 H 376 H 02/06/19 02/07/19 02/07/19 23:21 00:10 00:12 WBC RBC Hgb Hct MCV MCH MCHC RDW Std Deviation RDW Coeff of [place] Plt Count MPV Immature Gran % (Auto) Neut % (Auto) Lymph % (Auto) [place] % (Auto) Eos % (Auto) Baso % (Auto) Absolute Neuts (auto) Absolute Lymphs (auto) Nucleated RBC % Differential Comment PT INR Specimen Type Sample Site pH Bicarbonate Actual POC Total CO2 Base Excess O2 Saturation O2 % ABG pCO2 ABG pO2 Ken Test Respiration Rate O2 Delivery Device Liter Flow EPAP IPAP Blood Gas Notified Whom Blood Gas Notified Time Sodium 159 H Potassium 3.6 Chloride 130 H* Carbon Dioxide 25.0 Anion Gap 4 L BUN 33 H Creatinine 1.76 H Estim Creat Clear Calc 42.25 Est GFR (MDRD) Af Amer 49 L Est GFR (MDRD) Non-Af 41 L BUN/Creatinine Ratio 18.8 Glucose 314 H Serum Osmolality Lactic Acid Calcium 9.0 Troponin I Urine Color Urine Clarity Urine pH Ur Specific [place] Urine Protein Urine Glucose (UA) Urine Ketones Urine Occult Blood Urine Nitrite Urine Bilirubin Urine Urobilinogen Ur Leukocyte Esterase Urine RBC Urine WBC Ur Squamous Epith Cells Amorphous Sediment Urine Bacteria Urine Mucus Urine Osmolality Ur Random Sodium Urine Creatinine Acetone Level POC Glucose 305 H 260 H 02/07/19 02/07/19 02/07/19 01:36 02:12 03:09 WBC RBC Hgb Hct MCV MCH MCHC RDW Std Deviation RDW Coeff of [place] Plt Count MPV Immature Gran % (Auto) Neut % (Auto) Lymph % (Auto) [place] % (Auto) Eos % (Auto) Baso % (Auto) Absolute Neuts (auto) Absolute Lymphs (auto) Nucleated RBC % Differential Comment PT INR Specimen Type Sample Site pH Bicarbonate Actual POC Total CO2 Base Excess O2 Saturation O2 % ABG pCO2 ABG pO2 Ken Test Respiration Rate O2 Delivery Device Liter Flow EPAP IPAP Blood Gas Notified Whom Blood Gas Notified Time Sodium Potassium Chloride Carbon Dioxide Anion Gap BUN Creatinine Estim Creat Clear Calc Est GFR (MDRD) Af Amer Est GFR (MDRD) Non-Af BUN/Creatinine Ratio Glucose Serum Osmolality Lactic Acid Calcium Troponin I Urine Color Urine Clarity Urine pH Ur Specific [place] Urine Protein Urine Glucose (UA) Urine Ketones Urine Occult Blood Urine Nitrite Urine Bilirubin Urine Urobilinogen Ur Leukocyte Esterase Urine RBC Urine WBC Ur Squamous Epith Cells Amorphous Sediment Urine Bacteria Urine Mucus Urine Osmolality Ur Random Sodium Urine Creatinine Acetone Level POC Glucose 271 H 258 H 220 H 02/07/19 02/07/19 02/07/19 04:08 04:10 04:10 WBC 9.5 RBC 4.02 L Hgb 11.4 L Hct 36.8 L MCV 91.5 MCH 28.4 MCHC 31.0 L RDW Std Deviation 50.8 H RDW Coeff of [place] 15.1 H Plt Count 153 MPV 10.7 Immature Gran % (Auto) 0.800 Neut % (Auto) 90.0 H Lymph % (Auto) 3.0 L Phelps % (Auto) 5.9 Eos % (Auto) 0.1 Baso % (Auto) 0.2 Absolute Neuts (auto) 8.6 H Absolute Lymphs (auto) 0.29 L Nucleated RBC % 0 Differential Comment SCANNED PT INR Specimen Type Sample Site pH Bicarbonate Actual POC Total CO2 Base Excess O2 Saturation O2 % ABG pCO2 ABG pO2 Ken Test Respiration Rate O2 Delivery Device Liter Flow EPAP IPAP Blood Gas Notified Whom Blood Gas Notified Time Sodium 163 H* Potassium 3.5 Chloride 133 H* Carbon Dioxide 25.0 Anion Gap 5 BUN 29 H Creatinine 1.54 H Estim Creat Clear Calc 48.29 Est GFR (MDRD) Af Amer 58 L Est GFR (MDRD) Non-Af 48 L BUN/Creatinine Ratio 18.8 Glucose 227 H Serum Osmolality Lactic Acid Calcium 8.8 Troponin I Urine Color Urine Clarity Urine pH Ur Specific [place] Urine Protein Urine Glucose (UA) Urine Ketones Urine Occult Blood Urine Nitrite Urine Bilirubin Urine Urobilinogen Ur Leukocyte Esterase Urine RBC Urine WBC Ur Squamous Epith Cells Amorphous Sediment Urine Bacteria Urine Mucus Urine Osmolality Ur Random Sodium Urine Creatinine Acetone Level POC Glucose 209 H 02/07/19 02/07/19 02/07/19 04:15 05:06 06:06 WBC RBC Hgb Hct MCV MCH MCHC RDW Std Deviation RDW Coeff of [place] Plt Count MPV Immature Gran % (Auto) Neut % (Auto) Lymph % (Auto) Phelps % (Auto) Eos % (Auto) Baso % (Auto) Absolute Neuts (auto) Absolute Lymphs (auto) Nucleated RBC % Differential Comment PT 25.8 H INR 2.4 Specimen Type Sample Site pH Bicarbonate Actual POC Total CO2 Base Excess O2 Saturation O2 % ABG pCO2 ABG pO2 Ken Test Respiration Rate O2 Delivery Device Liter Flow EPAP IPAP Blood Gas Notified Whom Blood Gas Notified Time Sodium Potassium Chloride Carbon Dioxide Anion Gap BUN Creatinine Estim Creat Clear Calc Est GFR (MDRD) Af Amer Est GFR (MDRD) Non-Af BUN/Creatinine Ratio Glucose Serum Osmolality Lactic Acid Calcium Troponin I Urine Color Urine Clarity Urine pH Ur Specific Irving Urine Protein Urine Glucose (UA) Urine Ketones Urine Occult Blood Urine Nitrite Urine Bilirubin Urine Urobilinogen Ur Leukocyte Esterase Urine RBC Urine WBC Ur Squamous Epith Cells Amorphous Sediment Urine Bacteria Urine Mucus Urine Osmolality Ur Random Sodium Urine Creatinine Acetone Level POC Glucose 184 H 187 H 02/07/19 02/07/19 02/07/19 06:25 06:25 06:25 WBC RBC Hgb Hct MCV MCH MCHC RDW Std Deviation RDW Coeff of Aurora Plt Count MPV Immature Gran % (Auto) Neut % (Auto) Lymph % (Auto) Phelps % (Auto) Eos % (Auto) Baso % (Auto) Absolute Neuts (auto) Absolute Lymphs (auto) Nucleated RBC % Differential Comment PT INR Specimen Type Sample Site pH Bicarbonate Actual POC Total CO2 Base Excess O2 Saturation O2 % ABG pCO2 ABG pO2 Ken Test Respiration Rate O2 Delivery Device Liter Flow EPAP IPAP Blood Gas Notified Whom Blood Gas Notified Time Sodium Potassium Chloride Carbon Dioxide Anion Gap BUN Creatinine Estim Creat Clear Calc Est GFR (MDRD) Af Amer Est GFR (MDRD) Non-Af BUN/Creatinine Ratio Glucose Serum Osmolality Lactic Acid Calcium Troponin I Urine Color Urine Clarity Urine pH Ur Specific Irving Urine Protein Urine Glucose (UA) Urine Ketones Urine Occult Blood Urine Nitrite Urine Bilirubin Urine Urobilinogen Ur Leukocyte Esterase Urine RBC Urine WBC Ur Squamous Epith Cells Amorphous Sediment Urine Bacteria Urine Mucus Urine Osmolality Pending Ur Random Sodium Pending Urine Creatinine Pending Acetone Level POC Glucose 02/07/19 06:55 WBC RBC Hgb Hct MCV MCH MCHC RDW Std Deviation RDW Coeff of Aurora Plt Count MPV Immature Gran % (Auto) Neut % (Auto) Lymph % (Auto) Phelps % (Auto) Eos % (Auto) Baso % (Auto) Absolute Neuts (auto) Absolute Lymphs (auto) Nucleated RBC % Differential Comment PT INR Specimen Type Sample Site pH Bicarbonate Actual POC Total CO2 Base Excess O2 Saturation O2 % ABG pCO2 ABG pO2 Ken Test Respiration Rate O2 Delivery Device Liter Flow EPAP IPAP Blood Gas Notified Whom Blood Gas Notified Time Sodium Potassium Chloride Carbon Dioxide Anion Gap BUN Creatinine Estim Creat Clear Calc Est GFR (MDRD) Af Amer Est GFR (MDRD) Non-Af BUN/Creatinine Ratio Glucose Serum Osmolality Pending Lactic Acid Calcium Troponin I Urine Color Urine Clarity Urine pH Ur Specific Irving Urine Protein Urine Glucose (UA) Urine Ketones Urine Occult Blood Urine Nitrite Urine Bilirubin Urine Urobilinogen Ur Leukocyte Esterase Urine RBC Urine WBC Ur Squamous Epith Cells Amorphous Sediment Urine Bacteria Urine Mucus Urine Osmolality Ur Random Sodium Urine Creatinine Acetone Level POC Glucose Microbiology 02/06/19 11:00 Blood Culture (Wb) - Venous Blood Culture - Preliminary 02/06/19 08:50 Blood Culture (Wb) - Anticubital Right Blood Culture - Preliminary 02/05/19 13:30 Blood Culture (Wb) - Left Forearm Blood Culture - Preliminary 02/05/19 13:40 Blood Culture (Wb) - Right Wrist Bacteria Detection (PCR) - Preliminary Staphylococcus aureus 02/05/19 13:40 Blood Culture (Wb) - Right Wrist Blood Culture - Preliminary Medical Necessity - Tobacco Use Smoking Status: Unknown if ever smoked Tobacco Use: - - Unknown tobacco history-patient not able to provide Assessment/Plan All Active Problems Hyperosmolar coma due to secondary diabetes (Acute) Hypoglycemia (Resolved) Hypothermia (Resolved) Altered mental state (Acute) Acute osteomyelitis of metacarpal bone (Resolved) Osteomyelitis of toe of right foot (Resolved) Right 2nd toe suspected osteomyelitis (Resolved) Right 2nd toe gangrene (Resolved) RECOMMENDATIONS: 1. Increase D5W 2. Continue empiric vancomycin 3. Insulin drip per protocol 4. Obtain urine electrolytes and osmolalities 5. BiPAP breaks as tolerated 6. Consult nephrology IMPRESSIONS: 1. Hyperosmolar non-ketosis with coma/metabolic encephalopathy Patient presented with a blood glucose of over 1500. Patient has not been able to answer many questions at this time. Patient is on an insulin drip and appears to be improving per protocol. Patient will be at risk for cerebral edema, but initial CT scan showed atrophy only. ABGs have shown adequate respiration. Patient appears to be more spontaneous at this time, but is still not answering questions. 2. Staph aureus sepsis Patient is growing staph aureus from blood cultures repeatedly, so contaminant is unlikely. Patient has been placed on vancomycin. Blood pressures appear to be appropriate at this time. Patient does have some superficial skin wounds, but none of these appear to have fluctuance. 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 Unclear source of infection 3. Acute kidney injury secondary to #1/Hypernatremia/hyperchloremic metabolic acidosis Renal function has improved, but patient is having significant hyperchloremia and hypernatremia despite receiving only free water flushes. Patient is not having significant urinary output to suggest diabetes insipidus at this time. Urine electrolytes and osmolalities will be sent. Consult nephrology. Patient may still be hypovolemic, so continue with free water administration. 4. CAD/paroxysmal A. fib/chronic Coumadin therapy/PAD/chronic diastolic CHF Given need for antibiotics, patient's INR will need to be watched. Coumadin has been held for now. Reasonable to use SCDs for DVT prophylaxis. Will need to watch fluid status closely as patient may go into flash pulmonary edema given level of fluids. Patient continues to appear hypovolemic at this time. 5. Reported COPD versus pulmonary fibrosis/acute hypercarbic respiratory failure Unclear pulmonary history. Patient reportedly has COPD, but previous CT scan show her social think giving possible pulmonary fibrosis. Patient is on bronchodilators at this time. Patient does not appear to have purulent sputum, so we will hold off on any steroid therapy. Continue with bronchodilators only. Attempt to obtain further information. ABG does show non-anion gap metabolic acidosis with failure to compensate despite BiPAP therapy. This would constitute acute hypercarbic respiratory failure. Clinical suspicion for decreased mental status leading to failure to compensate. Patient has done well on increased BiPAP settings 6. Advanced age/hyperlipidemia/hypertension/history of osteomyelitis Complicates care, management, recovery and prognosis. Okay to continue with baseline medications, but will need to watch blood pressure closely given positive blood cultures. If positive blood cultures persist, echocardiogram for evaluation of endocarditis and possible MRI of the spine for discitis would be necessary. Need to clarify CODE STATUS once patient's family arrives. Patient will be a full code by default at this time. TIME: 39 minutes critical care time spent addressing patient's hyperosmolar non- ketosis with coma, possible staph sepsis, acute kidney injury, respiratory failure, review of all data and collaboration with care team (6 AM to 7:20 AM) Code Visit Procedures: 35971 Critial Care 1st Hr
[2019-02-07 07:26] LABS: Osmolality, Urine 518 mOsm/KG
[2019-02-07 07:29] LABS: Osmolality, Serum 337 mOsm/KG (280-301)
[2019-02-07 08:02] LABS: Urine Sodium 31 mmol/L (Not Establ.)
[2019-02-07 08:25] LABS: Bedside Glucose 222 mg/dL (70-110)
[2019-02-07 08:25] LABS: Bedside Glucose 202 mg/dL (70-110)
[2019-02-07 08:36] LABS: Anion Gap 4 (5-15); BUN 28 mg/dL (7-18); BUN/Creat Ratio 17.2 RATIO (10-20); Chloride 131 mmol/L (98-107); Creatinine, Serum 1.63 mg/dL (0.70-1.30); EST Glomerular Filtration Rate 45 mL/min (>60); Est Glom Filt Rate - Afr Amer 54 mL/min (>60); Estimated Creatinine Clearance 45.62 ml/min; Glucose 218 mg/dL (74-106); Potassium 3.3 mmol/L (3.5-5.1); Sodium Level 159 mmol/L (136-145)
--- NOTE | 2019-02-07 08:45 | PN_ITS ---
Patient Problems: Active and Suspected Problems Hyperosmolar coma due to secondary diabetes (Acute) Subjective: still confused. Vitals/I&O's: Vital Signs Temp Pulse Resp BP Pulse Ox 37.3 C H 120 H 29 H 121/59 H 96 02/07/19 08:00 02/07/19 08:00 02/07/19 08:00 02/07/19 08:00 02/07/19 08:00 Oxygen Flow Rate (L/min) 2 Oxygen Delivery Method Bi-pap Weight: 82.6 kg Body Mass Index (BMI) 24.5 Finger Stick Blood Glucose 202 Intake and Output for Last 24 Hours 02/05/19 02/06/19 02/07/19 23:59 23:59 23:59 Intake Total 4903.37 / 5053.37 3275.71 / 3350.71 1045.64 / 1045.64 Output Total 2700 / 2700 2575 / 2575 450 / 450 Balance 2203.37 / 2353.37 700.71 / 775.71 595.64 / 595.64 General: No apparent distress, Confused, - - on BiPAP HEENT: Atraumatic, Normocephalic, - - no icterus. Oral: Moist Mucosa, No Gingival or Mucosal Lesions/ Ulcerations Neck: No Nodes, Thyroid Normal Size and Texture Lungs: Clear to auscultation, Normal air movement, No rhonchi, No wheeze Cardiovascular: Irregular Rate, Tachycardic Abdomen: Bowel Sounds Present, Soft, Non Tender, Non-Distended Extremities: No edema, No Calf Tenderness Skin: No rashes, No breakdown, - - onchyomycosis Musculoskeletal: No Tenderness to Palpation of Joints or Extremities, No Muscle Wasting Neurological: - - no clonus. DTR 1/4 in LE Psych/Mental Status: Normal Affect, Appropriate Microbiology Past 72 Hours 02/06/19 11:00 Blood Culture (Wb) - Venous Blood Culture - Preliminary Gram Positive Cocci 02/06/19 08:50 Blood Culture (Wb) - Anticubital Right Blood Culture - Preliminary Gram Positive Cocci 02/05/19 13:40 Blood Culture (Wb) - Right Wrist Blood Culture - Preliminary Gram Positive Cocci 02/05/19 13:30 Blood Culture (Wb) - Left Forearm Bacteria Detection (PCR) - Final Staphylococcus aureus 02/05/19 13:30 Blood Culture (Wb) - Left Forearm Blood Culture - Preliminary Staphylococcus aureus Laboratory Results 02/06/19 01:01: POC Glucose > 500 H* 02/06/19 08:18: POC Glucose > 500 H* 02/06/19 08:50: Sodium 155 H, Potassium 4.6, Chloride 124 H, Carbon Dioxide 24.0, Anion Gap 7, BUN 46 H, Creatinine 1.94 H, Estim Creat Clear Calc 38.33, Est GFR (MDRD) Af Amer 44 L, Est GFR (MDRD) Non-Af 36 L, BUN/Creatinine Ratio 23.7 H, Glucose 592 H*, Calcium 8.7 02/06/19 08:58: POC Glucose > 500 H* 02/06/19 10:32: POC Glucose > 500 H* 02/06/19 11:25: POC Glucose > 500 H* 02/06/19 12:15: Sodium 155 H, Potassium 4.0, Chloride 125 H, Carbon Dioxide 26.0, Anion Gap 4 L, BUN 43 H, Creatinine 1.95 H, Estim Creat Clear Calc 38.14, Est GFR (MDRD) Af Amer 44 L, Est GFR (MDRD) Non-Af 36 L, BUN/Creatinine Ratio 22.1 H, Glucose 562 H*, Calcium 9.0 02/06/19 12:17: POC Glucose 455 H* 02/06/19 13:10: POC Glucose 463 H* 02/06/19 14:01: POC Glucose 500 H* 02/06/19 16:00: POC Glucose > 500 H* 02/06/19 16:10: Sodium 155 H, Potassium 3.9, Chloride 125 H, Carbon Dioxide 26.0, Anion Gap 4 L, BUN 41 H, Creatinine 1.84 H, Estim Creat Clear Calc 40.42, Est GFR (MDRD) Af Amer 47 L, Est GFR (MDRD) Non-Af 39 L, BUN/Creatinine Ratio 22.3 H, Glucose 549 H*, Calcium 8.7 02/06/19 17:09: POC Glucose 437 H 02/06/19 18:06: POC Glucose 446 H 02/06/19 19:13: POC Glucose 438 H 02/06/19 20:13: POC Glucose 409 H 02/06/19 20:15: Sodium 157 H, Potassium 3.6, Chloride 127 H*, Carbon Dioxide 26.0, Anion Gap 4 L, BUN 37 H, Creatinine 1.89 H, Estim Creat Clear Calc 39.35, Est GFR (MDRD) Af Amer 45 L, Est GFR (MDRD) Non-Af 38 L, BUN/Creatinine Ratio 19.6, Glucose 453 H*, Calcium 9.0 02/06/19 21:19: POC Glucose 362 H 02/06/19 22:19: POC Glucose 376 H 02/06/19 23:21: POC Glucose 305 H 02/07/19 00:10: Sodium 159 H, Potassium 3.6, Chloride 130 H*, Carbon Dioxide 25.0, Anion Gap 4 L, BUN 33 H, Creatinine 1.76 H, Estim Creat Clear Calc 42.25, Est GFR (MDRD) Af Amer 49 L, Est GFR (MDRD) Non-Af 41 L, BUN/Creatinine Ratio 18.8, Glucose 314 H, Calcium 9.0 02/07/19 00:12: POC Glucose 260 H 02/07/19 01:36: POC Glucose 271 H 02/07/19 02:12: POC Glucose 258 H 02/07/19 03:09: POC Glucose 220 H 02/07/19 04:08: POC Glucose 209 H 02/07/19 04:10: WBC 9.5, RBC 4.02 L, Hgb 11.4 L, Hct 36.8 L, MCV 91.5, MCH 28.4, MCHC 31.0 L, RDW Std Deviation 50.8 H, RDW Coeff of Aurora 15.1 H, Plt Count 153, MPV 10.7, Immature Gran % (Auto) 0.800, Neut % (Auto) 90.0 H, Lymph % (Auto) 3.0 L, Gem % (Auto) 5.9, Eos % (Auto) 0.1, Baso % (Auto) 0.2, Absolute Neuts (auto) 8.6 H, Absolute Lymphs (auto) 0.29 L, Nucleated RBC % 0, Differential Comment SCANNED 02/07/19 04:10: Sodium 163 H*, Potassium 3.5, Chloride 133 H*, Carbon Dioxide 25.0, Anion Gap 5, BUN 29 H, Creatinine 1.54 H, Estim Creat Clear Calc 48.29, Est GFR (MDRD) Af Amer 58 L, Est GFR (MDRD) Non-Af 48 L, BUN/Creatinine Ratio 18.8, Glucose 227 H, Calcium 8.8 02/07/19 04:15: PT 25.8 H, INR 2.4 02/07/19 05:06: POC Glucose 184 H 02/07/19 06:06: POC Glucose 187 H 02/07/19 06:25: Urine Osmolality 518 02/07/19 06:25: Urine Creatinine 78.30 02/07/19 06:25: Ur Random Sodium 31 02/07/19 06:55: Serum Osmolality 337 H 02/07/19 07:20: POC Glucose 222 H 02/07/19 08:05: Sodium 159 H, Potassium 3.3 L, Chloride 131 H*, Carbon Dioxide 24.0, Anion Gap 4 L, BUN 28 H, Creatinine 1.63 H, Estim Creat Clear Calc 45.62, Est GFR (MDRD) Af Amer 54 L, Est GFR (MDRD) Non-Af 45 L, BUN/Creatinine Ratio 17.2, Glucose 218 H, Calcium 9.0 02/07/19 08:10: POC Glucose 202 H Current Medications Atorvastatin Calcium (Lipitor) 40 mg PO QHS [facility] Last Admin: 02/06/19 21:48 Dose: Not Given Documented by: Chlorhexidine Gluconate () 1 each TOPICAL DAILY [facility] Last Admin: 02/07/19 03:12 Dose: 1 each Documented by: Clopidogrel Bisulfate (Plavix) 75 mg PO DAILY [facility] Last Admin: 02/06/19 10:35 Dose: Not Given Documented by: Dextrose (D50w Syringe) 0 gm IV X1 PRN; Protocol PRN Reason: HYPOGLYCEMIA Dronedarone (Multaq) 400 mg PO BID [facility] Last Admin: 02/06/19 21:48 Dose: Not Given Documented by: Famotidine (Pepcid) 40 mg PO DAILY [facility] Last Admin: 02/06/19 10:35 Dose: Not Given Documented by: [facility] Last Admin: 02/07/19 07:39 Dose: Not Given Documented by: Glucagon () 1 mg IM .X1 PRN PRN Reason: Hypoglycemia Heparin Sodium (Porcine) (Heparin Na) 5,000 unit SC Q12 [facility] Last Admin: 02/06/19 21:26 Dose: 5,000 unit Documented by: Insulin Human Lispro 100 unit/ (Sodium Chloride) 100 mls @ 8.47 mls/hr IV .[id number] HARESH; Protocol Last Titration: 02/07/19 08:00 Dose: 0.09 units/kg/hr, 8 mls/hr Documented by: Vancomycin IV Pharmacy to Dose (1,250 ea/ Sodium Chloride) 500 mls @ 250 mls/hr IV PRN PRN; Protocol Vancomycin HCl 1,250 mg/ (Sodium Chloride) 275 mls @ 167 mls/hr IV Q24H [facility] Last Infusion: 02/07/19 03:12 Dose: Infused Documented by: Dextrose () 1,000 mls @ 125 mls/hr IV .Q8H [facility] Last Infusion: 02/07/19 06:42 Dose: 125 mls/hr Documented by: Labetalol HCl (Trandate) 10 mg IV Q4H PRN PRN PRN Reason: SBP > 160 Last Admin: 02/06/19 01:40 Dose: 10 mg Documented by: Metoprolol Tartrate (Lopressor (Beta Hi)) 5 mg IV Q6 HARESH Nitroglycerin (Nitrostat) 0.4 mg SUBLINGUAL Q5M PRN PRN Reason: Chest Pain Ondansetron HCl (Zofran) 4 mg IV Q6H PRN PRN PRN Reason: NAUSEA/VOMITING Sodium Chloride () 5 - 15 ml IV UD PRN PRN Reason: SALINE FLUSH Last Admin: 02/06/19 06:51 Dose: 10 ml Documented by: Medical Necessity - Tobacco Use Smoking Status: Unknown if ever smoked Tobacco Use: - - Unknown tobacco history-patient not able to provide Assessment/Plan All Active Problems Hyperosmolar coma due to secondary diabetes (Acute) Hypoglycemia (Resolved) Hypothermia (Resolved) Altered mental state (Acute) Acute osteomyelitis of metacarpal bone (Resolved) Osteomyelitis of toe of right foot (Resolved) Right 2nd toe suspected osteomyelitis (Resolved) Right 2nd toe gangrene (Resolved) 1. Hyperosmolar, hyperglycemia non-ketotic state * mental status essentially unchanged from 02/06 * improved blood sugar with insulin gtt, however sodium increasing. * continue D5W * [facility] has consulted nephrology 2. Bacteremia * 08/07 positive. +MSSA * DC vanc, start cefazolin * repeat blood cultures, check echo 3. Sepsis * POA * 2/2 #2 * mgmt as above for #2 4. BRIDGETT * improving, appears back to baseline * likely prerenal * admission Cr 3.17, baseline 1.57 5. pafib w RVR * despite boluses of IV metoprolol, may need to consider diltiazem gtt * on dronedarone * warfarin held given encephalopathy, may need to initiate enoxaparin, but hold off for now in case needs central line. check INR. 6. VTE proph: SQ heparin Code Visit Inpatient E&M: 06152 Subs Hosp L3
--- NOTE | 2019-02-07 08:59 | EKG12_ITS ---
Test Reason : ARRYTHMIA Blood Pressure : / mmHG Vent. Rate : 107 BPM Atrial Rate : 119 BPM P-R Int : 188 ms QRS Dur : 082 ms QT Int : 302 ms P-R-T Axes : 077 -18 102 degrees QTc Int : 403 ms Sinus tachycardia with frequent Premature ventricular complexes and Fusion complexes Septal infarct , age undetermined Abnormal ECG Confirmed by OMAR BUCHANAN, RICCARDO ([id number]), business editor HUI ERVIN ([id number]) on 03/02/2019 11:19:30 AM Referred By: JOSE J Confirmed By:RICCARDO NELSON MD
--- NOTE | 2019-02-07 09:07 | ECHOCS_ITS ---
Reason For Study: BACTEREMIA Procedure This was a 2D Doppler, Color Flow transthoracic echocardiogram. Technically difficult - pt on BiPAP. Exam performed portable in ICU/CCU. Left Ventricle Normal size and thickness. The estimated ejection fraction is 65 %. Stage 2 diastolic dysfunction. No regional wall motion abnormalities noted. Right Ventricle Normal size and thickness. Normal systolic function. Atria Normal left atrium. Normal right atrium. Normal atrial septum. Mitral Valve The mitral valve is structurally normal. No prolapse or stenosis seen. Tricuspid Valve Normal tricuspid valve. Trivial tricuspid valve insufficiency. Right ventricular systolic pressure estimated to be 29 mmHg. Aortic Valve Normal aortic valve. Trisinus/trileaflet aortic valve. Pulmonic Valve Normal pulmonic valve. Great Vessels Normal aortic root. Normal arch. Normal inferior vena cava. Inferior vena cava collapse with sniff. Pericardium/Pleural No pericardial effusion. Medication Diluted definity 3.0ml given slow IV push to enhance endocardial definition. MMode/2D Measurements & Calculations LVIDd: 4.2 cm IVSd: 1.3 cm Ao root diam: 3.3 cm LVIDs: 2.5 cm LVPWd: 1.3 cm FS: 38.7 % LAV(MOD-bp): 48.8 ml LVAd ap4: 30.6 cm2 SV(MOD-sp4): 64.7 ml LAV(MOD-bp) Indexed: 23.8 ml/m2 EDV(MOD-sp4): 99.1 ml LAV(MOD-sp2): 49.8 ml EDV(sp4-el): 104.1 ml LAV(MOD-sp4): 44.3 ml LVAs ap4: 16.6 cm2 ESV(MOD-sp4): 34.4 ml ESV(sp4-el): 36.3 ml EF(MOD-sp4): 65.2 % EF(sp4-el): 65.1 % SV(sp4-el): 67.8 ml LA A4 area: 18.4 cm2 LA dimension(2D): 3.4 cm RA A4 area: 15.0 cm2 Time Measurements MV dec time: 0.38 sec Doppler Measurements & Calculations MV E max pepito: 59.4 cm/sec Lat Peak E' Pepito: 5.7 cm/sec Med Peak E' Pepito: 3.8 cm/sec MV A max pepito: 52.0 cm/sec E/E' lat: 10.3 E/E' med: 15.6 MV E/A: 1.1 Ao V2 max: 158.4 cm/sec LV V1 max: 124.8 cm/sec PA V2 max: 96.1 cm/sec Ao max P.1 mmHg LV V1 max P.2 mmHg TR max pepito: 245.0 cm/sec TR max P.1 mmHg Interpretation Summary The estimated ejection fraction is 65 %. Stage 2 diastolic dysfunction. Trivial tricuspid valve insufficiency. Right ventricular systolic pressure estimated to be 29 mmHg. There is no comparison study available. Ordering Physician: Matthias Mcclain Referring Physician: SHANDRA JENKINS Performed By: Desire Hi, ONEL, RVT
--- NOTE | 2019-02-07 09:16 | CM.UR ---
This RN participated in interdisciplinary rounds this am. No family present during rounds. Patient not alert enough to participate in rounds. Remains on insulin gtt. Had 2 hour break from bipap last night where he was placed on 2 liters oxygen however RR continued to increase so placed back on bipap. In afib, rate controlled. Will repeat blood cultures tomorrow. Santa Darby RN, [facility].
[2019-02-07] MEDS: Heparin Injection (Vial) 5,000 UNIT/ML VIAL 5000 UNIT SC ×2 (09:47→22:13)
[2019-02-07] MEDS: 0.9% NaCl Peripheral Flush Adult/Peds IV ×2 (09:47→17:06)
[2019-02-07] MEDS: Cefazolin 1 GM/50 ML BAG IV ×3 (09:57→22:13)
[2019-02-07 10:11] LABS: Bedside Glucose 206 mg/dL (70-110)
[2019-02-07 10:11] LABS: Bedside Glucose 183 mg/dL (70-110)
[2019-02-07] MEDS: Potassium Chloride 10mEq/100mL 10 MEQ/100 ML IV.SOLN. 100 MEQ IV BOLUS ×7 (10:41→23:05)
[2019-02-07] MEDS: Metoprolol Tartrate 5 MG/5 ML Vial IV ×3 (11:03→23:04)
[2019-02-07 11:16] LABS: Bedside Glucose 218 mg/dL (70-110)
[2019-02-07 12:10] LABS: Bedside Glucose 131 mg/dL (70-110)
[2019-02-07 12:28] LABS: Anion Gap 5 (5-15); BUN 28 mg/dL (7-18); Calcium,Total 8.8 mg/dL (8.5-10.1); Chloride 132 mmol/L (98-107); Creatinine, Serum 1.75 mg/dL (0.70-1.30); EST Glomerular Filtration Rate 41 mL/min (>60); Est Glom Filt Rate - Afr Amer 50 mL/min (>60); Glucose 130 mg/dL (74-106); Potassium 3.3 mmol/L (3.5-5.1); Sodium Level 161 mmol/L (136-145)
[2019-02-07 15:01] LABS: Bedside Glucose 124 mg/dL (70-110)
[2019-02-07 15:01] LABS: Bedside Glucose 121 mg/dL (70-110)
[2019-02-07 16:29] LABS: Magnesium 2.1 mg/dL (1.6-2.6)
[2019-02-07 16:56] LABS: Anion Gap 4 (5-15); BUN 27 mg/dL (7-18); BUN/Creat Ratio 15.3 RATIO (10-20); Creatinine, Serum 1.77 mg/dL (0.70-1.30); EST Glomerular Filtration Rate 41 mL/min (>60); Est Glom Filt Rate - Afr Amer 49 mL/min (>60); Estimated Creatinine Clearance 42.02 ml/min; Glucose 132 mg/dL (74-106); Potassium 3.5 mmol/L (3.5-5.1); Sodium Level 157 mmol/L (136-145)
[2019-02-07 16:59] LABS: Chloride 129 mmol/L (98-107)
--- NOTE | 2019-02-07 17:14 | PCM.CONS.R ---
Problem List (1) Hypernatremia Status: Acute Consultation - Renal PCP/ Referring MD: Requesting physician: [] Primary care physician: Anthony Petersen MD - History of Present Illness History of Present Illness: The patient is a 69 year old M PMH of DM , HTN, CKD and HPLD. Pt was brought in for change in mental statsu Pt was found to have hyperglycemia of > 1500, hyponatremia 129, BRIDGETT on CKD with Cr up to 3.17 mg/dL. Pt also was found to have bacteremia Pt was admitted to ICU. Pt was placed on insulin drip . Pt received 4 L of NS on 02/05 Pt then developed hypernatremia and patient was given 3 L of 1/2 NsD5W. Na level continued to rise. So patient was given 2 L of D5W . Na level remains elevated. Renal team was consulted for to help managing hypernatremia in patient with BRIDGETT Kidney function improved with IV volume expansion. Cr today 1.75 mg/dL Pt is non oliguric. Pt is hemodynamically stable. On BiPAP ROS: Pt is confused. Pt open his eyes by calling his name but does not follow commands ROS is not obtainable [] - Allergies Allergies: Allergies mushroom Allergy (Verified 01/12/17 23:26) Unknown - Current Medications Current Medications: Current Medications Atorvastatin Calcium (Lipitor) 40 mg PO QHS [facility] Last Admin: 02/06/19 21:48 Dose: Not Given Documented by: Chlorhexidine Gluconate () 1 each TOPICAL DAILY [facility] Last Admin: 02/07/19 03:12 Dose: 1 each Documented by: Clopidogrel Bisulfate (Plavix) 75 mg PO DAILY [facility] Last Admin: 02/07/19 09:47 Dose: Not Given Documented by: Dextrose (D50w Syringe) 0 gm IV X1 PRN; Protocol PRN Reason: HYPOGLYCEMIA Dronedarone (Multaq) 400 mg PO BID [facility] Last Admin: 02/07/19 09:47 Dose: Not Given Documented by: Famotidine (Pepcid) 40 mg PO DAILY [facility] Last Admin: 02/07/19 09:47 Dose: Not Given Documented by: Gabapentin (Neurontin) 300 mg PO BIDCM [facility] Last Admin: 02/07/19 16:22 Dose: Not Given Documented by: Glucagon () 1 mg IM .X1 PRN PRN Reason: Hypoglycemia Heparin Sodium (Porcine) (Heparin Na) 5,000 unit SC Q12 HARESH Last Admin: 02/07/19 09:47 Dose: 5,000 unit Documented by: Insulin Human Lispro 100 unit/ (Sodium Chloride) 100 mls @ 8.47 mls/hr IV .[id number] HARESH; Protocol Last Titration: 02/07/19 17:00 Dose: 0.07 units/kg/hr, 6 mls/hr Documented by: Dextrose () 1,000 mls @ 125 mls/hr IV .Q8H HARESH Last Infusion: 02/07/19 12:39 Dose: 125 mls/hr Documented by: Cefazolin Sodium () 1 gm in 50 mls @ 100 mls/hr IV Q8 HARESH Last Infusion: 02/07/19 15:37 Dose: Infused Documented by: Labetalol HCl (Trandate) 10 mg IV Q4H PRN PRN PRN Reason: SBP > 160 Last Admin: 02/06/19 01:40 Dose: 10 mg Documented by: Metoprolol Tartrate (Lopressor (Beta Hi)) 5 mg IV Q6 HARESH Last Admin: 02/07/19 17:06 Dose: 5 mg Documented by: Nitroglycerin (Nitrostat) 0.4 mg SUBLINGUAL Q5M PRN PRN Reason: Chest Pain Ondansetron HCl (Zofran) 4 mg IV Q6H PRN PRN PRN Reason: NAUSEA/VOMITING Sodium Chloride () 5 - 15 ml IV UD PRN PRN Reason: SALINE FLUSH Last Admin: 02/07/19 17:06 Dose: 10 ml Documented by: - Past Medical History Past Medical History (Chronic Problems): Chronic Problems HTN (hypertension) (Chronic) Obesity (BMI 30-39.9) (Chronic) Hyperlipidemia (Chronic) Chronic back pain (Chronic) Chronic 2nd toe ulcer (Chronic) Chronic renal disease, stage III (Chronic) Coronary artery disease (Chronic) Status post stents Diabetic peripheral neuropathy (Chronic) Type II diabetes mellitus (Chronic) not adequately controlled, HGBA1C is 8 Paroxysmal atrial fibrillation (Chronic) - Past Surgical History Surgical History: noncontributory - Social History Smoking Status: Unknown if ever smoked - Family History Maternal History Items: Heart Disease Paternal History Items: Diabetes, Heart Disease Patient Problems: Active and Suspected Problems Hyperosmolar coma due to secondary diabetes (Acute) Hypernatremia (Acute) - Physical Exam General: No apparent distress, Confused HEENT: Atraumatic Oral: Dry Mucosa Neck: Supple, No JVD Lungs: Clear to auscultation, Normal air movement, No rhonchi, No wheeze Cardiovascular: Regular Rhythm, Normal S1, Normal S2, Tachycardic, - Abdomen: Bowel Sounds Present, Soft, Non Tender, Non-Distended Extremities: No clubbing, No cyanosis, No edema Skin: No rashes Lymphatic: No Cervical, Supraclavicular, or Inguinal Adenopathy Comment: tyler cath in placed. Vital Signs Temp Pulse Resp BP Pulse Ox 98.9 F 130 H 22 H 150/82 H 97 02/07/19 16:00 02/07/19 17:06 02/07/19 17:00 02/07/19 17:06 02/07/19 17:00 Oxygen Flow Rate (L/min) 2 Oxygen Delivery Method Bi-pap Weight: 82.6 kg Body Mass Index (BMI) 24.5 Finger Stick Blood Glucose 140 Intake and Output for Last 24 Hours 02/05/19 02/06/19 02/07/19 23:59 23:59 23:59 Intake Total 4903.37 / 5053.37 3275.71 / 3350.71 2299.89 / 2299.89 Output Total 2700 / 2700 2575 / 2575 650 / 650 Balance 2203.37 / 2353.37 700.71 / 775.71 1649.89 / 1649.89 Microbiology Past 72 Hours 02/06/19 11:00 Blood Culture - Preliminary Blood Culture (Wb) - Venous Gram Positive Cocci 02/06/19 08:50 Blood Culture - Preliminary Blood Culture (Wb) - Anticubital Right Gram Positive Cocci 02/05/19 13:40 Blood Culture - Preliminary Blood Culture (Wb) - Right Wrist Gram Positive Cocci 02/05/19 13:30 Bacteria Detection (PCR) - Final Blood Culture (Wb) - Left Forearm Staphylococcus aureus Blood Culture - Preliminary Staphylococcus aureus Laboratory Tests Past 24 Hrs 02/06/19 02/07/19 02/07/19 20:15 00:10 04:10 WBC 9.5 RBC 4.02 L Hgb 11.4 L Hct 36.8 L MCV 91.5 MCH 28.4 MCHC 31.0 L RDW Std Deviation 50.8 H RDW Coeff of [place] 15.1 H Plt Count 153 MPV 10.7 Immature Gran % (Auto) 0.800 Neut % (Auto) 90.0 H Lymph % (Auto) 3.0 L Carbon % (Auto) 5.9 Eos % (Auto) 0.1 Baso % (Auto) 0.2 Absolute Neuts (auto) 8.6 H Absolute Lymphs (auto) 0.29 L Nucleated RBC % 0 Differential Comment SCANNED PT INR Sodium 157 H 159 H Potassium 3.6 3.6 Chloride 127 H* 130 H* Carbon Dioxide 26.0 25.0 Anion Gap 4 L 4 L BUN 37 H 33 H Creatinine 1.89 H 1.76 H Estim Creat Clear Calc 39.35 42.25 Est GFR (MDRD) Af Amer 45 L 49 L Est GFR (MDRD) Non-Af 38 L 41 L BUN/Creatinine Ratio 19.6 18.8 Glucose 453 H* 314 H Serum Osmolality Calcium 9.0 9.0 Magnesium Urine Osmolality Ur Random Sodium Urine Creatinine 02/07/19 02/07/19 02/07/19 04:10 04:15 06:25 WBC RBC Hgb Hct MCV MCH MCHC RDW Std Deviation RDW Coeff of [place] Plt Count MPV Immature Gran % (Auto) Neut % (Auto) Lymph % (Auto) Carbon % (Auto) Eos % (Auto) Baso % (Auto) Absolute Neuts (auto) Absolute Lymphs (auto) Nucleated RBC % Differential Comment PT 25.8 H INR 2.4 Sodium 163 H* Potassium 3.5 Chloride 133 H* Carbon Dioxide 25.0 Anion Gap 5 BUN 29 H Creatinine 1.54 H Estim Creat Clear Calc 48.29 Est GFR (MDRD) Af Amer 58 L Est GFR (MDRD) Non-Af 48 L BUN/Creatinine Ratio 18.8 Glucose 227 H Serum Osmolality Calcium 8.8 Magnesium Urine Osmolality 518 Ur Random Sodium Urine Creatinine 02/07/19 02/07/19 02/07/19 06:25 06:25 06:55 WBC RBC Hgb Hct MCV MCH MCHC RDW Std Deviation RDW Coeff of [place] Plt Count MPV Immature Gran % (Auto) Neut % (Auto) Lymph % (Auto) Carbon % (Auto) Eos % (Auto) Baso % (Auto) Absolute Neuts (auto) Absolute Lymphs (auto) Nucleated RBC % Differential Comment PT INR Sodium Potassium Chloride Carbon Dioxide Anion Gap BUN Creatinine Estim Creat Clear Calc Est GFR (MDRD) Af Amer Est GFR (MDRD) Non-Af BUN/Creatinine Ratio Glucose Serum Osmolality 337 H Calcium Magnesium Urine Osmolality Ur Random Sodium 31 Urine Creatinine 78.30 02/07/19 02/07/19 02/07/19 08:05 12:00 16:11 WBC RBC Hgb Hct MCV MCH MCHC RDW Std Deviation RDW Coeff of [place] Plt Count MPV Immature Gran % (Auto) Neut % (Auto) Lymph % (Auto) Carbon % (Auto) Eos % (Auto) Baso % (Auto) Absolute Neuts (auto) Absolute Lymphs (auto) Nucleated RBC % Differential Comment PT INR Sodium 159 H 161 H* Potassium 3.3 L 3.3 L Chloride 131 H* 132 H* Carbon Dioxide 24.0 24.0 Anion Gap 4 L 5 BUN 28 H 28 H Creatinine 1.63 H 1.75 H Estim Creat Clear Calc 45.62 42.50 Est GFR (MDRD) Af Amer 54 L 50 L Est GFR (MDRD) Non-Af 45 L 41 L BUN/Creatinine Ratio 17.2 16.0 Glucose 218 H 130 H Serum Osmolality Calcium 9.0 8.8 Magnesium 2.1 Urine Osmolality Ur Random Sodium Urine Creatinine 02/07/19 16:15 WBC RBC Hgb Hct MCV MCH MCHC RDW Std Deviation RDW Coeff of [place] Plt Count MPV Immature Gran % (Auto) Neut % (Auto) Lymph % (Auto) Carbon % (Auto) Eos % (Auto) Baso % (Auto) Absolute Neuts (auto) Absolute Lymphs (auto) Nucleated RBC % Differential Comment PT INR Sodium 157 H Potassium 3.5 Chloride 129 H* Carbon Dioxide 24.0 Anion Gap 4 L BUN 27 H Creatinine 1.77 H Estim Creat Clear Calc 42.02 Est GFR (MDRD) Af Amer 49 L Est GFR (MDRD) Non-Af 41 L BUN/Creatinine Ratio 15.3 Glucose 132 H Serum Osmolality Calcium 9.0 Magnesium Urine Osmolality Ur Random Sodium Urine Creatinine POC Glucose 02/07/19 02/07/19 02/07/19 13:58 13:04 12:00 POC Glucose 121 H 124 H 131 H 02/07/19 02/07/19 02/07/19 10:59 10:03 09:06 POC Glucose 218 H 206 H 183 H 02/07/19 02/07/19 02/07/19 08:10 07:20 06:06 POC Glucose 202 H 222 H 187 H 02/07/19 02/07/19 02/07/19 05:06 04:08 03:09 POC Glucose 184 H 209 H 220 H 02/07/19 02/07/19 02/07/19 02:12 01:36 00:12 POC Glucose 258 H 271 H 260 H 02/06/19 02/06/19 02/06/19 23:21 22:19 21:19 POC Glucose 305 H 376 H 362 H 02/06/19 02/06/19 02/06/19 20:13 19:13 18:06 POC Glucose 409 H 438 H 446 H 02/06/19 17:09 POC Glucose 437 H Assessment/Plan All Active Problems Hyperosmolar coma due to secondary diabetes (Acute) Hypernatremia (Acute) Hypoglycemia (Resolved) Hypothermia (Resolved) Altered mental state (Acute) Acute osteomyelitis of metacarpal bone (Resolved) Osteomyelitis of toe of right foot (Resolved) Right 2nd toe suspected osteomyelitis (Resolved) Right 2nd toe gangrene (Resolved) 1- Hypernatremia due to hyperglycemia correction. this is from osmotic shift of water from extra to intracellular and also loss of electrolytes free water in urine as excess glucose is excreted . Elderly patient is at low risk for cerebral edema with rapid correction of hyperglycemia . however, elderly patient is at risk for OSD with hypertonicity from either hyperglycemia or hypernatremia. therefor, Na level should be corrected rapidly. D5W should be given in dose of 3-6 ml/kg/hour. once the Na level has reached 145 , D5W infusion rate should be reduced to 1 ml/kg/hour until the Na is 140 mEq/L. the goal is to lower Na level 1-2 mEq/L every hour Pt is currently on D5W 125 cc / hour. Na correction rate is appropriate for the last 4 hours. No need for APPLICATION ARCHITECT MANAGER Continue to check Na level Q 2-3 hours along with Glucose level 2- BRIDGETT on CKD . likely prerenal from hyperglycemia induced osmotic diuresis Cr peaked at 3.1 . Cr improved to 1.7 mg/dl which is might be his baseline Nonoliguric Keep MAP > 65 3- Hyperglycemic non ketotic hyperosmolar status Pt presented with BS > 1500. improved with IVF and insulin Continue to monitor Glucose level while on D5W 4- Bacteremia: BC grew staph . Abx as per the primary service Keep Vancomycin level 15-20 Thank you for allowing me to participate in Mr. Mandeep cody Please call if any question at [phone] Maxine Harris MD
[2019-02-07 17:21] LABS: Bedside Glucose 140 mg/dL (70-110)
[2019-02-07 17:21] LABS: Bedside Glucose 107 mg/dL (70-110)
[2019-02-07 17:21] LABS: Bedside Glucose 121 mg/dL (70-110)
[2019-02-07 18:13] LABS: Sodium Level 155 mmol/L (136-145)
[2019-02-07 19:01] LABS: Bedside Glucose 129 mg/dL (70-110)
[2019-02-07 19:01] LABS: Bedside Glucose 128 mg/dL (70-110)
[2019-02-07 20:05] LABS: Bedside Glucose 125 mg/dL (70-110)
[2019-02-07 20:14] LABS: Anion Gap 5 (5-15); BUN 25 mg/dL (7-18); BUN/Creat Ratio 14.2 RATIO (10-20); Calcium,Total 8.9 mg/dL (8.5-10.1); Chloride 126 mmol/L (98-107); Creatinine, Serum 1.76 mg/dL (0.70-1.30); EST Glomerular Filtration Rate 41 mL/min (>60); Est Glom Filt Rate - Afr Amer 49 mL/min (>60); Estimated Creatinine Clearance 42.25 ml/min; Glucose 213 mg/dL (74-106); Potassium 3.1 mmol/L (3.5-5.1); Sodium Level 153 mmol/L (136-145)
[2019-02-07 22:11] LABS: Bedside Glucose 133 mg/dL (70-110)
[2019-02-07 22:28] LABS: Sodium Level 155 mmol/L (136-145)
[2019-02-07 23:01] LABS: Bedside Glucose 140 mg/dL (70-110)
[2019-02-07 23:11] LABS: Bedside Glucose 148 mg/dL (70-110)
[2019-02-08] VITALS (31 sets, daily range): BP systolic 102–165; BP diastolic 58–105; PULSE 95–135; RESP 14–40; TEMP 36.8–37.7; O2SAT 96–100
[2019-02-08 00:21] LABS: Bedside Glucose 141 mg/dL (70-110)
[2019-02-08 00:37] LABS: Anion Gap 6 (5-15); BUN 25 mg/dL (7-18); BUN/Creat Ratio 13.7 RATIO (10-20); Calcium,Total 8.8 mg/dL (8.5-10.1); Chloride 124 mmol/L (98-107); Creatinine, Serum 1.82 mg/dL (0.70-1.30); EST Glomerular Filtration Rate 39 mL/min (>60); Est Glom Filt Rate - Afr Amer 48 mL/min (>60); Estimated Creatinine Clearance 40.86 ml/min; Glucose 181 mg/dL (74-106); Potassium 3.9 mmol/L (3.5-5.1); Sodium Level 152 mmol/L (136-145)
[2019-02-08] MEDS: Potassium Chloride 10mEq/100mL 10 MEQ/100 ML IV.SOLN. 100 MEQ IV BOLUS ×13 (01:00→20:09)
[2019-02-08 01:10] LABS: Bedside Glucose 148 mg/dL (70-110)
[2019-02-08 02:16] LABS: Bedside Glucose 159 mg/dL (70-110)
[2019-02-08 02:27] LABS: Sodium Level 152 mmol/L (136-145)
[2019-02-08 03:06] LABS: Bedside Glucose 136 mg/dL (70-110)
[2019-02-08] MEDS: Cefazolin 1 GM/50 ML BAG IV ×3 (05:01→21:38)
[2019-02-08] MEDS: Metoprolol Tartrate 5 MG/5 ML Vial IV ×3 (05:01→18:04)
[2019-02-08 06:40] LABS: Prothrombin Time (Protime)PT. 22.6 SECONDS (11.7-14.9)
[2019-02-08 06:42] LABS: Hematocrit 36.4 % (40-54); Hemoglobin 11.5 g/dL (13.0-16.5); Mean Corp Hgb Conc 31.6 g/dL (32-36); Mean Corpuscular Hgb 28.6 pg (27.0-32.0); Mean Corpuscular Volume 90.5 fL (80-94); Mean Platelet Vol. 11.1 fl (6.2-12.0); POSITIVE DIFFERENTIAL YES; POSITIVE MORPHOLOGY YES; Platelet Count 121 K/mm3 (150-450); RBC Distribution Width CV 14.7 % (11.6-14.6); RBC Distribution Width SD 49.2 fl (35.1-43.9); Red Blood Count 4.02 M/mm3 (4.6-6.2); White Blood Count 7.5 K/mm3 (4.4-11.0)
[2019-02-08 06:43] LABS: Absolute Lymphocyte Count 0.54 X10^3/uL (0.83-4.51); Absolute Neutrophil Count 6.4 X10^3/uL (2.0-7.7); Basophil# 0.01 X10^3/uL; Basophil% 0.1 % (0-1); Differential Indicated SCAN CRITERIA MET; Lymphocyte # 0.54 X10^3/ul (4.0); Lymphocyte % 7.2 % (19-41); Monocyte# 0.48 X10^3/uL; Monocyte% 6.4 % (0-10); Neutrophil % 85.9 % (47-70)
[2019-02-08 07:01] LABS: Glucose 143 mg/dL (74-106)
[2019-02-08 07:04] LABS: BUN 26 mg/dL (7-18)
[2019-02-08 07:05] LABS: Anion Gap 7 (5-15); Calcium,Total 8.7 mg/dL (8.5-10.1); Chloride 125 mmol/L (98-107); Creatinine, Serum 1.63 mg/dL (0.70-1.30); EST Glomerular Filtration Rate 45 mL/min (>60); Est Glom Filt Rate - Afr Amer 55 mL/min (>60); Estimated Creatinine Clearance 45.62 ml/min; Potassium 3.8 mmol/L (3.5-5.1); Sodium Level 154 mmol/L (136-145)
--- NOTE | 2019-02-08 07:49 | PCM.PN.INT ---
Subjective: Patient did okay overnight. [facility] No bleeding complications have been reported. Patient continues to have more spontaneous movement, but is not reliably following commands. Nursing reports significant discomfort associated with rolling and yelling out. Patient with no issues when lying flat. General: Confused, Disoriented, Lethargic - Improving, Non-Cooperative HEENT: Atraumatic, PERRLA, EOMI, Normocephalic, - - No scleral icterus or injection noted Oral: Moist Mucosa, No Gingival or Mucosal Lesions/ Ulcerations Neck: Supple, No JVD, No Nodes, Trachea Midline Lungs: No rhonchi, No wheeze, No rales, Diminished Cardiovascular: Normal S1, Normal S2, No murmurs, Irregular Rate, No rub noted, No Gallop, Tachycardic Abdomen: Bowel Sounds Present, Soft, Non Tender, Non-Distended, Obese Extremities: No clubbing, No cyanosis, No edema Skin: - - No significant change from previous Musculoskeletal: No Tenderness to Palpation of Joints or Extremities Lymphatic: No Cervical, Supraclavicular, or Inguinal Adenopathy Neurological: - - Spontaneous movement bilaterally. Opens eyes to voice, but not following commands. Sensation is intact. Psych/Mental Status: Flat Affect Vital Signs Temp Pulse Resp BP Pulse Ox 37.0 C 107 H 21 H 148/67 H 99 02/08/19 04:00 02/08/19 06:00 02/08/19 06:00 02/08/19 06:00 02/08/19 06:00 Oxygen Flow Rate (L/min) 2 Oxygen Delivery Method Bi-pap Weight: 84.8 kg Body Mass Index (BMI) 24.5 Finger Stick Blood Glucose 140 Intake and Output for Last 24 Hours 02/06/19 02/07/19 02/08/19 23:59 23:59 23:59 Intake Total 3275.71 / 3350.71 3500.16 / 3597.73 1939.26 / 1939.26 Output Total 2575 / 2575 900 / 1400 950 / 950 Balance 700.71 / 775.71 2600.16 / 2197.73 989.26 / 989.26 Labs (Last 48 Hours) 02/06/19 02/06/19 02/06/19 01:01 07:50 08:18 WBC RBC Hgb Hct MCV MCH MCHC RDW Std Deviation RDW Coeff of [place] Plt Count MPV Immature Gran % (Auto) Neut % (Auto) Lymph % (Auto) [place] % (Auto) Eos % (Auto) Baso % (Auto) Absolute Neuts (auto) Absolute Lymphs (auto) Nucleated RBC % Differential Comment PT INR Specimen Type ART Sample Site R Radial pH 7.29 L Bicarbonate Actual 21.5 L POC Total CO2 23 Base Excess -5 L O2 Saturation 92 L O2 % 21 ABG pCO2 44.7 ABG pO2 71 L Ken Test POS Respiration Rate 14 O2 Delivery Device Bi / C PAP EPAP 5 IPAP 10 Blood Gas Notified Whom ICU MD Blood Gas Notified Time 746 Sodium Potassium Chloride Carbon Dioxide Anion Gap BUN Creatinine Estim Creat Clear Calc Est GFR (MDRD) Af Amer Est GFR (MDRD) Non-Af BUN/Creatinine Ratio Glucose Serum Osmolality Calcium Magnesium Urine Osmolality Ur Random Sodium Urine Creatinine POC Glucose > 500 H* > 500 H* 02/06/19 02/06/19 02/06/19 08:50 08:58 10:32 WBC RBC Hgb Hct MCV MCH MCHC RDW Std Deviation RDW Coeff of [place] Plt Count MPV Immature Gran % (Auto) Neut % (Auto) Lymph % (Auto) [place] % (Auto) Eos % (Auto) Baso % (Auto) Absolute Neuts (auto) Absolute Lymphs (auto) Nucleated RBC % Differential Comment PT INR Specimen Type Sample Site pH Bicarbonate Actual POC Total CO2 Base Excess O2 Saturation O2 % ABG pCO2 ABG pO2 Ken Test Respiration Rate O2 Delivery Device EPAP IPAP Blood Gas Notified Whom Blood Gas Notified Time Sodium 155 H Potassium 4.6 Chloride 124 H Carbon Dioxide 24.0 Anion Gap 7 BUN 46 H Creatinine 1.94 H Estim Creat Clear Calc 38.33 Est GFR (MDRD) Af Amer 44 L Est GFR (MDRD) Non-Af 36 L BUN/Creatinine Ratio 23.7 H Glucose 592 H* Serum Osmolality Calcium 8.7 Magnesium Urine Osmolality Ur Random Sodium Urine Creatinine POC Glucose > 500 H* > 500 H* 02/06/19 02/06/19 02/06/19 11:25 12:15 12:17 WBC RBC Hgb Hct MCV MCH MCHC RDW Std Deviation RDW Coeff of [place] Plt Count MPV Immature Gran % (Auto) Neut % (Auto) Lymph % (Auto) [place] % (Auto) Eos % (Auto) Baso % (Auto) Absolute Neuts (auto) Absolute Lymphs (auto) Nucleated RBC % Differential Comment PT INR Specimen Type Sample Site pH Bicarbonate Actual POC Total CO2 Base Excess O2 Saturation O2 % ABG pCO2 ABG pO2 Ken Test Respiration Rate O2 Delivery Device EPA IPAP Blood Gas Notified Whom Blood Gas Notified Time Sodium 155 H Potassium 4.0 Chloride 125 H Carbon Dioxide 26.0 Anion Gap 4 L BUN 43 H Creatinine 1.95 H Estim Creat Clear Calc 38.14 Est GFR (MDRD) Af Amer 44 L Est GFR (MDRD) Non-Af 36 L BUN/Creatinine Ratio 22.1 H Glucose 562 H* Serum Osmolality Calcium 9.0 Magnesium Urine Osmolality Ur Random Sodium Urine Creatinine POC Glucose > 500 H* 455 H* 02/06/19 02/06/19 02/06/19 13:10 14:01 16:00 WBC RBC Hgb Hct MCV MCH MCHC RDW Std Deviation RDW Coeff of [place] Plt Count MPV Immature Gran % (Auto) Neut % (Auto) Lymph % (Auto) [place] % (Auto) Eos % (Auto) Baso % (Auto) Absolute Neuts (auto) Absolute Lymphs (auto) Nucleated RBC % Differential Comment PT INR Specimen Type Sample Site pH Bicarbonate Actual POC Total CO2 Base Excess O2 Saturation O2 % ABG pCO2 ABG pO2 Ken Test Respiration Rate O2 Delivery Device EPA IPAP Blood Gas Notified Whom Blood Gas Notified Time Sodium Potassium Chloride Carbon Dioxide Anion Gap BUN Creatinine Estim Creat Clear Calc Est GFR (MDRD) Af Amer Est GFR (MDRD) Non-Af BUN/Creatinine Ratio Glucose Serum Osmolality Calcium Magnesium Urine Osmolality Ur Random Sodium Urine Creatinine POC Glucose 463 H* 500 H* > 500 H* 02/06/19 02/06/19 02/06/19 16:10 17:09 18:06 WBC RBC Hgb Hct MCV MCH MCHC RDW Std Deviation RDW Coeff of [place] Plt Count MPV Immature Gran % (Auto) Neut % (Auto) Lymph % (Auto) [place] % (Auto) Eos % (Auto) Baso % (Auto) Absolute Neuts (auto) Absolute Lymphs (auto) Nucleated RBC % Differential Comment PT INR Specimen Type Sample Site pH Bicarbonate Actual POC Total CO2 Base Excess O2 Saturation O2 % ABG pCO2 ABG pO2 Ken Test Respiration Rate O2 Delivery Device EPAP IPAP Blood Gas Notified Whom Blood Gas Notified Time Sodium 155 H Potassium 3.9 Chloride 125 H Carbon Dioxide 26.0 Anion Gap 4 L BUN 41 H Creatinine 1.84 H Estim Creat Clear Calc 40.42 Est GFR (MDRD) Af Amer 47 L Est GFR (MDRD) Non-Af 39 L BUN/Creatinine Ratio 22.3 H Glucose 549 H* Serum Osmolality Calcium 8.7 Magnesium Urine Osmolality Ur Random Sodium Urine Creatinine POC Glucose 437 H 446 H 02/06/19 02/06/19 02/06/19 19:13 20:13 20:15 WBC RBC Hgb Hct MCV MCH MCHC RDW Std Deviation RDW Coeff of [place] Plt Count MPV Immature Gran % (Auto) Neut % (Auto) Lymph % (Auto) [place] % (Auto) Eos % (Auto) Baso % (Auto) Absolute Neuts (auto) Absolute Lymphs (auto) Nucleated RBC % Differential Comment PT INR Specimen Type Sample Site pH Bicarbonate Actual POC Total CO2 Base Excess O2 Saturation O2 % ABG pCO2 ABG pO2 Ken Test Respiration Rate O2 Delivery Device EPAP IPAP Blood Gas Notified Whom Blood Gas Notified Time Sodium 157 H Potassium 3.6 Chloride 127 H* Carbon Dioxide 26.0 Anion Gap 4 L BUN 37 H Creatinine 1.89 H Estim Creat Clear Calc 39.35 Est GFR (MDRD) Af Amer 45 L Est GFR (MDRD) Non-Af 38 L BUN/Creatinine Ratio 19.6 Glucose 453 H* Serum Osmolality Calcium 9.0 Magnesium Urine Osmolality Ur Random Sodium Urine Creatinine POC Glucose 438 H 409 H 02/06/19 02/06/19 02/06/19 21:19 22:19 23:21 WBC RBC Hgb Hct MCV MCH MCHC RDW Std Deviation RDW Coeff of [place] Plt Count MPV Immature Gran % (Auto) Neut % (Auto) Lymph % (Auto) [place] % (Auto) Eos % (Auto) Baso % (Auto) Absolute Neuts (auto) Absolute Lymphs (auto) Nucleated RBC % Differential Comment PT INR Specimen Type Sample Site pH Bicarbonate Actual POC Total CO2 Base Excess O2 Saturation O2 % ABG pCO2 ABG pO2 Ken Test Respiration Rate O2 Delivery Device EPAP IPAP Blood Gas Notified Whom Blood Gas Notified Time Sodium Potassium Chloride Carbon Dioxide Anion Gap BUN Creatinine Estim Creat Clear Calc Est GFR (MDRD) Af Amer Est GFR (MDRD) Non-Af BUN/Creatinine Ratio Glucose Serum Osmolality Calcium Magnesium Urine Osmolality Ur Random Sodium Urine Creatinine POC Glucose 362 H 376 H 305 H 02/07/19 02/07/19 02/07/19 00:10 00:12 01:36 WBC RBC Hgb Hct MCV MCH MCHC RDW Std Deviation RDW Coeff of [place] Plt Count MPV Immature Gran % (Auto) Neut % (Auto) Lymph % (Auto) [place] % (Auto) Eos % (Auto) Baso % (Auto) Absolute Neuts (auto) Absolute Lymphs (auto) Nucleated RBC % Differential Comment PT INR Specimen Type Sample Site pH Bicarbonate Actual POC Total CO2 Base Excess O2 Saturation O2 % ABG pCO2 ABG pO2 Ken Test Respiration Rate O2 Delivery Device EPAP IPAP Blood Gas Notified Whom Blood Gas Notified Time Sodium 159 H Potassium 3.6 Chloride 130 H* Carbon Dioxide 25.0 Anion Gap 4 L BUN 33 H Creatinine 1.76 H Estim Creat Clear Calc 42.25 Est GFR (MDRD) Af Amer 49 L Est GFR (MDRD) Non-Af 41 L BUN/Creatinine Ratio 18.8 Glucose 314 H Serum Osmolality Calcium 9.0 Magnesium Urine Osmolality Ur Random Sodium Urine Creatinine POC Glucose 260 H 271 H 02/07/19 02/07/19 02/07/19 02:12 03:09 04:08 WBC RBC Hgb Hct MCV MCH MCHC RDW Std Deviation RDW Coeff of [place] Plt Count MPV Immature Gran % (Auto) Neut % (Auto) Lymph % (Auto) [place] % (Auto) Eos % (Auto) Baso % (Auto) Absolute Neuts (auto) Absolute Lymphs (auto) Nucleated RBC % Differential Comment PT INR Specimen Type Sample Site pH Bicarbonate Actual POC Total CO2 Base Excess O2 Saturation O2 % ABG pCO2 ABG pO2 Ken Test Respiration Rate O2 Delivery Device EPAP IPAP Blood Gas Notified Whom Blood Gas Notified Time Sodium Potassium Chloride Carbon Dioxide Anion Gap BUN Creatinine Estim Creat Clear Calc Est GFR (MDRD) Af Amer Est GFR (MDRD) Non-Af BUN/Creatinine Ratio Glucose Serum Osmolality Calcium Magnesium Urine Osmolality Ur Random Sodium Urine Creatinine POC Glucose 258 H 220 H 209 H 02/07/19 02/07/19 02/07/19 04:10 04:10 04:15 WBC 9.5 RBC 4.02 L Hgb 11.4 L Hct 36.8 L MCV 91.5 MCH 28.4 MCHC 31.0 L RDW Std Deviation 50.8 H RDW Coeff of [facility] 15.1 H Plt Count 153 MPV 10.7 Immature Gran % (Auto) 0.800 Neut % (Auto) 90.0 H Lymph % (Auto) 3.0 L [place] % (Auto) 5.9 Eos % (Auto) 0.1 Baso % (Auto) 0.2 Absolute Neuts (auto) 8.6 H Absolute Lymphs (auto) 0.29 L Nucleated RBC % 0 Differential Comment SCANNED PT 25.8 H INR 2.4 Specimen Type Sample Site pH Bicarbonate Actual POC Total CO2 Base Excess O2 Saturation O2 % ABG pCO2 ABG pO2 Ken Test Respiration Rate O2 Delivery Device EPAP IPAP Blood Gas Notified Whom Blood Gas Notified Time Sodium 163 H* Potassium 3.5 Chloride 133 H* Carbon Dioxide 25.0 Anion Gap 5 BUN 29 H Creatinine 1.54 H Estim Creat Clear Calc 48.29 Est GFR (MDRD) Af Amer 58 L Est GFR (MDRD) Non-Af 48 L BUN/Creatinine Ratio 18.8 Glucose 227 H Serum Osmolality Calcium 8.8 Magnesium Urine Osmolality Ur Random Sodium Urine Creatinine POC Glucose 02/07/19 02/07/19 02/07/19 05:06 06:06 06:25 WBC RBC Hgb Hct MCV MCH MCHC RDW Std Deviation RDW Coeff of [place] Plt Count MPV Immature Gran % (Auto) Neut % (Auto) Lymph % (Auto) [place] % (Auto) Eos % (Auto) Baso % (Auto) Absolute Neuts (auto) Absolute Lymphs (auto) Nucleated RBC % Differential Comment PT INR Specimen Type Sample Site pH Bicarbonate Actual POC Total CO2 Base Excess O2 Saturation O2 % ABG pCO2 ABG pO2 Ken Test Respiration Rate O2 Delivery Device EPAP IPAP Blood Gas Notified Whom Blood Gas Notified Time Sodium Potassium Chloride Carbon Dioxide Anion Gap BUN Creatinine Estim Creat Clear Calc Est GFR (MDRD) Af Amer Est GFR (MDRD) Non-Af BUN/Creatinine Ratio Glucose Serum Osmolality Calcium Magnesium Urine Osmolality 518 Ur Random Sodium Urine Creatinine POC Glucose 184 H 187 H 02/07/19 02/07/19 02/07/19 06:25 06:25 06:55 WBC RBC Hgb Hct MCV MCH MCHC RDW Std Deviation RDW Coeff of [facility] Plt Count MPV Immature Gran % (Auto) Neut % (Auto) Lymph % (Auto) [place] % (Auto) Eos % (Auto) Baso % (Auto) Absolute Neuts (auto) Absolute Lymphs (auto) Nucleated RBC % Differential Comment PT INR Specimen Type Sample Site pH Bicarbonate Actual POC Total CO2 Base Excess O2 Saturation O2 % ABG pCO2 ABG pO2 Ken Test Respiration Rate O2 Delivery Device EPAP IPAP Blood Gas Notified Whom Blood Gas Notified Time Sodium Potassium Chloride Carbon Dioxide Anion Gap BUN Creatinine Estim Creat Clear Calc Est GFR (MDRD) Af Amer Est GFR (MDRD) Non-Af BUN/Creatinine Ratio Glucose Serum Osmolality 337 H Calcium Magnesium Urine Osmolality Ur Random Sodium 31 Urine Creatinine 78.30 POC Glucose 02/07/19 02/07/19 02/07/19 07:20 08:05 08:10 WBC RBC Hgb Hct MCV MCH MCHC RDW Std Deviation RDW Coeff of [facility] Plt Count MPV Immature Gran % (Auto) Neut % (Auto) Lymph % (Auto) [place] % (Auto) Eos % (Auto) Baso % (Auto) Absolute Neuts (auto) Absolute Lymphs (auto) Nucleated RBC % Differential Comment PT INR Specimen Type Sample Site pH Bicarbonate Actual POC Total CO2 Base Excess O2 Saturation O2 % ABG pCO2 ABG pO2 Ken Test Respiration Rate O2 Delivery Device EPAP IPAP Blood Gas Notified Whom Blood Gas Notified Time Sodium 159 H Potassium 3.3 L Chloride 131 H* Carbon Dioxide 24.0 Anion Gap 4 L BUN 28 H Creatinine 1.63 H Estim Creat Clear Calc 45.62 Est GFR (MDRD) Af Amer 54 L Est GFR (MDRD) Non-Af 45 L BUN/Creatinine Ratio 17.2 Glucose 218 H Serum Osmolality Calcium 9.0 Magnesium Urine Osmolality Ur Random Sodium Urine Creatinine POC Glucose 222 H 202 H 02/07/19 02/07/19 02/07/19 09:06 10:03 10:59 WBC RBC Hgb Hct MCV MCH MCHC RDW Std Deviation RDW Coeff of [facility] Plt Count MPV Immature Gran % (Auto) Neut % (Auto) Lymph % (Auto) [place] % (Auto) Eos % (Auto) Baso % (Auto) Absolute Neuts (auto) Absolute Lymphs (auto) Nucleated RBC % Differential Comment PT INR Specimen Type Sample Site pH Bicarbonate Actual POC Total CO2 Base Excess O2 Saturation O2 % ABG pCO2 ABG pO2 Ken Test Respiration Rate O2 Delivery Device EPAP IPAP Blood Gas Notified Whom Blood Gas Notified Time Sodium Potassium Chloride Carbon Dioxide Anion Gap BUN Creatinine Estim Creat Clear Calc Est GFR (MDRD) Af Amer Est GFR (MDRD) Non-Af BUN/Creatinine Ratio Glucose Serum Osmolality Calcium Magnesium Urine Osmolality Ur Random Sodium Urine Creatinine POC Glucose 183 H 206 H 218 H 02/07/19 02/07/19 02/07/19 12:00 12:00 13:04 WBC RBC Hgb Hct MCV MCH MCHC RDW Std Deviation RDW Coeff of [place] Plt Count MPV Immature Gran % (Auto) Neut % (Auto) Lymph % (Auto) [place] % (Auto) Eos % (Auto) Baso % (Auto) Absolute Neuts (auto) Absolute Lymphs (auto) Nucleated RBC % Differential Comment PT INR Specimen Type Sample Site pH Bicarbonate Actual POC Total CO2 Base Excess O2 Saturation O2 % ABG pCO2 ABG pO2 Ken Test Respiration Rate O2 Delivery Device EPAP IPAP Blood Gas Notified Whom Blood Gas Notified Time Sodium 161 H* Potassium 3.3 L Chloride 132 H* Carbon Dioxide 24.0 Anion Gap 5 BUN 28 H Creatinine 1.75 H Estim Creat Clear Calc 42.50 Est GFR (MDRD) Af Amer 50 L Est GFR (MDRD) Non-Af 41 L BUN/Creatinine Ratio 16.0 Glucose 130 H Serum Osmolality Calcium 8.8 Magnesium Urine Osmolality Ur Random Sodium Urine Creatinine POC Glucose 131 H 124 H 02/07/19 02/07/19 02/07/19 13:58 15:00 16:02 WBC RBC Hgb Hct MCV MCH MCHC RDW Std Deviation RDW Coeff of [facility] Plt Count MPV Immature Gran % (Auto) Neut % (Auto) Lymph % (Auto) [place] % (Auto) Eos % (Auto) Baso % (Auto) Absolute Neuts (auto) Absolute Lymphs (auto) Nucleated RBC % Differential Comment PT INR Specimen Type Sample Site pH Bicarbonate Actual POC Total CO2 Base Excess O2 Saturation O2 % ABG pCO2 ABG pO2 Ken Test Respiration Rate O2 Delivery Device EPAP IPAP Blood Gas Notified Whom Blood Gas Notified Time Sodium Potassium Chloride Carbon Dioxide Anion Gap BUN Creatinine Estim Creat Clear Calc Est GFR (MDRD) Af Amer Est GFR (MDRD) Non-Af BUN/Creatinine Ratio Glucose Serum Osmolality Calcium Magnesium Urine Osmolality Ur Random Sodium Urine Creatinine POC Glucose 121 H 121 H 107 02/07/19 02/07/19 02/07/19 16:11 16:15 16:59 WBC RBC Hgb Hct MCV MCH MCHC RDW Std Deviation RDW Coeff of [facility] Plt Count MPV Immature Gran % (Auto) Neut % (Auto) Lymph % (Auto) [place] % (Auto) Eos % (Auto) Baso % (Auto) Absolute Neuts (auto) Absolute Lymphs (auto) Nucleated RBC % Differential Comment PT INR Specimen Type Sample Site pH Bicarbonate Actual POC Total CO2 Base Excess O2 Saturation O2 % ABG pCO2 ABG pO2 Ken Test Respiration Rate O2 Delivery Device EPAP IPAP Blood Gas Notified Whom Blood Gas Notified Time Sodium 157 H Potassium 3.5 Chloride 129 H* Carbon Dioxide 24.0 Anion Gap 4 L BUN 27 H Creatinine 1.77 H Estim Creat Clear Calc 42.02 Est GFR (MDRD) Af Amer 49 L Est GFR (MDRD) Non-Af 41 L BUN/Creatinine Ratio 15.3 Glucose 132 H Serum Osmolality Calcium 9.0 Magnesium 2.1 Urine Osmolality Ur Random Sodium Urine Creatinine POC Glucose 140 H 02/07/19 02/07/19 02/07/19 17:55 17:57 18:56 WBC RBC Hgb Hct MCV MCH MCHC RDW Std Deviation RDW Coeff of [facility] Plt Count MPV Immature Gran % (Auto) Neut % (Auto) Lymph % (Auto) [place] % (Auto) Eos % (Auto) Baso % (Auto) Absolute Neuts (auto) Absolute Lymphs (auto) Nucleated RBC % Differential Comment PT INR Specimen Type Sample Site pH Bicarbonate Actual POC Total CO2 Base Excess O2 Saturation O2 % ABG pCO2 ABG pO2 Ken Test Respiration Rate O2 Delivery Device EPAP IPAP Blood Gas Notified Whom Blood Gas Notified Time Sodium 155 H Potassium Chloride Carbon Dioxide Anion Gap BUN Creatinine Estim Creat Clear Calc Est GFR (MDRD) Af Amer Est GFR (MDRD) Non-Af BUN/Creatinine Ratio Glucose Serum Osmolality Calcium Magnesium Urine Osmolality Ur Random Sodium Urine Creatinine POC Glucose 128 H 129 H 02/07/19 02/07/19 02/07/19 19:55 19:59 21:01 WBC RBC Hgb Hct MCV MCH MCHC RDW Std Deviation RDW Coeff of [facility] Plt Count MPV Immature Gran % (Auto) Neut % (Auto) Lymph % (Auto) [place] % (Auto) Eos % (Auto) Baso % (Auto) Absolute Neuts (auto) Absolute Lymphs (auto) Nucleated RBC % Differential Comment PT INR Specimen Type Sample Site pH Bicarbonate Actual POC Total CO2 Base Excess O2 Saturation O2 % ABG pCO2 ABG pO2 Ken Test Respiration Rate O2 Delivery Device EPAP IPAP Blood Gas Notified Whom Blood Gas Notified Time Sodium 153 H Potassium 3.1 L Chloride 126 H Carbon Dioxide 22.0 Anion Gap 5 BUN 25 H Creatinine 1.76 H Estim Creat Clear Calc 42.25 Est GFR (MDRD) Af Amer 49 L Est GFR (MDRD) Non-Af 41 L BUN/Creatinine Ratio 14.2 Glucose 213 H Serum Osmolality Calcium 8.9 Magnesium Urine Osmolality Ur Random Sodium Urine Creatinine POC Glucose 125 H 133 H 02/07/19 02/07/19 02/07/19 22:00 22:08 22:58 WBC RBC Hgb Hct MCV MCH MCHC RDW Std Deviation RDW Coeff of [facility] Plt Count MPV Immature Gran % (Auto) Neut % (Auto) Lymph % (Auto) [place] % (Auto) Eos % (Auto) Baso % (Auto) Absolute Neuts (auto) Absolute Lymphs (auto) Nucleated RBC % Differential Comment PT INR Specimen Type Sample Site pH Bicarbonate Actual POC Total CO2 Base Excess O2 Saturation O2 % ABG pCO2 ABG pO2 Ken Test Respiration Rate O2 Delivery Device EPAP IPAP Blood Gas Notified Whom Blood Gas Notified Time Sodium 155 H Potassium Chloride Carbon Dioxide Anion Gap BUN Creatinine Estim Creat Clear Calc Est GFR (MDRD) Af Amer Est GFR (MDRD) Non-Af BUN/Creatinine Ratio Glucose Serum Osmolality Calcium Magnesium Urine Osmolality Ur Random Sodium Urine Creatinine POC Glucose 140 H 148 H 02/07/19 02/08/19 02/08/19 23:59 00:00 01:01 WBC RBC Hgb Hct MCV MCH MCHC RDW Std Deviation RDW Coeff of [facility] Plt Count MPV Immature Gran % (Auto) Neut % (Auto) Lymph % (Auto) [place] % (Auto) Eos % (Auto) Baso % (Auto) Absolute Neuts (auto) Absolute Lymphs (auto) Nucleated RBC % Differential Comment PT INR Specimen Type Sample Site pH Bicarbonate Actual POC Total CO2 Base Excess O2 Saturation O2 % ABG pCO2 ABG pO2 Ken Test Respiration Rate O2 Delivery Device EPA IPAP Blood Gas Notified Whom Blood Gas Notified Time Sodium 152 H Potassium 3.9 Chloride 124 H Carbon Dioxide 22.0 Anion Gap 6 BUN 25 H Creatinine 1.82 H Estim Creat Clear Calc 40.86 Est GFR (MDRD) Af Amer 48 L Est GFR (MDRD) Non-Af 39 L BUN/Creatinine Ratio 13.7 Glucose 181 H Serum Osmolality Calcium 8.8 Magnesium Urine Osmolality Ur Random Sodium Urine Creatinine POC Glucose 141 H 148 H 02/08/19 02/08/19 02/08/19 01:58 02:10 02:58 WBC RBC Hgb Hct MCV MCH MCHC RDW Std Deviation RDW Coeff of [facility] Plt Count MPV Immature Gran % (Auto) Neut % (Auto) Lymph % (Auto) [place] % (Auto) Eos % (Auto) Baso % (Auto) Absolute Neuts (auto) Absolute Lymphs (auto) Nucleated RBC % Differential Comment PT INR Specimen Type Sample Site pH Bicarbonate Actual POC Total CO2 Base Excess O2 Saturation O2 % ABG pCO2 ABG pO2 Ken Test Respiration Rate O2 Delivery Device EPAP IPAP Blood Gas Notified Whom Blood Gas Notified Time Sodium 152 H Potassium Chloride Carbon Dioxide Anion Gap BUN Creatinine Estim Creat Clear Calc Est GFR (MDRD) Af Amer Est GFR (MDRD) Non-Af BUN/Creatinine Ratio Glucose Serum Osmolality Calcium Magnesium Urine Osmolality Ur Random Sodium Urine Creatinine POC Glucose 159 H 136 H 02/08/19 02/08/19 02/08/19 03:54 04:00 04:00 WBC 7.5 RBC 4.02 L Hgb 11.5 L Hct 36.4 L MCV 90.5 MCH 28.6 MCHC 31.6 L RDW Std Deviation 49.2 H RDW Coeff of [place] 14.7 H Plt Count 121 L MPV 11.1 Immature Gran % (Auto) 0.400 Neut % (Auto) 85.9 H Lymph % (Auto) 7.2 L [place] % (Auto) 6.4 Eos % (Auto) 0.0 Baso % (Auto) 0.1 Absolute Neuts (auto) 6.4 Absolute Lymphs (auto) 0.54 L Nucleated RBC % Differential Comment PT 22.6 H INR 2.0 Specimen Type Sample Site pH Bicarbonate Actual POC Total CO2 Base Excess O2 Saturation O2 % ABG pCO2 ABG pO2 Ken Test Respiration Rate O2 Delivery Device EPAP IPAP Blood Gas Notified Whom Blood Gas Notified Time Sodium Potassium Chloride Carbon Dioxide Anion Gap BUN Creatinine Estim Creat Clear Calc Est GFR (MDRD) Af Amer Est GFR (MDRD) Non-Af BUN/Creatinine Ratio Glucose Serum Osmolality Calcium Magnesium Urine Osmolality Ur Random Sodium Urine Creatinine POC Glucose Pending 02/08/19 02/08/19 02/08/19 04:00 04:58 05:55 WBC RBC Hgb Hct MCV MCH MCHC RDW Std Deviation RDW Coeff of [facility] Plt Count MPV Immature Gran % (Auto) Neut % (Auto) Lymph % (Auto) [place] % (Auto) Eos % (Auto) Baso % (Auto) Absolute Neuts (auto) Absolute Lymphs (auto) Nucleated RBC % Differential Comment PT INR Specimen Type Sample Site pH Bicarbonate Actual POC Total CO2 Base Excess O2 Saturation O2 % ABG pCO2 ABG pO2 Ken Test Respiration Rate O2 Delivery Device EPAP IPAP Blood Gas Notified Whom Blood Gas Notified Time Sodium 154 H Potassium 3.8 Chloride 125 H Carbon Dioxide 22.0 Anion Gap 7 BUN 26 H Creatinine 1.63 H Estim Creat Clear Calc 45.62 Est GFR (MDRD) Af Amer 55 L Est GFR (MDRD) Non-Af 45 L BUN/Creatinine Ratio 16.0 Glucose 143 H Serum Osmolality Calcium 8.7 Magnesium Urine Osmolality Ur Random Sodium Urine Creatinine POC Glucose Pending Pending 02/08/19 06:54 WBC RBC Hgb Hct MCV MCH MCHC RDW Std Deviation RDW Coeff of [facility] Plt Count MPV Immature Gran % (Auto) Neut % (Auto) Lymph % (Auto) [place] % (Auto) Eos % (Auto) Baso % (Auto) Absolute Neuts (auto) Absolute Lymphs (auto) Nucleated RBC % Differential Comment PT INR Specimen Type Sample Site pH Bicarbonate Actual POC Total CO2 Base Excess O2 Saturation O2 % ABG pCO2 ABG pO2 Ken Test Respiration Rate O2 Delivery Device EPAP IPAP Blood Gas Notified Whom Blood Gas Notified Time Sodium Potassium Chloride Carbon Dioxide Anion Gap BUN Creatinine Estim Creat Clear Calc Est GFR (MDRD) Af Amer Est GFR (MDRD) Non-Af BUN/Creatinine Ratio Glucose Serum Osmolality Calcium Magnesium Urine Osmolality Ur Random Sodium Urine Creatinine POC Glucose Pending Microbiology 02/07/19 09:40 Blood Culture (Wb) - Right Wrist Blood Culture - Preliminary 02/07/19 09:45 Blood Culture (Wb) - Right Hand Blood Culture - Preliminary 02/06/19 11:00 Blood Culture (Wb) - Venous Blood Culture - Preliminary Gram Positive Cocci 02/06/19 08:50 Blood Culture (Wb) - Anticubital Right Blood Culture - Preliminary Gram Positive Cocci 02/05/19 13:40 Blood Culture (Wb) - Right Wrist Blood Culture - Preliminary Gram Positive Cocci 02/05/19 13:30 Blood Culture (Wb) - Left Forearm Bacteria Detection (PCR) - Final Staphylococcus aureus 02/05/19 13:30 Blood Culture (Wb) - Left Forearm Blood Culture - Preliminary Staphylococcus aureus Medical Necessity - Tobacco Use Smoking Status: Unknown if ever smoked Tobacco Use: - - Unknown tobacco history-patient not able to provide Assessment/Plan All Active Problems Hyperosmolar coma due to secondary diabetes (Acute) Hypernatremia (Acute) Hypoglycemia (Resolved) Hypothermia (Resolved) Altered mental state (Acute) Acute osteomyelitis of metacarpal bone (Resolved) Osteomyelitis of toe of right foot (Resolved) Right 2nd toe suspected osteomyelitis (Resolved) Right 2nd toe gangrene (Resolved) RECOMMENDATIONS: 1. Continue D5W and monitoring sodium 2. Continue cefazolin and, consider infectious disease consult 3. Insulin drip per protocol 4. Possible need for spinal MRI 5. BiPAP breaks as tolerated 6. Continue rate control for A. fib IMPRESSIONS: 1. Hyperosmolar non-ketosis with coma/metabolic encephalopathy Patient presented with a blood glucose of over 1500. Patient has not been able to answer many questions at this time. Patient currently is on D5W secondary to hypernatremia and insulin drip has been relatively stable. Will likely continue both of these until sodium is in acceptable range. Patient's mental status is not significantly improved, but patient continues to have spontaneous movements. 2. Staph aureus sepsis Patient is growing staph aureus from blood cultures repeatedly, so contaminant is unlikely. Patient has been placed on vancomycin initially, but was transition to cefazolin yesterday. Patient does have some discomfort with change in body position per nursing. Patient may benefit from imaging of the spine given discomfort. Consider infectious disease consult. Attempt to avoid central access until bacteremia can be cleared. 3. Acute kidney injury secondary to #1/Hypernatremia/hyperchloremic metabolic acidosis Renal function has improved, but patient is having significant hyperchloremia and hypernatremia despite receiving only free water. Patient is not having significant urinary output to suggest diabetes insipidus at this time. FENa less than 1%. Patient is responding to free water intermittently. We will continue to monitor respiratory status given volume. 4. CAD/paroxysmal A. fib/chronic Coumadin therapy/PAD/chronic diastolic CHF Given need for antibiotics, patient's INR will need to be watched. Coumadin has been held for now. Reasonable to use SCDs for DVT prophylaxis. Will need to watch fluid status closely as patient may go into flash pulmonary edema given level of fluids. Patient continues to appear near euvolemia at this time. 5. Reported COPD versus pulmonary fibrosis/acute hypercarbic respiratory failure Unclear pulmonary history. Patient reportedly has COPD, but previous CT scan show her social think giving possible pulmonary fibrosis. Patient is on bronchodilators at this time. Patient does not appear to have purulent sputum, so we will hold off on any steroid therapy. Continue with bronchodilators only. Attempt to obtain further information. ABG does show non-anion gap metabolic acidosis with failure to compensate despite BiPAP therapy. This would constitute acute hypercarbic respiratory failure. Clinical suspicion for decreased mental status leading to failure to compensate. Continue to give BiPAP breaks as tolerated to allow skin to have a break more than respiratory status. 6. Advanced age/hyperlipidemia/hypertension/history of osteomyelitis Complicates care, management, recovery and prognosis. Okay to continue with baseline medications, but will need to watch blood pressure closely given positive blood cultures. REED was relatively unremarkable. Consider possible MRI of the spine for discitis. Need to clarify CODE STATUS once patient's family arrives. Patient will be a full code by default at this time. TIME: 31 minutes critical care time spent addressing patient's hyperosmolar non-ketosis with coma, hypernatremia, staph sepsis, acute kidney injury, respiratory failure, review of all data and collaboration with care team (6 AM to 8 AM) Code Visit Procedures: [id number] Critial Care 1st Hr
[2019-02-08 08:38] LABS: Anion Gap 6 (5-15); BUN 27 mg/dL (7-18); BUN/Creat Ratio 17.1 RATIO (10-20); Chloride 126 mmol/L (98-107); Creatinine, Serum 1.58 mg/dL (0.70-1.30); EST Glomerular Filtration Rate 46 mL/min (>60); Est Glom Filt Rate - Afr Amer 56 mL/min (>60); Estimated Creatinine Clearance 47.07 ml/min; Glucose 154 mg/dL (74-106); Potassium 3.1 mmol/L (3.5-5.1); Sodium Level 153 mmol/L (136-145)
[2019-02-08] MEDS: Heparin Injection (Vial) 5,000 UNIT/ML VIAL 5000 UNIT SC ×2 (09:46→21:05)
[2019-02-08] MEDS: CHLORHEXIDINE GLUC 2% CLOTH 1 EACH TOWELETTE TOPICAL (09:46)
--- NOTE | 2019-02-08 10:30 | PCM.PN.HOSP ---
Patient Problems: Active and Suspected Problems Hyperosmolar coma due to secondary diabetes (Acute) Hypernatremia (Acute) Subjective: Still confused, does not follow commands nor answer questions. Vitals/I&O's: Vital Signs Temp Pulse Resp BP Pulse Ox 37.7 C H 127 H 38 H 165/66 H 99 02/08/19 08:00 02/08/19 10:00 02/08/19 10:00 02/08/19 10:00 02/08/19 10:00 Oxygen Flow Rate (L/min) 2 Oxygen Delivery Method Nasal Cannula Weight: 84.8 kg Body Mass Index (BMI) 24.5 Finger Stick Blood Glucose 114 Intake and Output for Last 24 Hours 02/06/19 02/07/19 02/08/19 23:59 23:59 23:59 Intake Total 3275.71 / 3350.71 3500.16 / 3597.73 1962.57 / 1962.57 Output Total 2575 / 2575 900 / 1400 950 / 950 Balance 700.71 / 775.71 2600.16 / 2197.73 1012.57 / 1012.57 General: No apparent distress, Confused HEENT: Atraumatic, Normocephalic, - - no icterus Oral: No Gingival or Mucosal Lesions/ Ulcerations, Dry Mucosa Neck: No Nodes, Thyroid Normal Size and Texture Lungs: Clear to auscultation, Normal air movement Cardiovascular: Regular rate, Regular Rhythm, Normal S1 Abdomen: Bowel Sounds Present, Soft, Non Tender, Non-Distended Extremities: No edema, No Calf Tenderness Skin: No rashes, No breakdown Musculoskeletal: No Tenderness to Palpation of Joints or Extremities, No Muscle Wasting Neurological: - - moves all extremities spontaneously. no clonus. Psych/Mental Status: Agitated, Anxious Microbiology Past 72 Hours 02/07/19 09:45 Blood Culture (Wb) - Right Hand Blood Culture - Preliminary Staphylococcus aureus 02/06/19 11:00 Blood Culture (Wb) - Venous Blood Culture - Preliminary Staphylococcus aureus 02/06/19 08:50 Blood Culture (Wb) - Anticubital Right Blood Culture - Preliminary Staphylococcus aureus 02/07/19 09:40 Blood Culture (Wb) - Right Wrist Blood Culture - Preliminary 02/05/19 13:40 Blood Culture (Wb) - Right Wrist Blood Culture - Preliminary Gram Positive Cocci 02/05/19 13:30 Blood Culture (Wb) - Left Forearm Bacteria Detection (PCR) - Final Staphylococcus aureus 02/05/19 13:30 Blood Culture (Wb) - Left Forearm Blood Culture - Preliminary Staphylococcus aureus Laboratory Results 02/07/19 10:59: POC Glucose 218 H 02/07/19 12:00: Sodium 161 H*, Potassium 3.3 L, Chloride 132 H*, Carbon Dioxide 24.0, Anion Gap 5, BUN 28 H, Creatinine 1.75 H, Estim Creat Clear Calc 42.50, Est GFR (MDRD) Af Amer 50 L, Est GFR (MDRD) Non-Af 41 L, BUN/Creatinine Ratio 16.0, Glucose 130 H, Calcium 8.8 02/07/19 12:00: POC Glucose 131 H 02/07/19 13:04: POC Glucose 124 H 02/07/19 13:58: POC Glucose 121 H 02/07/19 15:00: POC Glucose 121 H 02/07/19 16:02: POC Glucose 107 02/07/19 16:11: Magnesium 2.1 02/07/19 16:15: Sodium 157 H, Potassium 3.5, Chloride 129 H*, Carbon Dioxide 24.0, Anion Gap 4 L, BUN 27 H, Creatinine 1.77 H, Estim Creat Clear Calc 42.02, Est GFR (MDRD) Af Amer 49 L, Est GFR (MDRD) Non-Af 41 L, BUN/Creatinine Ratio 15.3, Glucose 132 H, Calcium 9.0 02/07/19 16:59: POC Glucose 140 H 02/07/19 17:55: Sodium 155 H 02/07/19 17:57: POC Glucose 128 H 02/07/19 18:56: POC Glucose 129 H 02/07/19 19:55: Sodium 153 H, Potassium 3.1 L, Chloride 126 H, Carbon Dioxide 22.0, Anion Gap 5, BUN 25 H, Creatinine 1.76 H, Estim Creat Clear Calc 42.25, Est GFR (MDRD) Af Amer 49 L, Est GFR (MDRD) Non-Af 41 L, BUN/Creatinine Ratio 14.2, Glucose 213 H, Calcium 8.9 02/07/19 19:59: POC Glucose 125 H 02/07/19 21:01: POC Glucose 133 H 02/07/19 22:00: Sodium 155 H 02/07/19 22:08: POC Glucose 140 H 02/07/19 22:58: POC Glucose 148 H 02/07/19 23:59: POC Glucose 141 H 02/08/19 00:00: Sodium 152 H, Potassium 3.9, Chloride 124 H, Carbon Dioxide 22.0, Anion Gap 6, BUN 25 H, Creatinine 1.82 H, Estim Creat Clear Calc 40.86, Est GFR (MDRD) Af Amer 48 L, Est GFR (MDRD) Non-Af 39 L, BUN/Creatinine Ratio 13.7, Glucose 181 H, Calcium 8.8 02/08/19 01:01: POC Glucose 148 H 02/08/19 01:58: POC Glucose 159 H 02/08/19 02:10: Sodium 152 H 02/08/19 02:58: POC Glucose 136 H 02/08/19 03:54: POC Glucose Pending 02/08/19 04:00: WBC 7.5, RBC 4.02 L, Hgb 11.5 L, Hct 36.4 L, MCV 90.5, MCH 28.6, MCHC 31.6 L, RDW Std Deviation 49.2 H, RDW Coeff of [place] 14.7 H, Plt Count 121 L, MPV 11.1, Immature Gran % (Auto) 0.400, Neut % (Auto) 85.9 H, Lymph % (Auto) 7.2 L, [place] % (Auto) 6.4, Eos % (Auto) 0.0, Baso % (Auto) 0.1, Absolute Neuts (auto) 6.4, Absolute Lymphs (auto) 0.54 L 02/08/19 04:00: PT 22.6 H, INR 2.0 02/08/19 04:00: Sodium 154 H, Potassium 3.8, Chloride 125 H, Carbon Dioxide 22.0, Anion Gap 7, BUN 26 H, Creatinine 1.63 H, Estim Creat Clear Calc 45.62, Est GFR (MDRD) Af Amer 55 L, Est GFR (MDRD) Non-Af 45 L, BUN/Creatinine Ratio 16.0, Glucose 143 H, Calcium 8.7 02/08/19 04:58: POC Glucose Pending 02/08/19 05:55: POC Glucose Pending 02/08/19 06:54: POC Glucose Pending 02/08/19 08:00: Sodium 153 H, Potassium 3.1 L, Chloride 126 H, Carbon Dioxide 21.0, Anion Gap 6, BUN 27 H, Creatinine 1.58 H, Estim Creat Clear Calc 47.07, Est GFR (MDRD) Af Amer 56 L, Est GFR (MDRD) Non-Af 46 L, BUN/Creatinine Ratio 17.1, Glucose 154 H, Calcium 8.0 L 02/08/19 08:03: POC Glucose Pending Current Medications Albuterol Sulfate (Ventolin Aerosols) 2.5 mg INHALATION Q4H.RT PRN PRN Reason: SOB &/OR WHEEZING Atorvastatin Calcium (Lipitor) 40 mg PO QHS [facility] Last Admin: 02/07/19 22:14 Dose: Not Given Documented by: Chlorhexidine Gluconate () 1 each TOPICAL DAILY [facility] Last Admin: 02/08/19 09:46 Dose: 1 each Documented by: Clopidogrel Bisulfate (Plavix) 75 mg PO DAILY [facility] Last Admin: 02/08/19 09:41 Dose: Not Given Documented by: Dextrose (D50w Syringe) 0 gm IV X1 PRN; Protocol PRN Reason: HYPOGLYCEMIA Dronedarone (Multaq) 400 mg PO BID [facility] Last Admin: 02/08/19 09:41 Dose: Not Given Documented by: Famotidine (Pepcid) 40 mg PO DAILY [facility] Last Admin: 02/08/19 09:41 Dose: Not Given Documented by: Gabapentin (Neurontin) 300 mg PO BIDCM [facility] Last Admin: 02/08/19 07:41 Dose: Not Given Documented by: Glucagon () 1 mg IM .X1 PRN PRN Reason: Hypoglycemia Heparin Sodium (Porcine) (Heparin Na) 5,000 unit SC Q12 [facility] Last Admin: 02/08/19 09:46 Dose: 5,000 unit Documented by: Insulin Human Lispro 100 unit/ (Sodium Chloride) 100 mls @ 8.47 mls/hr IV .[id number] [facility]; Protocol Last Titration: 02/08/19 10:00 Dose: 0.11 units/kg/hr, 9 mls/hr Documented by: Dextrose () 1,000 mls @ 125 mls/hr IV .Q8H [facility] Last Infusion: 02/08/19 05:59 Dose: 125 mls/hr Documented by: Cefazolin Sodium () 1 gm in 50 mls @ 100 mls/hr IV Q8 [facility] Last Infusion: 02/08/19 05:58 Dose: Infused Documented by: Potassium Chloride () 10 meq in 100 mls @ 100 mls/hr IV BOLUS Q1H [facility] Stop: 02/08/19 04:44 Last Infusion: 02/08/19 05:09 Dose: Infused Documented by: Potassium Chloride () 10 meq in 100 mls @ 100 mls/hr IV BOLUS Q1H [facility] Stop: 02/08/19 17:29 Last Admin: 02/08/19 09:43 Dose: 100 mls/hr Documented by: Labetalol HCl (Trandate) 10 mg IV Q4H PRN PRN PRN Reason: SBP > 160 Last Admin: 02/06/19 01:40 Dose: 10 mg Documented by: Metoprolol Tartrate (Lopressor (Beta Hi)) 5 mg IV Q6 [facility] Last Admin: 02/08/19 05:01 Dose: 5 mg Documented by: Nitroglycerin (Nitrostat) 0.4 mg SUBLINGUAL Q5M PRN PRN Reason: Chest Pain Ondansetron HCl (Zofran) 4 mg IV Q6H PRN PRN PRN Reason: NAUSEA/VOMITING Sodium Chloride () 5 - 15 ml IV UD PRN PRN Reason: SALINE FLUSH Last Admin: 02/07/19 17:06 Dose: 10 ml Documented by: Medical Necessity - Tobacco Use Smoking Status: Unknown if ever smoked Tobacco Use: - - Unknown tobacco history-patient not able to provide Assessment/Plan All Active Problems Hyperosmolar coma due to secondary diabetes (Acute) Hypernatremia (Acute) Hypoglycemia (Resolved) Hypothermia (Resolved) Altered mental state (Acute) Acute osteomyelitis of metacarpal bone (Resolved) Osteomyelitis of toe of right foot (Resolved) Right 2nd toe suspected osteomyelitis (Resolved) Right 2nd toe gangrene (Resolved) 1. Hyperosmolar, hyperglycemia non-ketotic state ongoing mental status essentially unchanged from 02/06 improved blood sugar with insulin gtt, however sodium increasing. continue D5W, improved from yesterday overall, increase rate to 150 from 125. if no improvement in MS as Na normalized, consider reimaging. 2. Bacteremia 08/07 positive. +MSSA DC vanc, start cefazolin repeat blood cultures, check echo consult ID (to see 02/09) TTE negative for any vegetation may need spine imaging when able. 3. Sepsis POA 2/2 #2 mgmt as above for #2 4. BRIDGETT improving, appears back to baseline likely prerenal admission Cr 3.17, baseline 1.57 5. pafib w RVR despite boluses of IV metoprolol, may need to consider diltiazem gtt on dronedarone warfarin held given encephalopathy, may need to initiate enoxaparin, but hold off for now in case needs central line. check INR. 6. hypokalemia replaced monitor magnesium normal on 02/07 7. VTE proph: SQ heparin 8. Prognosis: guarded. Code Visit Inpatient E&M: 06617 Subs Hosp L3
[2019-02-08 11:27] LABS: Bedside Glucose 111 mg/dL (70-110)
[2019-02-08 11:27] LABS: Bedside Glucose 143 mg/dL (70-110)
[2019-02-08 11:27] LABS: Bedside Glucose 140 mg/dL (70-110)
[2019-02-08 11:27] LABS: Bedside Glucose 139 mg/dL (70-110)
[2019-02-08 11:27] LABS: Bedside Glucose 114 mg/dL (70-110)
[2019-02-08 11:27] LABS: Bedside Glucose 114 mg/dL (70-110)
[2019-02-08 11:27] LABS: Bedside Glucose 149 mg/dL (70-110)
[2019-02-08 11:27] LABS: Bedside Glucose 120 mg/dL (70-110)
[2019-02-08 12:20] LABS: Bedside Glucose 111 mg/dL (70-110)
[2019-02-08 12:20] LABS: Glucose 123 mg/dL (74-106)
[2019-02-08 12:21] LABS: Anion Gap 8 (5-15); BUN 26 mg/dL (7-18); BUN/Creat Ratio 16.6 RATIO (10-20); Calcium,Total 8.4 mg/dL (8.5-10.1); Chloride 121 mmol/L (98-107); Creatinine, Serum 1.57 mg/dL (0.70-1.30); EST Glomerular Filtration Rate 47 mL/min (>60); Est Glom Filt Rate - Afr Amer 57 mL/min (>60); Estimated Creatinine Clearance 47.37 ml/min; Potassium 3.5 mmol/L (3.5-5.1); Sodium Level 151 mmol/L (136-145)
[2019-02-08 15:11] LABS: Bedside Glucose 93 mg/dL (70-110)
[2019-02-08 15:11] LABS: Bedside Glucose 116 mg/dL (70-110)
[2019-02-08 15:11] LABS: Bedside Glucose 112 mg/dL (70-110)
[2019-02-08 16:31] LABS: Anion Gap 7 (5-15); BUN 27 mg/dL (7-18); BUN/Creat Ratio 17.4 RATIO (10-20); Calcium,Total 8.2 mg/dL (8.5-10.1); Chloride 120 mmol/L (98-107); Creatinine, Serum 1.55 mg/dL (0.70-1.30); EST Glomerular Filtration Rate 47 mL/min (>60); Est Glom Filt Rate - Afr Amer 57 mL/min (>60); Estimated Creatinine Clearance 47.98 ml/min; Glucose 110 mg/dL (74-106); Potassium 3.5 mmol/L (3.5-5.1); Sodium Level 149 mmol/L (136-145)
[2019-02-08 17:26] LABS: Bedside Glucose 99 mg/dL (70-110)
[2019-02-08 17:26] LABS: Bedside Glucose 103 mg/dL (70-110)
[2019-02-08] MEDS: NYSTATIN 500,000 UNIT/5 ML UDC 500000 UNIT PO ×2 (18:04→21:05)
[2019-02-08 18:10] LABS: Bedside Glucose 110 mg/dL (70-110)
[2019-02-08 18:56] LABS: Bedside Glucose 94 mg/dL (70-110)
[2019-02-08 20:16] LABS: Bedside Glucose 91 mg/dL (70-110)
[2019-02-08 20:29] LABS: Anion Gap 7 (5-15); BUN 27 mg/dL (7-18); BUN/Creat Ratio 17.8 RATIO (10-20); Calcium,Total 8.4 mg/dL (8.5-10.1); Chloride 117 mmol/L (98-107); Creatinine, Serum 1.52 mg/dL (0.70-1.30); EST Glomerular Filtration Rate 48 mL/min (>60); Est Glom Filt Rate - Afr Amer 58 mL/min (>60); Estimated Creatinine Clearance 48.93 ml/min; Glucose 98 mg/dL (74-106); Potassium 3.8 mmol/L (3.5-5.1); Sodium Level 145 mmol/L (136-145)
[2019-02-08 21:06] LABS: Bedside Glucose 107 mg/dL (70-110)
[2019-02-08 23:16] LABS: Bedside Glucose 105 mg/dL (70-110)
[2019-02-09] VITALS (31 sets, daily range): BP systolic 91–168; BP diastolic 52–96; PULSE 83–139; RESP 12–45; TEMP 36.6–37.4; O2SAT 94–99
[2019-02-09 00:36] LABS: Bedside Glucose 114 mg/dL (70-110)
[2019-02-09 00:49] LABS: Anion Gap 7 (5-15); BUN 28 mg/dL (7-18); BUN/Creat Ratio 18.3 RATIO (10-20); Calcium,Total 7.9 mg/dL (8.5-10.1); Chloride 117 mmol/L (98-107); Creatinine, Serum 1.53 mg/dL (0.70-1.30); EST Glomerular Filtration Rate 48 mL/min (>60); Est Glom Filt Rate - Afr Amer 58 mL/min (>60); Estimated Creatinine Clearance 48.61 ml/min; Glucose 111 mg/dL (74-106); Potassium 3.7 mmol/L (3.5-5.1); Sodium Level 145 mmol/L (136-145)
[2019-02-09 01:01] LABS: Bedside Glucose 120 mg/dL (70-110)
[2019-02-09 02:21] LABS: Bedside Glucose 99 mg/dL (70-110)
[2019-02-09 03:16] LABS: Bedside Glucose 105 mg/dL (70-110)
[2019-02-09 04:36] LABS: Bedside Glucose 105 mg/dL (70-110)
[2019-02-09 04:55] LABS: Anion Gap 10 (5-15); BUN 30 mg/dL (7-18); BUN/Creat Ratio 19.2 RATIO (10-20); Chloride 116 mmol/L (98-107); Creatinine, Serum 1.56 mg/dL (0.70-1.30); EST Glomerular Filtration Rate 47 mL/min (>60); Est Glom Filt Rate - Afr Amer 57 mL/min (>60); Estimated Creatinine Clearance 47.67 ml/min; Glucose 112 mg/dL (74-106); Potassium 3.7 mmol/L (3.5-5.1); Sodium Level 145 mmol/L (136-145)
[2019-02-09] MEDS: Metoprolol Tartrate 5 MG/5 ML Vial IV ×3 (06:12→17:18)
[2019-02-09] MEDS: 0.9% NaCl Peripheral Flush Adult/Peds IV ×2 (06:16→23:23)
[2019-02-09] MEDS: Cefazolin 1 GM/50 ML BAG IV (06:17)
--- NOTE | 2019-02-09 06:39 | PN_ITS ---
Subjective: The patient was seen and examined at the bedside this morning. Events from the last 24 hours have been reviewed. The patient is currently afebrile, hemodynamically stable and maintaining appropriate oxygen saturations on room air BiPAP. Sodium is improved this morning to 145. Creatinine is stable. The patient is currently documented to be overall net +8.8 L for the admission. Following ICU rounds, the patient was able to be removed from BiPAP therapy. He is now verbal and attempting to communicate. Objective: The patient's most recent lab work, culture data and imaging studies have all been personally reviewed. Surface echocardiogram completed on February 07 revealed stage II diastolic dysfunction with a right ventricular systolic pressure estimated to be 29 mmHg. The patient has been persistently bacteremic with blood cultures growing MSSA dating back to February 05. General: Alert, No apparent distress, Confused, - HEENT: Atraumatic, PERRLA, Normocephalic Oral: No Gingival or Mucosal Lesions/ Ulcerations, - - BiPAP mask in place Neck: Supple, No Nodes, Trachea Midline Lungs: No rhonchi, No wheeze, No rales, Diminished Cardiovascular: Normal S1, Normal S2, No murmurs, Irregular Rate, Tachycardic Abdomen: Bowel Sounds Present, Soft, Non Tender, Obese Extremities: No clubbing, No cyanosis, No edema Skin: No rashes Musculoskeletal: No Muscle Wasting Lymphatic: No Cervical, Supraclavicular, or Inguinal Adenopathy Neurological: - - The patient is currently alert and will follow simple commands. However, he is currently nonverbal. Tracks movement with eyes. Psych/Mental Status: Flat Affect Vital Signs Temp Pulse Resp BP Pulse Ox 97.9 F 110 H 32 H 135/65 H 98 02/09/19 04:00 02/09/19 06:12 02/09/19 05:00 02/09/19 06:12 02/09/19 05:00 Oxygen Flow Rate (L/min) 2 Oxygen Delivery Method Bi-pap Weight: 186 lb 15.232 oz Body Mass Index (BMI) 24.5 Finger Stick Blood Glucose 107 Intake and Output for Last 24 Hours 02/07/19 02/08/19 02/09/19 23:59 23:59 23:59 Intake Total 3500.16 / 3597.73 4666.15 / 4666.15 1026.9 / 1026.9 Output Total 900 / 1400 1775 / 2350 575 / 575 Balance 2600.16 / 2197.73 2891.15 / 2316.15 451.9 / 451.9 Labs (Last 48 Hours) 02/07/19 02/07/19 02/07/19 06:25 06:25 06:25 WBC RBC Hgb Hct MCV MCH MCHC RDW Std Deviation RDW Coeff of [place] Plt Count MPV Immature Gran % (Auto) Neut % (Auto) Lymph % (Auto) Harrison % (Auto) Eos % (Auto) Baso % (Auto) Absolute Neuts (auto) Absolute Lymphs (auto) PT INR Sodium Potassium Chloride Carbon Dioxide Anion Gap BUN Creatinine Estim Creat Clear Calc Est GFR (MDRD) Af Amer Est GFR (MDRD) Non-Af BUN/Creatinine Ratio Glucose Serum Osmolality Calcium Magnesium Urine Osmolality 518 Ur Random Sodium 31 Urine Creatinine 78.30 POC Glucose 02/07/19 02/07/19 02/07/19 06:55 07:20 08:05 WBC RBC Hgb Hct MCV MCH MCHC RDW Std Deviation RDW Coeff of [place] Plt Count MPV Immature Gran % (Auto) Neut % (Auto) Lymph % (Auto) Harrison % (Auto) Eos % (Auto) Baso % (Auto) Absolute Neuts (auto) Absolute Lymphs (auto) PT INR Sodium 159 H Potassium 3.3 L Chloride 131 H* Carbon Dioxide 24.0 Anion Gap 4 L BUN 28 H Creatinine 1.63 H Estim Creat Clear Calc 45.62 Est GFR (MDRD) Af Amer 54 L Est GFR (MDRD) Non-Af 45 L BUN/Creatinine Ratio 17.2 Glucose 218 H Serum Osmolality 337 H Calcium 9.0 Magnesium Urine Osmolality Ur Random Sodium Urine Creatinine POC Glucose 222 H 02/07/19 02/07/19 02/07/19 08:10 09:06 10:03 WBC RBC Hgb Hct MCV MCH MCHC RDW Std Deviation RDW Coeff of [place] Plt Count MPV Immature Gran % (Auto) Neut % (Auto) Lymph % (Auto) Harrison % (Auto) Eos % (Auto) Baso % (Auto) Absolute Neuts (auto) Absolute Lymphs (auto) PT INR Sodium Potassium Chloride Carbon Dioxide Anion Gap BUN Creatinine Estim Creat Clear Calc Est GFR (MDRD) Af Amer Est GFR (MDRD) Non-Af BUN/Creatinine Ratio Glucose Serum Osmolality Calcium Magnesium Urine Osmolality Ur Random Sodium Urine Creatinine POC Glucose 202 H 183 H 206 H 02/07/19 02/07/19 02/07/19 10:59 12:00 12:00 WBC RBC Hgb Hct MCV MCH MCHC RDW Std Deviation RDW Coeff of [place] Plt Count MPV Immature Gran % (Auto) Neut % (Auto) Lymph % (Auto) Harrison % (Auto) Eos % (Auto) Baso % (Auto) Absolute Neuts (auto) Absolute Lymphs (auto) PT INR Sodium 161 H* Potassium 3.3 L Chloride 132 H* Carbon Dioxide 24.0 Anion Gap 5 BUN 28 H Creatinine 1.75 H Estim Creat Clear Calc 42.50 Est GFR (MDRD) Af Amer 50 L Est GFR (MDRD) Non-Af 41 L BUN/Creatinine Ratio 16.0 Glucose 130 H Serum Osmolality Calcium 8.8 Magnesium Urine Osmolality Ur Random Sodium Urine Creatinine POC Glucose 218 H 131 H 02/07/19 02/07/19 02/07/19 13:04 13:58 15:00 WBC RBC Hgb Hct MCV MCH MCHC RDW Std Deviation RDW Coeff of [place] Plt Count MPV Immature Gran % (Auto) Neut % (Auto) Lymph % (Auto) Harrison % (Auto) Eos % (Auto) Baso % (Auto) Absolute Neuts (auto) Absolute Lymphs (auto) PT INR Sodium Potassium Chloride Carbon Dioxide Anion Gap BUN Creatinine Estim Creat Clear Calc Est GFR (MDRD) Af Amer Est GFR (MDRD) Non-Af BUN/Creatinine Ratio Glucose Serum Osmolality Calcium Magnesium Urine Osmolality Ur Random Sodium Urine Creatinine POC Glucose 124 H 121 H 121 H 02/07/19 02/07/19 02/07/19 16:02 16:11 16:15 WBC RBC Hgb Hct MCV MCH MCHC RDW Std Deviation RDW Coeff of [place] Plt Count MPV Immature Gran % (Auto) Neut % (Auto) Lymph % (Auto) Harrison % (Auto) Eos % (Auto) Baso % (Auto) Absolute Neuts (auto) Absolute Lymphs (auto) PT INR Sodium 157 H Potassium 3.5 Chloride 129 H* Carbon Dioxide 24.0 Anion Gap 4 L BUN 27 H Creatinine 1.77 H Estim Creat Clear Calc 42.02 Est GFR (MDRD) Af Amer 49 L Est GFR (MDRD) Non-Af 41 L BUN/Creatinine Ratio 15.3 Glucose 132 H Serum Osmolality Calcium 9.0 Magnesium 2.1 Urine Osmolality Ur Random Sodium Urine Creatinine POC Glucose 107 02/07/19 02/07/19 02/07/19 16:59 17:55 17:57 WBC RBC Hgb Hct MCV MCH MCHC RDW Std Deviation RDW Coeff of [place] Plt Count MPV Immature Gran % (Auto) Neut % (Auto) Lymph % (Auto) Harrison % (Auto) Eos % (Auto) Baso % (Auto) Absolute Neuts (auto) Absolute Lymphs (auto) PT INR Sodium 155 H Potassium Chloride Carbon Dioxide Anion Gap BUN Creatinine Estim Creat Clear Calc Est GFR (MDRD) Af Amer Est GFR (MDRD) Non-Af BUN/Creatinine Ratio Glucose Serum Osmolality Calcium Magnesium Urine Osmolality Ur Random Sodium Urine Creatinine POC Glucose 140 H 128 H 02/07/19 02/07/19 02/07/19 18:56 19:55 19:59 WBC RBC Hgb Hct MCV MCH MCHC RDW Std Deviation RDW Coeff of [place] Plt Count MPV Immature Gran % (Auto) Neut % (Auto) Lymph % (Auto) Harrison % (Auto) Eos % (Auto) Baso % (Auto) Absolute Neuts (auto) Absolute Lymphs (auto) PT INR Sodium 153 H Potassium 3.1 L Chloride 126 H Carbon Dioxide 22.0 Anion Gap 5 BUN 25 H Creatinine 1.76 H Estim Creat Clear Calc 42.25 Est GFR (MDRD) Af Amer 49 L Est GFR (MDRD) Non-Af 41 L BUN/Creatinine Ratio 14.2 Glucose 213 H Serum Osmolality Calcium 8.9 Magnesium Urine Osmolality Ur Random Sodium Urine Creatinine POC Glucose 129 H 125 H 02/07/19 02/07/19 02/07/19 21:01 22:00 22:08 WBC RBC Hgb Hct MCV MCH MCHC RDW Std Deviation RDW Coeff of [place] Plt Count MPV Immature Gran % (Auto) Neut % (Auto) Lymph % (Auto) Harrison % (Auto) Eos % (Auto) Baso % (Auto) Absolute Neuts (auto) Absolute Lymphs (auto) PT INR Sodium 155 H Potassium Chloride Carbon Dioxide Anion Gap BUN Creatinine Estim Creat Clear Calc Est GFR (MDRD) Af Amer Est GFR (MDRD) Non-Af BUN/Creatinine Ratio Glucose Serum Osmolality Calcium Magnesium Urine Osmolality Ur Random Sodium Urine Creatinine POC Glucose 133 H 140 H 02/07/19 02/07/19 02/08/19 22:58 23:59 00:00 WBC RBC Hgb Hct MCV MCH MCHC RDW Std Deviation RDW Coeff of [place] Plt Count MPV Immature Gran % (Auto) Neut % (Auto) Lymph % (Auto) Harrison % (Auto) Eos % (Auto) Baso % (Auto) Absolute Neuts (auto) Absolute Lymphs (auto) PT INR Sodium 152 H Potassium 3.9 Chloride 124 H Carbon Dioxide 22.0 Anion Gap 6 BUN 25 H Creatinine 1.82 H Estim Creat Clear Calc 40.86 Est GFR (MDRD) Af Amer 48 L Est GFR (MDRD) Non-Af 39 L BUN/Creatinine Ratio 13.7 Glucose 181 H Serum Osmolality Calcium 8.8 Magnesium Urine Osmolality Ur Random Sodium Urine Creatinine POC Glucose 148 H 141 H 02/08/19 02/08/19 02/08/19 01:01 01:58 02:10 WBC RBC Hgb Hct MCV MCH MCHC RDW Std Deviation RDW Coeff of [place] Plt Count MPV Immature Gran % (Auto) Neut % (Auto) Lymph % (Auto) Harrison % (Auto) Eos % (Auto) Baso % (Auto) Absolute Neuts (auto) Absolute Lymphs (auto) PT INR Sodium 152 H Potassium Chloride Carbon Dioxide Anion Gap BUN Creatinine Estim Creat Clear Calc Est GFR (MDRD) Af Amer Est GFR (MDRD) Non-Af BUN/Creatinine Ratio Glucose Serum Osmolality Calcium Magnesium Urine Osmolality Ur Random Sodium Urine Creatinine POC Glucose 148 H 159 H 02/08/19 02/08/19 02/08/19 02:58 03:54 04:00 WBC 7.5 RBC 4.02 L Hgb 11.5 L Hct 36.4 L MCV 90.5 MCH 28.6 MCHC 31.6 L RDW Std Deviation 49.2 H RDW Coeff of [place] 14.7 H Plt Count 121 L MPV 11.1 Immature Gran % (Auto) 0.400 Neut % (Auto) 85.9 H Lymph % (Auto) 7.2 L Harrison % (Auto) 6.4 Eos % (Auto) 0.0 Baso % (Auto) 0.1 Absolute Neuts (auto) 6.4 Absolute Lymphs (auto) 0.54 L PT INR Sodium Potassium Chloride Carbon Dioxide Anion Gap BUN Creatinine Estim Creat Clear Calc Est GFR (MDRD) Af Amer Est GFR (MDRD) Non-Af BUN/Creatinine Ratio Glucose Serum Osmolality Calcium Magnesium Urine Osmolality Ur Random Sodium Urine Creatinine POC Glucose 136 H 139 H 02/08/19 02/08/19 02/08/19 04:00 04:00 04:58 WBC RBC Hgb Hct MCV MCH MCHC RDW Std Deviation RDW Coeff of [place] Plt Count MPV Immature Gran % (Auto) Neut % (Auto) Lymph % (Auto) Harrison % (Auto) Eos % (Auto) Baso % (Auto) Absolute Neuts (auto) Absolute Lymphs (auto) PT 22.6 H INR 2.0 Sodium 154 H Potassium 3.8 Chloride 125 H Carbon Dioxide 22.0 Anion Gap 7 BUN 26 H Creatinine 1.63 H Estim Creat Clear Calc 45.62 Est GFR (MDRD) Af Amer 55 L Est GFR (MDRD) Non-Af 45 L BUN/Creatinine Ratio 16.0 Glucose 143 H Serum Osmolality Calcium 8.7 Magnesium Urine Osmolality Ur Random Sodium Urine Creatinine POC Glucose 149 H 02/08/19 02/08/19 02/08/19 05:55 06:54 08:00 WBC RBC Hgb Hct MCV MCH MCHC RDW Std Deviation RDW Coeff of [place] Plt Count MPV Immature Gran % (Auto) Neut % (Auto) Lymph % (Auto) Harrison % (Auto) Eos % (Auto) Baso % (Auto) Absolute Neuts (auto) Absolute Lymphs (auto) PT INR Sodium 153 H Potassium 3.1 L Chloride 126 H Carbon Dioxide 21.0 Anion Gap 6 BUN 27 H Creatinine 1.58 H Estim Creat Clear Calc 47.07 Est GFR (MDRD) Af Amer 56 L Est GFR (MDRD) Non-Af 46 L BUN/Creatinine Ratio 17.1 Glucose 154 H Serum Osmolality Calcium 8.0 L Magnesium Urine Osmolality Ur Random Sodium Urine Creatinine POC Glucose 143 H 140 H 02/08/19 02/08/19 02/08/19 08:03 09:20 10:11 WBC RBC Hgb Hct MCV MCH MCHC RDW Std Deviation RDW Coeff of [place] Plt Count MPV Immature Gran % (Auto) Neut % (Auto) Lymph % (Auto) Harrison % (Auto) Eos % (Auto) Baso % (Auto) Absolute Neuts (auto) Absolute Lymphs (auto) PT INR Sodium Potassium Chloride Carbon Dioxide Anion Gap BUN Creatinine Estim Creat Clear Calc Est GFR (MDRD) Af Amer Est GFR (MDRD) Non-Af BUN/Creatinine Ratio Glucose Serum Osmolality Calcium Magnesium Urine Osmolality Ur Random Sodium Urine Creatinine POC Glucose 111 H 120 H 114 H 02/08/19 02/08/19 02/08/19 11:06 11:55 12:13 WBC RBC Hgb Hct MCV MCH MCHC RDW Std Deviation RDW Coeff of [place] Plt Count MPV Immature Gran % (Auto) Neut % (Auto) Lymph % (Auto) Harrison % (Auto) Eos % (Auto) Baso % (Auto) Absolute Neuts (auto) Absolute Lymphs (auto) PT INR Sodium 151 H Potassium 3.5 Chloride 121 H Carbon Dioxide 22.0 Anion Gap 8 BUN 26 H Creatinine 1.57 H Estim Creat Clear Calc 47.37 Est GFR (MDRD) Af Amer 57 L Est GFR (MDRD) Non-Af 47 L BUN/Creatinine Ratio 16.6 Glucose 123 H Serum Osmolality Calcium 8.4 L Magnesium Urine Osmolality Ur Random Sodium Urine Creatinine POC Glucose 114 H 111 H 02/08/19 02/08/19 02/08/19 13:06 14:04 15:07 WBC RBC Hgb Hct MCV MCH MCHC RDW Std Deviation RDW Coeff of [place] Plt Count MPV Immature Gran % (Auto) Neut % (Auto) Lymph % (Auto) [place] % (Auto) Eos % (Auto) Baso % (Auto) Absolute Neuts (auto) Absolute Lymphs (auto) PT INR Sodium Potassium Chloride Carbon Dioxide Anion Gap BUN Creatinine Estim Creat Clear Calc Est GFR (MDRD) Af Amer Est GFR (MDRD) Non-Af BUN/Creatinine Ratio Glucose Serum Osmolality Calcium Magnesium Urine Osmolality Ur Random Sodium Urine Creatinine POC Glucose 112 H 116 H 93 02/08/19 02/08/19 02/08/19 16:03 16:05 17:15 WBC RBC Hgb Hct MCV MCH MCHC RDW Std Deviation RDW Coeff of [place] Plt Count MPV Immature Gran % (Auto) Neut % (Auto) Lymph % (Auto) [place] % (Auto) Eos % (Auto) Baso % (Auto) Absolute Neuts (auto) Absolute Lymphs (auto) PT INR Sodium 149 H Potassium 3.5 Chloride 120 H Carbon Dioxide 22.0 Anion Gap 7 BUN 27 H Creatinine 1.55 H Estim Creat Clear Calc 47.98 Est GFR (MDRD) Af Amer 57 L Est GFR (MDRD) Non-Af 47 L BUN/Creatinine Ratio 17.4 Glucose 110 H Serum Osmolality Calcium 8.2 L Magnesium Urine Osmolality Ur Random Sodium Urine Creatinine POC Glucose 103 99 02/08/19 02/08/19 02/08/19 18:04 18:52 20:00 WBC RBC Hgb Hct MCV MCH MCHC RDW Std Deviation RDW Coeff of [place] Plt Count MPV Immature Gran % (Auto) Neut % (Auto) Lymph % (Auto) [place] % (Auto) Eos % (Auto) Baso % (Auto) Absolute Neuts (auto) Absolute Lymphs (auto) PT INR Sodium 145 Potassium 3.8 Chloride 117 H Carbon Dioxide 21.0 Anion Gap 7 BUN 27 H Creatinine 1.52 H Estim Creat Clear Calc 48.93 Est GFR (MDRD) Af Amer 58 L Est GFR (MDRD) Non-Af 48 L BUN/Creatinine Ratio 17.8 Glucose 98 Serum Osmolality Calcium 8.4 L Magnesium Urine Osmolality Ur Random Sodium Urine Creatinine POC Glucose 110 94 02/08/19 02/08/19 02/08/19 20:01 21:02 22:08 WBC RBC Hgb Hct MCV MCH MCHC RDW Std Deviation RDW Coeff of [place] Plt Count MPV Immature Gran % (Auto) Neut % (Auto) Lymph % (Auto) Harrison % (Auto) Eos % (Auto) Baso % (Auto) Absolute Neuts (auto) Absolute Lymphs (auto) PT INR Sodium Potassium Chloride Carbon Dioxide Anion Gap BUN Creatinine Estim Creat Clear Calc Est GFR (MDRD) Af Amer Est GFR (MDRD) Non-Af BUN/Creatinine Ratio Glucose Serum Osmolality Calcium Magnesium Urine Osmolality Ur Random Sodium Urine Creatinine POC Glucose 91 107 120 H 02/08/19 02/09/19 02/09/19 23:12 00:04 00:20 WBC RBC Hgb Hct MCV MCH MCHC RDW Std Deviation RDW Coeff of [place] Plt Count MPV Immature Gran % (Auto) Neut % (Auto) Lymph % (Auto) Harrison % (Auto) Eos % (Auto) Baso % (Auto) Absolute Neuts (auto) Absolute Lymphs (auto) PT INR Sodium 145 Potassium 3.7 Chloride 117 H Carbon Dioxide 21.0 Anion Gap 7 BUN 28 H Creatinine 1.53 H Estim Creat Clear Calc 48.61 Est GFR (MDRD) Af Amer 58 L Est GFR (MDRD) Non-Af 48 L BUN/Creatinine Ratio 18.3 Glucose 111 H Serum Osmolality Calcium 7.9 L Magnesium Urine Osmolality Ur Random Sodium Urine Creatinine POC Glucose 105 114 H 02/09/19 02/09/19 02/09/19 02:18 03:13 04:01 WBC RBC Hgb Hct MCV MCH MCHC RDW Std Deviation RDW Coeff of [place] Plt Count MPV Immature Gran % (Auto) Neut % (Auto) Lymph % (Auto) Harrison % (Auto) Eos % (Auto) Baso % (Auto) Absolute Neuts (auto) Absolute Lymphs (auto) PT INR Sodium Potassium Chloride Carbon Dioxide Anion Gap BUN Creatinine Estim Creat Clear Calc Est GFR (MDRD) Af Amer Est GFR (MDRD) Non-Af BUN/Creatinine Ratio Glucose Serum Osmolality Calcium Magnesium Urine Osmolality Ur Random Sodium Urine Creatinine POC Glucose 99 105 105 02/09/19 04:17 WBC RBC Hgb Hct MCV MCH MCHC RDW Std Deviation RDW Coeff of [place] Plt Count MPV Immature Gran % (Auto) Neut % (Auto) Lymph % (Auto) Harrison % (Auto) Eos % (Auto) Baso % (Auto) Absolute Neuts (auto) Absolute Lymphs (auto) PT INR Sodium 145 Potassium 3.7 Chloride 116 H Carbon Dioxide 19.0 L Anion Gap 10 BUN 30 H Creatinine 1.56 H Estim Creat Clear Calc 47.67 Est GFR (MDRD) Af Amer 57 L Est GFR (MDRD) Non-Af 47 L BUN/Creatinine Ratio 19.2 Glucose 112 H Serum Osmolality Calcium 8.0 L Magnesium Urine Osmolality Ur Random Sodium Urine Creatinine POC Glucose Microbiology 02/05/19 13:30 Blood Culture (Wb) - Left Forearm Bacteria Detection (PCR) - Final Staphylococcus aureus 02/05/19 13:30 Blood Culture (Wb) - Left Forearm Blood Culture - Final Staphylococcus aureus 02/05/19 13:40 Blood Culture (Wb) - Right Wrist Blood Culture - Final Staphylococcus aureus 02/07/19 09:40 Blood Culture (Wb) - Right Wrist Blood Culture - Preliminary Staphylococcus aureus 02/07/19 09:45 Blood Culture (Wb) - Right Hand Blood Culture - Preliminary Staphylococcus aureus 02/06/19 11:00 Blood Culture (Wb) - Venous Blood Culture - Preliminary Staphylococcus aureus 02/06/19 08:50 Blood Culture (Wb) - Anticubital Right Blood Culture - Preliminary Staphylococcus aureus Clinical Impression(s) from Imaging Studies Brain CT 02/05/19 13:17 IMPRESSION: Chronic involutional changes of the brain. Electronically Signed: Maikel Cabrerademian, at 14:56 EDT , Service support , Chest X-Ray 02/05/19 13:17 IMPRESSION: Findings suggestive of a mild degree of CHF with blunting of both costophrenic angles and bibasilar atelectasis. Electronically Signed: Maikel Mart, at 14:51 EDT , Service support , Medical Necessity - Tobacco Use Smoking Status: Unknown if ever smoked Tobacco Use: - - Unknown tobacco history-patient not able to provide Assessment/Plan All Active Problems Hyperosmolar coma due to secondary diabetes (Acute) Hypernatremia (Acute) MSSA bacteremia (Acute) Hypoglycemia (Resolved) Hypothermia (Resolved) Altered mental state (Acute) Acute osteomyelitis of metacarpal bone (Resolved) Osteomyelitis of toe of right foot (Resolved) Right 2nd toe suspected osteomyelitis (Resolved) Right 2nd toe gangrene (Resolved) RECOMMENDATIONS: 1. Given that MRI is currently down, recommend obtaining CT T and L-spine. 2. Redraw blood cultures today. 3. Obtain ID consultation. 4. Continue cefazolin but increase dose to 2 g every 8 hours. 5. Obtain speech therapy consultation. 6. Physical therapy to work with the patient today. IMPRESSIONS: 1. Hyperosmolar hyperglycemic state Improved at this time with aggressive volume resuscitation and continuous insulin infusion. Given that the patient's metabolic derangements have corrected at this time, dextrose containing supplemental IV fluids will be discontinued. The patient can be started on a basal insulin regimen along with sliding scale coverage. 2. Acute metabolic encephalopathy Likely related to underlying infectious etiology coupled with metabolic derangements in the setting of #1. The patient's mentation has improved with correction of his underlying metabolic derangements and with treatment of his bacteremia. Recommend avoiding sedating medications. Continue management of hyperglycemia as noted above. 3. MSSA bacteremia Source remains unclear at this time. Given the patient's complaints of back pain, recommend dedicated imaging be obtained. Given that our MRI is currently down in the patient's history of foreign body objects is unclear, CT will be obtained first. If findings are concerning for underlying paraspinal infection/osteomyelitis, will obtain MRI at that time. Plan to redraw blood cultures today. Infectious diseases consultation is currently pending. 4. Hypernatremia/hyperchloremia Improved following free water replacement. Serial BMPs can be discontinued. Continue to monitor on a daily basis from this point forward. 5. Coronary artery disease/paroxysmal atrial fibrillation Plan to resume PO rate/rhythm control strategy, once speech therapy has evaluated the patient. 6. Questionable obstructive lung disease/hyperlipidemia/hypertension/history of osteomyelitis Complicates care, management, recovery and prognosis. Continue as needed aerosol treatments for now. Home medications can be resumed once speech therapy has evaluated patient. This note was generated with [employer] dictation software. It may contain incorrect words, spelling, and punctuation that were not noted in checking the note before signing. Code Visit Inpatient E&M: 42587 [facility]
[2019-02-09 06:55] LABS: Bedside Glucose 112 mg/dL (70-110)
--- NOTE | 2019-02-09 07:25 | PCM.PROGNOTE ---
Patient Problems: Active and Suspected Problems Hyperosmolar coma due to secondary diabetes (Acute) Hypernatremia (Acute) MSSA bacteremia (Acute) Subjective: Day #4 antibiotics-Ancef The patient is a 69-year-old male with a past medical history of paroxysmal atrial fibrillation, coronary artery disease with PCI and 2002 in 2008, diabetes mellitus type 2, chronic anticoagulation with warfarin, hypertension,RHONDA , peripheral vascular disease, hyperlipidemia, left carotid stenosis, orthostatic hypotension and chronic renal failure who presented to [facility] emergency department on 02/05/2019 by squad with a complaint of decreased mental status. Lab in the emergency department showed a white blood cell count of 13.8 with 89% neutrophils. Hemoglobin was low at 12.2 and platelets were within normal limits. He had macrocytic indices. INR was subtherapeutic at 1.9. Sodium was low at 129 and the serum bicarb was low at 19. The BUN was 62 with a creatinine of 3.17 and a creatinine clearance of only 22. The last creatinine we have on him is from 2016 and at that time it ranged from 1.57-2.16. The serum glucose was 1566. Lactic acid was 2. Troponin was within normal limits. Urine had 0 WBCs and 0 RBCs. There was a small amount of acetone in the blood. He c/o chronic low back pain. He takes Tylenol for pain. No recent epidurals. Denies SOB, chest pain, nausea,abdominal pain. He does have a bad taste in his mouth and he has painful swallowing. A noncontrasted CT of the brain showed involutional changes only with no acute findings. Chest x-ray was reported as being suggestive of a mild degree of CHF with blunting of both costophrenic angles and bibasilar atelectasis. He was admitted to the intensive care unit with a diagnosis of hyperosmolar nonketotic hyperglycemia and started on an insulin drip and fluid hydration. Dr. Irene was consulted to participate in management. An echocardiogram was obtained and showed a 65% EF with no wall motion abnormalities. There was stage II diastolic dysfunction and trivial TR. The left and right atrium were normal. The right ventricular systolic pressure was estimated at 29. There were no vegetations present. Blood cultures from 02/05, 02/06, and 02/07 for all positive for methicillin sensitive staph aureus. No source of infection was identified. All events the past 24 hours been reviewed. Afebrile Blood pressure is adequately controlled. Respiratory rate has ranged from 26-32 over the past 3 hours. He is maintaining an appropriate oxygen saturation on BiPAP with no oxygen bleed in. Fluid balance on 02/08/2019 was +2891. Fluid balance since admission is +9650. Urine output on 02/08/2019 was 1775. All lab was personally reviewed. Hypernatremia has resolved and the sodium today is 145. Serum bicarb is 19 and the chloride is increased at 116. BUN is 30 with a stable creatinine of 1.56, down from 3.17 at admission. Blood sugars are in good control. Blood cultures from 02/05, 02/06 and 02/07 are all positive for MSSA. Surface echocardiogram done 02/05/2019 showed EF of 65%, stage II diastolic dysfunction, no significant valvular heart disease, no vegetations and the right ventricular systolic pressure estimated to be 29. He sees A Dr. Shaun Muse for cardiology and has been on Dronedarone for AF. His PCP is Dr. Petersen in [place]. The last note we have from Dr. Muse is dated 09/24/2017. He has been NPO since admission and has not had Multaq or coumadin. He is only on heparin 5,000 units Q 12H for DVT prophylaxis and he is in AF with RVR. - Physical Exam General: Alert, Cooperative, No apparent distress, - - CAM negative HEENT: Atraumatic, PERRLA, EOMI, Normocephalic Oral: Dry Mucosa, - - tongue is coated with white yellow adherent stuff. There is PND in the posterior phyarnx and erythema.......no exudate Neck: Supple, Negative Carotid Bruits, No Nuchal Rigidity, Trachea Midline Lungs: Clear to auscultation - anterior and lateral, Tachypneic Cardiovascular: - - AF on the tele monitor. HR is better today and in the 90's to 105 Abdomen: Bowel Sounds Present, Soft, Non Tender, Non-Distended Extremities: No clubbing, No cyanosis, No Calf Tenderness, Diminished Peripheral Pulses - in the feet, radial pulses are 3/3, - - nail beds are pale Skin: No rashes, - - he has scabs on the upper extremities.....no evidence of infection. there are no open areas on the back and he has pain with rolling him on his side but can not localize to any `1 specific area with palpation over the vertebrae. No redness and no areas of increased warmth Musculoskeletal: Arthritic Changes Neurological: Cranial nerves II-XII grossly intact, Neuro grossly intact Psych/Mental Status: Appropriate, Flat Affect Vital Signs Temp Pulse Resp BP Pulse Ox 97.9 F 83 26 H 135/65 H 98 02/09/19 04:00 02/09/19 06:35 02/09/19 06:35 02/09/19 06:12 02/09/19 06:35 Oxygen Flow Rate (L/min) 2 Oxygen Delivery Method Bi-pap Weight: 190 lb 14.725 oz Body Mass Index (BMI) 24.5 Finger Stick Blood Glucose 107 Intake and Output for Last 24 Hours 02/07/19 02/08/19 02/09/19 23:59 23:59 23:59 Intake Total 3500.16 / 3597.73 4666.15 / 4666.15 2026.9 / 2026.9 Output Total 900 / 1400 1775 / 2350 775 / 775 Balance 2600.16 / 2197.73 2891.15 / 2316.15 1251.9 / 1251.9 Microbiology Past 72 Hours 02/05/19 13:30 Bacteria Detection (PCR) - Final Blood Culture (Wb) - Left Forearm Staphylococcus aureus Blood Culture - Final Staphylococcus aureus 02/05/19 13:40 Blood Culture - Final Blood Culture (Wb) - Right Wrist Staphylococcus aureus 02/07/19 09:40 Blood Culture - Preliminary Blood Culture (Wb) - Right Wrist Staphylococcus aureus 02/07/19 09:45 Blood Culture - Preliminary Blood Culture (Wb) - Right Hand Staphylococcus aureus 02/06/19 11:00 Blood Culture - Preliminary Blood Culture (Wb) - Venous Staphylococcus aureus 02/06/19 08:50 Blood Culture - Preliminary Blood Culture (Wb) - Anticubital Right Staphylococcus aureus Laboratory Tests Past 24 Hrs 02/08/19 02/08/19 02/08/19 08:00 11:55 16:05 Sodium 153 H 151 H 149 H Potassium 3.1 L 3.5 3.5 Chloride 126 H 121 H 120 H Carbon Dioxide 21.0 22.0 22.0 Anion Gap 6 8 7 BUN 27 H 26 H 27 H Creatinine 1.58 H 1.57 H 1.55 H Estim Creat Clear Calc 47.07 47.37 47.98 Est GFR (MDRD) Af Amer 56 L 57 L 57 L Est GFR (MDRD) Non-Af 46 L 47 L 47 L BUN/Creatinine Ratio 17.1 16.6 17.4 Glucose 154 H 123 H 110 H Calcium 8.0 L 8.4 L 8.2 L 02/08/19 02/09/19 02/09/19 20:00 00:20 04:17 Sodium 145 145 145 Potassium 3.8 3.7 3.7 Chloride 117 H 117 H 116 H Carbon Dioxide 21.0 21.0 19.0 L Anion Gap 7 7 10 BUN 27 H 28 H 30 H Creatinine 1.52 H 1.53 H 1.56 H Estim Creat Clear Calc 48.93 48.61 47.67 Est GFR (MDRD) Af Amer 58 L 58 L 57 L Est GFR (MDRD) Non-Af 48 L 48 L 47 L BUN/Creatinine Ratio 17.8 18.3 19.2 Glucose 98 111 H 112 H Calcium 8.4 L 7.9 L 8.0 L POC Glucose 02/09/19 02/09/19 02/09/19 06:10 04:01 03:13 POC Glucose 112 H 105 105 02/09/19 02/09/19 02/08/19 02:18 00:04 23:12 POC Glucose 99 114 H 105 02/08/19 02/08/19 02/08/19 22:08 21:02 20:01 POC Glucose 120 H 107 91 02/08/19 02/08/19 02/08/19 18:52 18:04 17:15 POC Glucose 94 110 99 02/08/19 02/08/19 02/08/19 16:03 15:07 14:04 POC Glucose 103 93 116 H 02/08/19 02/08/19 02/08/19 13:06 12:13 11:06 POC Glucose 112 H 111 H 114 H 02/08/19 02/08/19 02/08/19 10:11 09:20 08:03 POC Glucose 114 H 120 H 111 H 02/08/19 02/08/19 02/08/19 06:54 05:55 04:58 POC Glucose 140 H 143 H 149 H 02/08/19 03:54 POC Glucose 139 H Medical Necessity - Tobacco Use Smoking Status: Unknown if ever smoked Tobacco Use: - - Unknown tobacco history-patient not able to provide Assessment/Plan All Active Problems Hyperosmolar coma due to secondary diabetes (Acute) Hypernatremia (Acute) MSSA bacteremia (Acute) Hypoglycemia (Resolved) Hypothermia (Resolved) Altered mental state (Acute) Acute osteomyelitis of metacarpal bone (Resolved) Osteomyelitis of toe of right foot (Resolved) Right 2nd toe suspected osteomyelitis (Resolved) Right 2nd toe gangrene (Resolved) Impressions 1. Severe sepsis with 6 of 6 BC's + for MSSA. No source identified since admission. No vegetations on ECHO. He is c/o back pain. CT scan of the thoracic and lumbar spine were ordered today and showed paravertebral inflammation and edema of the right greater than left psoas muscles at the level of L1-2 highly suspicious for myositis. There was osteomyelitis/discitis at L1-2 with marked involvement of the L1 inferior endplate very little apparent involvement of L2. Thecal sac was not well delineated and epidural abscess could not be excluded. MRI was recommended with and without gadolinium. MRI has been ordered but has not been done yet. On Ancef - dose was increased today for bacteremia. BC's reordered today. 2. Hyperosmolar nonketotic hyperglycemia with a hemoglobin A1c of 12.8. Insulin drip has been discontinued and he has been started on a diet with pureed foods and nectar thick liquids. 3. PAF with RVR - off Multaq and Warfarin since admission. Has been getting IV Lopressor 5 mg Q 6H for rate control. No cardiology consult. I spoke with Dr. Godinez and he will see the pt in consult. BP after the most recent dose of IV Lopressor is 92 systolic. He is going to start PO Metoprolol tonight. I do not feel at this time that we can add Cardizem because of the BP. After discussion with Dr. Godinez will start Amiodarone infusion. Monitor the QT interval closely. 4. Thrush with odonophagia - suspect he may have esophageal candidiasis. IV Diflucan at renal dose prescribed. 5. CAD with hx of PCI in 2oo2 and 2005. 6. Metabolic encephalopathy due to her hyperosmolar nonketotic hyperglycemia and sepsis with MSSA bacteremia 7. Diabetes mellitus type 2-uncontrolled 8. Acute injury on chronic renal failure stage III 9. Hypernatremia-resolved 10. Hypokalemia-resolved 11. RHONDA-on BiPAP at night and requires no O2 bleed in. On room air during the day and maintaining appropriate oxygen saturation 12. Chronic anticoagulation with warfarin-only on DVT prophylaxis since admission 13. Status post amputation of the right second toe due to osteomyelitis Consult ordered with Dr. Rodgers. If he has an epidural abscess I suspect he will need to be transferred to a tertiary facility for surgery/drainage of the abscess. Code Visit Inpatient E&M: 50500 [facility] Hosp L3
[2019-02-09 08:10] LABS: Bedside Glucose 84 mg/dL (70-110)
--- NOTE | 2019-02-09 09:22 | CASEMGMT ---
Addendum entered by Nataliya Slater 02/09/19 12:36: Pt's called in, SW spoke w/her on the phone. SW let her know that SW spoke w/pt about going somewhere for rehab and pt had said if he has to go somewhere he would be agreeable to TCU. SW explained to the that we will need to see if TCU will have a bed when pt is ready for discharge. SW also explained that SW left a list of nursing homes in the room in the event we need to pick a second choice. states understanding. SW will continue to follow. HENRRY Murphy Addendum entered by Nataliya Slater 02/09/19 10:34: SW spoke w/Fannie in TCU, she may have a bed by Saturday or for pt in TCU, will let SW know this afternoon. HENRRY Murphy Original Note: SW participated in ICU rounds. PT/OT/ST pending. SW will continue to follow for discharge needs. SW did speak w/pt in regard to discharge plans in the event a SNF is needed. Pt has been to [facility], and to [facility]. SW did leave a list of nursing homes in the room for pt if needed. Pt at this time states if needed he would prefer TCU. SW explained will put his name on the TCU if rehab is indeed needed for pt. SW left message on referral phone. SW will continue to follow. HENRRY Murphy
[2019-02-09 09:30] LABS: Bedside Glucose 76 mg/dL (70-110)
--- NOTE | 2019-02-09 09:40 | CT_ITS ---
We are attempting to reach an attending provider to discuss findings. An addendum with communication details will be sent when the communication is complete. STUDY: CT LUMBAR SPINE WITHOUT CONTRAST REASON FOR EXAM: Male, 69 years old. Back pain with MSSA bacteremia. TECHNIQUE: Axial images of the lumbar spine were obtained. Sagittal and coronal images were reconstructed. Individualized dose optimization techniques were used for this CT. COMPARISON: None FINDINGS: Destruction of the inferior aspect of the L1 vertebral body, extending cephalad from the endplate, with sclerosis of the vertebral body surrounding this process. Peripheral splaying of the fragmented inferior endplate and inferior aspect of the L1 vertebral body. This process extends to the left and right posterior corners of the vertebral body; the remainder of the posterior endplate is intact. The thecal sac is not well delineated at this level and epidural abscess cannot be excluded. Prevertebral inflammatory changes and mild adenopathy are seen at this level. Mild sclerosis of the left aspect of the L2 vertebral body with no L2 superior endplate destruction. Prominent Schmorl's node left posterior, central aspect L2 inferior endplate. No evidence of spinal infection at other levels. No other acute osseous abnormality. At L2-3, L3-4, L4-5 and L5-S1 diffuse disc bulge and moderate facet degeneration cause at least mild spinal canal and mild bilateral foraminal narrowing. No other acute finding in the paraspinal soft tissues. Dense calcific atherosclerosis partially visible. CT/Spine Lumbar without Contrast IMPRESSION: Osteomyelitis/discitis at L1-2. Somewhat atypical presentation with marked involvement of the L1 inferior endplate but very little apparent involvement of L2. Prominent paraspinal and prevertebral inflammation. Thecal sac is not well delineated at this level and epidural abscess cannot be excluded. If not contraindicated, MRI thoracic and lumbar spine with and without gadolinium should be obtained. Electronically Signed: Magdiel Strickland, at 11:16 EDT Tel , Service support ,
--- NOTE | 2019-02-09 09:40 | CT_ITS ---
STUDY: CT THORACIC SPINE WITHOUT CONTRAST REASON FOR EXAM: Male, 69 years old. TECHNIQUE: Axial images of the thoracic spine were acquired without IV contrast. Multiplanar reformats provided. Individualized dose optimization techniques were used for this CT. COMPARISON: None. FINDINGS: No fracture or dislocation of the thoracic spine. No endplate destruction. Alignment anatomic. No evidence of significant spinal canal or foraminal narrowing. Prominent anterior osteophytes extend from T4 throughout the remainder of the thoracic spine. Atherosclerosis and calcified left hilar lymph nodes, dependent densities right greater than left lung bases partially visible. Calcified granuloma left lower lobe. Destructive process L2 inferior endplate partially visible, please see CT lumbar spine report. CT/Spine Thoracic without Contras IMPRESSION: No acute abnormality of the thoracic spine. L1-2 osteomyelitis discitis partially visible, please see CT lumbar spine report. Dependent densities likely in left lung bases; most likely atelectasis with pneumonia possible. Electronically Signed: Magdiel Strickland, at 11:20 EDT Tel , Service support ,
[2019-02-09] MEDS: Heparin Injection (Vial) 5,000 UNIT/ML VIAL 5000 UNIT SC ×2 (09:49→22:08)
[2019-02-09 10:11] LABS: Bedside Glucose 70 mg/dL (70-110)
[2019-02-09 10:24] LABS: Hemoglobin A1c 12.8 % (4.2-6.3)
[2019-02-09 10:32] LABS: AST(SGOT) 62 U/L (15-37); Alanine Aminotransfer ALT/SGPT 19 U/L (16-61); Albumin, Serum 1.5 g/dL (3.2-5.0); Alkaline Phosphatase 79 U/L (45-117); Bilirubin, Direct 0.12 mg/dL (0.00-0.30); Globulin 4.5 g/dL (2.2-4.2); Magnesium 1.6 mg/dL (1.6-2.6); Phosphorus 0.8 mg/dL (2.5-4.9)
--- NOTE | 2019-02-09 11:56 | PCM.PN.REN ---
Patient Problems: Active and Suspected Problems Hyperosmolar coma due to secondary diabetes (Acute) Hypernatremia (Acute) Subjective: no new complaints - Physical Exam General: Alert, Cooperative HEENT: Atraumatic, PERRLA, EOMI, Normocephalic Neck: Supple, No JVD, Negative Carotid Bruits Lungs: Clear to auscultation, Normal air movement Cardiovascular: Regular rate, No murmurs Abdomen: Bowel Sounds Present, Soft, Non Tender Extremities: No edema, Capillary Refill Less than 3 Seconds Skin: No rashes, No breakdown Musculoskeletal: No Tenderness to Palpation of Joints or Extremities Neurological: Cranial nerves II-XII grossly intact Psych/Mental Status: Normal Affect, Appropriate Vital Signs Temp Pulse Resp BP Pulse Ox 97.9 F 96 30 H 117/63 98 02/09/19 08:00 02/09/19 08:00 02/09/19 08:00 02/09/19 08:00 02/09/19 08:40 Oxygen Flow Rate (L/min) 2 Oxygen Delivery Method Room Air Weight: 86.6 kg Body Mass Index (BMI) 24.5 Finger Stick Blood Glucose 76 Intake and Output for Last 24 Hours 02/07/19 02/08/19 02/09/19 23:59 23:59 23:59 Intake Total 3500.16 / 3597.73 4666.15 / 4666.15 2475.00 / 2475.00 Output Total 900 / 1400 1775 / 2350 775 / 775 Balance 2600.16 / 2197.73 2891.15 / 2316.15 1700.00 / 1700.00 Microbiology Past 72 Hours 02/05/19 13:30 Bacteria Detection (PCR) - Final Blood Culture (Wb) - Left Forearm Staphylococcus aureus Blood Culture - Final Staphylococcus aureus 02/05/19 13:40 Blood Culture - Final Blood Culture (Wb) - Right Wrist Staphylococcus aureus 02/07/19 09:40 Blood Culture - Preliminary Blood Culture (Wb) - Right Wrist Staphylococcus aureus 02/07/19 09:45 Blood Culture - Preliminary Blood Culture (Wb) - Right Hand Staphylococcus aureus 02/06/19 11:00 Blood Culture - Preliminary Blood Culture (Wb) - Venous Staphylococcus aureus 02/06/19 08:50 Blood Culture - Preliminary Blood Culture (Wb) - Anticubital Right Staphylococcus aureus Laboratory Tests Past 24 Hrs 02/08/19 02/08/1902/08/19 11:55 16:05 20:00 Sodium 151 H 149 H 145 Potassium 3.5 3.5 3.8 Chloride 121 H 120 H 117 H Carbon Dioxide 22.0 22.0 21.0 Anion Gap 8 7 7 BUN 26 H 27 H 27 H Creatinine 1.57 H 1.55 H 1.52 H Estim Creat Clear Calc 47.37 47.98 48.93 Est GFR (MDRD) Af Amer 57 L 57 L 58 L Est GFR (MDRD) Non-Af 47 L 47 L 48 L BUN/Creatinine Ratio 16.6 17.4 17.8 Glucose 123 H 110 H 98 Hemoglobin A1c Calcium 8.4 L 8.2 L 8.4 L Phosphorus Magnesium Total Bilirubin Direct Bilirubin AST ALT Alkaline Phosphatase Total Protein Albumin Globulin 02/09/19 02/09/19 02/09/19 00:20 04:17 04:17 Sodium 145 145 Potassium 3.7 3.7 Chloride 117 H 116 H Carbon Dioxide 21.0 19.0 L Anion Gap 7 10 BUN 28 H 30 H Creatinine 1.53 H 1.56 H Estim Creat Clear Calc 48.61 47.67 Est GFR (MDRD) Af Amer 58 L 57 L Est GFR (MDRD) Non-Af 48 L 47 L BUN/Creatinine Ratio 18.3 19.2 Glucose 111 H 112 H Hemoglobin A1c Calcium 7.9 L 8.0 L Phosphorus 0.8 L* Magnesium 1.6 Total Bilirubin 0.50 Direct Bilirubin 0.12 AST 62 H ALT 19 Alkaline Phosphatase 79 Total Protein 6.0 L Albumin 1.5 L Globulin 4.5 H 02/09/19 04:17 Sodium Potassium Chloride Carbon Dioxide Anion Gap BUN Creatinine Estim Creat Clear Calc Est GFR (MDRD) Af Amer Est GFR (MDRD) Non-Af BUN/Creatinine Ratio Glucose Hemoglobin A1c 12.8 H Calcium Phosphorus Magnesium Total Bilirubin Direct Bilirubin AST ALT Alkaline Phosphatase Total Protein Albumin Globulin POC Glucose 02/09/19 02/09/19 02/09/19 10:05 09:25 08:08 POC Glucose 70 76 84 02/09/19 02/09/19 02/09/19 06:10 04:01 03:13 POC Glucose 112 H 105 105 02/09/19 02/09/19 02/08/19 02:18 00:04 23:12 POC Glucose 99 114 H 105 02/08/19 02/08/19 02/08/19 22:08 21:02 20:01 POC Glucose 120 H 107 91 02/08/19 02/08/19 02/08/19 18:52 18:04 17:15 POC Glucose 94 110 99 02/08/19 02/08/19 02/08/19 16:03 15:07 14:04 POC Glucose 103 93 116 H 02/08/19 02/08/19 13:06 12:13 POC Glucose 112 H 111 H Medical Necessity - Tobacco Use Smoking Status: Unknown if ever smoked Tobacco Use: - - Unknown tobacco history-patient not able to provide Assessment/Plan All Active Problems Hyperosmolar coma due to secondary diabetes (Acute) Hypernatremia (Acute) Hypoglycemia (Resolved) Hypothermia (Resolved) Altered mental state (Acute) Acute osteomyelitis of metacarpal bone (Resolved) Osteomyelitis of toe of right foot (Resolved) Right 2nd toe suspected osteomyelitis (Resolved) Right 2nd toe gangrene (Resolved) 1- Hypernatremia due to hyperglycemia correction. sodium is better at 145 today. 2- BRIDGETT on CKD . likely prerenal from hyperglycemia induced osmotic diuresis Cr peaked at 3.1 . Cr improved to 1.5 mg/dl which is might be his baseline Nonoliguric Keep MAP > 65 3- Hyperglycemic non ketotic hyperosmolar status Pt presented with BS > 1500. improved with IVF and insulin Continue to monitor Glucose level while on D5W 4- Bacteremia: MSSA. on cefazolin
[2019-02-09 12:20] LABS: Bedside Glucose 135 mg/dL (70-110)
--- NOTE | 2019-02-09 13:50 | RAD_ITS ---
STUDY: X-RAY - RIGHT TIBIA AND FIBULA REASON FOR EXAM: Male, 69 years old. Evaluate for foreign body prior to MRI. TECHNIQUE: 2 view(s) of the tibia and fibula were obtained. COMPARISON: None. FINDINGS: No apparent radiopaque foreign body. No apparent acute fracture. No osseous destruction. Chronic healed distal fibular fracture. Alignment anatomic. Mild degenerative changes. Soft tissues unremarkable. RAD/Tibia & Fibula 2 Views IMPRESSION: No acute osseous abnormality. No apparent radiopaque foreign body. Electronically Signed: Magdiel Strickland, at 14:34 EDT Tel , Service support ,
--- NOTE | 2019-02-09 13:50 | RAD_ITS ---
STUDY: X-RAY - RIGHT FEMUR REASON FOR STUDY: Male, 69 years old. Evaluate for metallic foreign body prior to MRI. TECHNIQUE: 1 view(s) of the femur. COMPARISON: None. FINDINGS: No radiopaque foreign body. No visible fracture. No osseous destruction. Alignment anatomic. Mild degenerative changes. Soft tissues unremarkable. RAD/Femur 1 view IMPRESSION: No acute osseous abnormality. No radiopaque foreign body is evident. Electronically Signed: Magdiel Strickland, at 14:33 EDT Tel , Service support ,
--- NOTE | 2019-02-09 14:41 | CON.PCM_ITS ---
Problem List (1) MSSA bacteremia Status: Acute Reason for Consult: mssa Consulted by: Dr. Estrada History of Present Illness: The patient is a 69 year old M with DM, prior foot osteo, presented 02/05 with altered mental status. Glucose was over 1500. He does not recall what happened around that time. Does report lower back pain for past month, had been seeing his chiropractor for it. No fever or chills. No other joint pain. Admitted on insulin gtt, bcx x2 turned (+), started on vanc, changed to cefazolin. Now CT spine shows L1-2 osteo/discitis. No fever, no n/v/d. Full ROS performed and neg except as noted above. - Medical History Past Medical History (Chronic Problems): Chronic Problems HTN (hypertension) (Chronic) Obesity (BMI 30-39.9) (Chronic) Hyperlipidemia (Chronic) Chronic back pain (Chronic) Chronic 2nd toe ulcer (Chronic) Chronic renal disease, stage III (Chronic) Coronary artery disease (Chronic) Status post stents Diabetic peripheral neuropathy (Chronic) Type II diabetes mellitus (Chronic) not adequately controlled, HGBA1C is 8 Paroxysmal atrial fibrillation (Chronic) Allergies/Adverse Reactions: Allergies mushroom Allergy (Verified 01/12/17 23:26) Unknown Home Medications: Ambulatory Orders Medication Instructions Recorded Atorvastatin Calcium [Lipitor] 40 mg PO QHS 03/25/14 Clopidogrel Bisulfate [Plavix] 75 mg PO DAILY 03/25/14 Isosorbide Mononitrate [Isosorbide 30 mg PO DAILY 07/08/14 Mononitrate ER] Linagliptin [Tradjenta] 5 mg PO DAILY 12/06/15 Acetaminophen [Tylenol Tablet] 650 mg PO Q6H PRN PRN #0 tablet 12/14/15 Albuterol Inhaler [Ventolin Hfa] 2 puff INHALATION Q4H PRN PRN #1 12/14/15 Gabapentin [Neurontin] 300 mg PO BIDCM capsule 12/14/15 Nitroglycerin (INPATIENT USE) 0.4 mg SUBLINGUAL Q5M PRN #0 tablet 12/14/15 [Nitrostat] Furosemide [Lasix] 20 mg PO BIDLX 01/13/17 Metoprolol Tartrate [Lopressor 12.5 mg PO BID 01/13/17 (beta cordelia)] Warfarin [Coumadin] 5 mg PO MOWEFRSA 01/13/17 Warfarin [Coumadin] 12.5 mg PO SUTUTH 01/13/17 Budesonide/Formoterol Fumarate 2 puff INHALATION BID 02/05/19 [Symbicort 80-4.5 Mcg Inhaler] Dronedarone Hydrochloride [Multaq] 400 mg PO BID 02/05/19 Famotidine 40 mg PO DAILY 02/05/19 Fluticasone 0.05% [Flonase Nasal 1 spray NARES BID 02/05/19 [place]] Insulin Aspart [Novolog Flexpen] 30 units SUBCUT TIDCM 02/05/19 Insulin Detemir [Levemir FlexPen] 25 units SUBCUT BID 02/05/19 - Social History SMOKING STATUS:: Former smoker - short lived smoking over 40 hrs ago Vital Signs Temp Pulse Resp BP Pulse Ox 99.3 F H 108 H 37 H 128/76 H 98 02/09/19 12:00 02/09/19 13:00 02/09/19 13:00 02/09/19 13:00 02/09/19 13:00 Oxygen Flow Rate (L/min) 2 Oxygen Delivery Method Room Air Weight: 86.6 kg Body Mass Index (BMI) 24.5 Finger Stick Blood Glucose 76 Microbiology Past 72 Hours 02/05/19 13:30 Bacteria Detection (PCR) - Final Blood Culture (Wb) - Left Forearm Staphylococcus aureus Blood Culture - Final Staphylococcus aureus 02/05/19 13:40 Blood Culture - Final Blood Culture (Wb) - Right Wrist Staphylococcus aureus 02/07/19 09:40 Blood Culture - Preliminary Blood Culture (Wb) - Right Wrist Staphylococcus aureus 02/07/19 09:45 Blood Culture - Preliminary Blood Culture (Wb) - Right Hand Staphylococcus aureus 02/06/19 11:00 Blood Culture - Preliminary Blood Culture (Wb) - Venous Staphylococcus aureus 02/06/19 08:50 Blood Culture - Preliminary Blood Culture (Wb) - Anticubital Right Staphylococcus aureus Laboratory Tests Past 24 Hrs 02/08/19 02/08/19 02/09/19 16:05 20:00 00:20 Sodium 149 H 145 145 Potassium 3.5 3.8 3.7 Chloride 120 H 117 H 117 H Carbon Dioxide 22.0 21.0 21.0 Anion Gap 7 7 7 BUN 27 H 27 H 28 H Creatinine 1.55 H 1.52 H 1.53 H Estim Creat Clear Calc 47.98 48.93 48.61 Est GFR (MDRD) Af Amer 57 L 58 L 58 L Est GFR (MDRD) Non-Af 47 L 48 L 48 L BUN/Creatinine Ratio 17.4 17.8 18.3 Glucose 110 H 98 111 H Hemoglobin A1c Calcium 8.2 L 8.4 L 7.9 L Phosphorus Magnesium Total Bilirubin Direct Bilirubin AST ALT Alkaline Phosphatase Total Protein Albumin Globulin 02/09/19 02/09/19 02/09/19 04:17 04:17 04:17 Sodium 145 Potassium 3.7 Chloride 116 H Carbon Dioxide 19.0 L Anion Gap 10 BUN 30 H Creatinine 1.56 H Estim Creat Clear Calc 47.67 Est GFR (MDRD) Af Amer 57 L Est GFR (MDRD) Non-Af 47 L BUN/Creatinine Ratio 19.2 Glucose 112 H Hemoglobin A1c 12.8 H Calcium 8.0 L Phosphorus 0.8 L* Magnesium 1.6 Total Bilirubin 0.50 Direct Bilirubin 0.12 AST 62 H ALT 19 Alkaline Phosphatase 79 Total Protein 6.0 L Albumin 1.5 L Globulin 4.5 H - Other Studies Radiology: [] reviewed Other Studies: [] Route of nutrition/ use of supplements: [] Nutritional Intake: [] IV Site: [] [place] Catheter: [] - Physical Exam General: Alert, Oriented x3, Cooperative, No apparent distress HEENT: Atraumatic, PERRLA, EOMI Neck: Supple, No Nodes Lungs: Clear to auscultation, Normal air movement Cardiovascular: Irregular Rate, Murmur Abdomen: Soft, Non Tender, Non-Distended, Obese Extremities: Edema Skin: No rashes, - - no splinter hemorrhages on hands or feet IV Site: Peripheral, without redness Musculoskeletal: No Tenderness to Palpation of Joints or Extremities, - - moderate lumbar back pain to palpation Neurological: Cranial nerves II-XII grossly intact - Assessment/Plan Antibiotics: [] Assessment/Plan: [] Active and Suspected Problems Hyperosmolar coma due to secondary diabetes (Acute) Hypernatremia (Acute) MSSA bacteremia with L1-2 osteo/discitis - continue cefazolin. Following repeat bcx. MRI pending. TTE with no veg seen. thrush - on fluconazole Will follow, thank you
--- NOTE | 2019-02-09 15:07 | MRI_ITS ---
HISTORY: DDiscitis ABNORMAL CT, SEVERE BACK PAIN. Diabetes. Hypertension. Renal disease. Coronary artery disease. A. fib. Metallic stent. Metal pins in shoulder. Shrapnel in right leg. Allergies to mushrooms TECHNIQUE: Routine MRI of the lumbar spine was performed with and without 17 mL of Dotarem IV Gadolinium. COMPARISON: CT scan of the lumbar spine from about 9 hours earlier FINDINGS: # of images incl. paperwork: 228 Bony alignment is normal. Except at the L1 vertebral body, vertebral body height is normal. The L1-L2 disc space is obliterated and filled with fluid. Edema permeates throughout the L1 vertebral body and the top two thirds of the L2 vertebral body. This is the same area with there is abnormal marrow enhancement. Enhancement is also present within the spinous process of T12 the spinous process and the complete posterior elements of L1. The pedicles of L2 to demonstrate some edema. There is some enhancement to the soft tissue dorsal to the L4-L5 and S1 vertebral bodies. I believe this tissue is dural venous plexus, and not epidural abscesses. There are abscesses within the psoas muscles bilaterally. These are incompletely imaged on the axial images. On the right side, the abscess, at the level of the L1-L2 disc space measures 4.3 cm in craniocaudal dimensions and has loculations. The extent of disease within the left psoas muscle is greater, extending for over 10 cm in craniocaudal dimensions. The conus medullaris is at T12 and unaffected by this disease. Posterior to the L1 vertebral body the spinal canal is widely patent. The nerves are all equally distributed about the canal. Posterior to the disc disease at the L1-L2 level there is bone extending posteriorly into the spinal canal displacing most of the CSF. Facet arthropathy and ligamentous thickening are also present at this level contributing to spinal canal stenosis, however, which is only mild in spite of the severe degree of the discitis. There does appear to be some inflammatory change of the dura, but without bibiana abscess. At the L2-L3 level facet arthropathy ligamental thickening, bone and disc material extend posteriorly into the spinal canal. This contributes to mild spinal canal stenosis. At the L3-L4 level facet arthropathy ligamental thickening and disc bulge cause mild spinal canal stenosis. At the L4-L5 level facet arthropathy ligamental thickening or greater. Disc bulge is mild. Moderate spinal canal stenosis is present. At the L5-S1 level facet arthropathy, ligamental thickening, and disc bulge contribute to mild spinal canal stenosis. Facet arthropathy is somewhat greater with fluid within the right L5-S1 facet joint. MRI/Spine Lumbar W/WO Contrast IMPRESSION: Discitis at the L1-L2 level. The discitis has eroded into the inferior endplate of the L1 vertebral body with osteomyelitis. Due to enhancement and edema within the marrow of the posterior elements of L1 including the lamina and spinous process. There is trace edema within these pinus process of T12. There is edema and enhancement within the pedicles of L2. All this edema and enhancement is consistent with osteomyelitis. I do not appreciate an epidural abscess. There is some epidural inflammation however. Spinal canal stenosis is perhaps most severe at the L4-L5 level mostly due to facet arthropathy ligamental thickening with a small disc bulge. Spinal canal stenosis at the discitis level, the L1-L2 level is mild. There are, however, abscesses within the psoas muscles. On the right psoas muscle the abscesses 4.3 cm in long axis dimensions. On the left the abscesses extend for over 10 cm in craniocaudal dimensions along the psoas muscle. at 2305 Reported and signed by: Efrain Law MD Electronically Signed: Efrain Law MD at 23:04 EDT Tel , Service support ,
[2019-02-09] MEDS: Cefazolin 2 GM in 0.9% Normal Saline 100 ML IV ×2 (15:23→22:06)
[2019-02-09] MEDS: CHLORHEXIDINE GLUC 2% CLOTH 1 EACH TOWELETTE TOPICAL (15:27)
[2019-02-09] MEDS: Gabapentin 300 MG Capsule PO (17:19)
[2019-02-09] MEDS: Insulin Lispro 100 UNIT/ML INSULN.PEN SC ×2 (17:23→22:05)
[2019-02-09 17:36] LABS: Bedside Glucose 271 mg/dL (70-110)
[2019-02-09] MEDS: fentaNYL 100 MCG/2 ML Ampul 25 MCG IV (19:20)
--- NOTE | 2019-02-09 21:36 | PCM.CONS.C ---
Problem List (1) Paroxysmal atrial fibrillation Status: Chronic (2) CAD in [place] artery Status: Chronic (3) S/P PTCA (percutaneous transluminal coronary angioplasty) Status: Chronic (4) Hyperlipidemia Status: Chronic (5) Type II diabetes mellitus Status: Chronic Qualifiers: Diabetes mellitus continuous churn buttermaker insulin use: with intermediate use Diabetes mellitus complication status: with hyperglycemia Qualified Code(s): E11.65 - Type 2 diabetes mellitus with hyperglycemia; Z79.4 - long-term (current) use of insulin Comment: not adequately controlled, HGBA1C is 8 (6) Hyperosmolar coma due to secondary diabetes Status: Acute (7) Chronic renal disease, stage III Status: Chronic (8) MSSA bacteremia Status: Acute Reason for Consult Date of Consultation: 02/09/19 History of Present Illness: The patient is a 69 year old white male who presented for evaluation of mental status changes and was subsequently diagnosed with diabetes mellitus complications with a hyperosmolar coma as well as concerns of acute on chronic renal insufficiency who has subsequently been diagnosed with concerns of bacteremia and an underlying discitis who is being referred for recurrence of atrial fibrillation with rapid ventricular response. The patient follows with cardiology from [place], [place] and [place]. Based upon medical records received he has a history of underlying CAD and has had previous PCI in the past (to the LAD distribution) as well as paroxysmal atrial fibrillation for which he was on dronedarone and warfarin. He originally presented with sinus rhythm, however, during his hospitalization he has now had recurrence of atrial fibrillation with rapid ventricular response. He denies any ongoing chest discomfort or difficulty breathing. There has been no report of ongoing palpitations. He has had no lower extremity edema. He states his main concern has been his back discomfort. He has been undergoing evaluation for his infectious disease related issues. These have included radiologic studies and a transverse thoracic echocardiogram. The results of the transthoracic echocardiogram are as noted below. Past Medical History Allergies/Adverse Reactions: Allergies mushroom Allergy (Verified 01/12/17 23:26) Unknown Home Medications: Ambulatory Orders Medication Instructions Recorded Atorvastatin Calcium [Lipitor] 40 mg PO QHS 03/25/14 Clopidogrel Bisulfate [Plavix] 75 mg PO DAILY 03/25/14 Isosorbide Mononitrate [Isosorbide 30 mg PO DAILY 07/08/14 Mononitrate ER] Linagliptin [Tradjenta] 5 mg PO DAILY 12/06/15 Acetaminophen [Tylenol Tablet] 650 mg PO Q6H PRN PRN #0 tablet 12/14/15 Albuterol Inhaler [Ventolin Hfa] 2 puff INHALATION Q4H PRN PRN #1 12/14/15 Gabapentin [Neurontin] 300 mg PO BIDCM capsule 12/14/15 Nitroglycerin (INPATIENT USE) 0.4 mg SUBLINGUAL Q5M PRN #0 tablet 12/14/15 [Nitrostat] Furosemide [Lasix] 20 mg PO BIDLX 01/13/17 Metoprolol Tartrate [Lopressor 12.5 mg PO BID 01/13/17 (beta cordelia)] Warfarin [Coumadin] 5 mg PO MOWEFRSA 01/13/17 Warfarin [Coumadin] 12.5 mg PO SUTUTH 01/13/17 Budesonide/Formoterol Fumarate 2 puff INHALATION BID 02/05/19 [Symbicort 80-4.5 Mcg Inhaler] Dronedarone Hydrochloride [Multaq] 400 mg PO BID 02/05/19 Famotidine 40 mg PO DAILY 02/05/19 Fluticasone 0.05% [Flonase Nasal 1 spray NARES BID 02/05/19 [place]] Insulin Aspart [Novolog Flexpen] 30 units SUBCUT TIDCM 02/05/19 Insulin Detemir [Levemir FlexPen] 25 units SUBCUT BID 02/05/19 Past Medical History (Chronic Problems): Chronic Problems CAD in [place] artery (Chronic) S/P PTCA (percutaneous transluminal coronary angioplasty) (Chronic) HTN (hypertension) (Chronic) Obesity (BMI 30-39.9) (Chronic) Hyperlipidemia (Chronic) Chronic back pain (Chronic) Chronic 2nd toe ulcer (Chronic) Chronic renal disease, stage III (Chronic) Coronary artery disease (Chronic) Status post stents Diabetic peripheral neuropathy (Chronic) Type II diabetes mellitus (Chronic) not adequately controlled, HGBA1C is 8 Paroxysmal atrial fibrillation (Chronic) Surgical History: noncontributory Psychiatric History: No pertinent psych hx - *Family History Maternal History Items: Heart Disease Paternal History Items: Diabetes, Heart Disease Lives: Alone Smoking Status: Unknown if ever smoked Tobacco Use: - - Unknown tobacco history-patient not able to provide Review of Systems - Review of Systems Cardiovascular: Denies: Chest Discomfort, Shortness of Breath, Orthopnea, PND, Peripheral Edema, Palpitations, Lightheadedness, Dizziness, Near Syncope, Syncope Respiratory: Denies: Cough, Sputum Production, Hemoptysis Gastrointestinal: Denies: Hematemesis, Hematochezia, Melena Genitourinary: Denies: Dysuria, Hematuria Muscoloskeletal: Reports: Back Pain Subjectve: A 69-year-old white male who complains of back discomfort but appears to be resting reasonably comfortably at the moment in no acute distress. Objective: Vital Signs Temp Pulse Resp BP Pulse Ox 99.3 F H 100 41 H 93/55 L 95 02/09/19 12:00 02/09/19 18:00 02/09/19 18:00 02/09/19 18:00 02/09/19 19:22 Oxygen Flow Rate (L/min) 2 Oxygen Delivery Method Room Air Weight: 190 lb 14.725 oz Body Mass Index (BMI) 24.5 Finger Stick Blood Glucose 76 Intake and Output for Last 24 Hours 02/07/19 02/08/19 02/09/19 23:59 23:59 23:59 Intake Total 3500.16 / 3597.73 4666.15 / 4666.15 3245.00 / 3245.00 Output Total 900 / 1400 1775 / 2350 1650 / 1650 Balance 2600.16 / 2197.73 2891.15 / 2316.15 1595.00 / 1595.00 General: Awake, Cooperative, No Acute Distress HEENT: Normocephalic, PERRL, EOMI, Sclera Non Icteric Oral: Moist Mucosa Neck: Supple, Good ROM, No JVD Lungs: Clear to auscultation Cardiovascular: Irregular Rhythm, Normal S1, Normal S2 Abdomen: Bowel Sounds Present, Soft, Non Tender Extremities: No edema Neurological: No Focal Motor or Sensory Deficit 02/09/19 00:20: Sodium 145, Potassium 3.7, Chloride 117 H, Carbon Dioxide 21.0, Anion Gap 7, BUN 28 H, Creatinine 1.53 H, Est GFR (MDRD) Af Amer 58 L, Est GFR (MDRD) Non-Af 48 L, BUN/Creatinine Ratio 18.3, Glucose 111 H, Calcium 7.9 L 02/09/19 04:17: Sodium 145, Potassium 3.7, Chloride 116 H, Carbon Dioxide 19.0 L, Anion Gap 10, BUN 30 H, Creatinine 1.56 H, Est GFR (MDRD) Af Amer 57 L, Est GFR (MDRD) Non-Af 47 L, BUN/Creatinine Ratio 19.2, Glucose 112 H, Calcium 8.0 L 02/09/19 04:17: Phosphorus 0.8 L*, Magnesium 1.6, Total Bilirubin 0.50, Direct Bilirubin 0.12 02/09/19 04:17: Hemoglobin A1c 12.8 H Rhythm: Atrial fibrillation EKG: Atrial fibrillation; PVCs; septal SD of indeterminate age cannot be excluded; nonspecific ST/T wave abnormality ECHO: Interpretation Summary The estimated ejection fraction is 65 %. Stage 2 diastolic dysfunction. Trivial tricuspid valve insufficiency. Right ventricular systolic pressure estimated to be 29 mmHg. There is no comparison study available. Cardiac Cath: 05-27-14: [place], [place] Left ventricle reported as normal with an LVEF of 70%; LAD reported as having a stent which was reported as patent; otherwise no angiographically significant disease reported PCI: Based upon outside medical records the report is that the patient underwent cardiac catheterization/PCI in 2001 and 2008-details unknown CXR: Preliminary evaluation: Portable chest x-ray: Diminished inspiratory effort: Possible increased pulmonary vascularity: Blunting of the costophrenic angles: Please see official report Assessment/Plan 1. Atrial fibrillation The patient has a history of paroxysmal atrial fibrillation. He has previously been on medical management to assist in his atrial fibrillation control with dronedarone as well as anticoagulant therapy with warfarin. He originally presented in sinus rhythm. During the time of his acute noncardiac illness he is now demonstrated recurrence of his atrial fibrillation. He has had episodes of rapid ventricular response. He is undergone noninvasive evaluation. This is included his echocardiographic findings. At the present time he will continue medical management. He will have rate control therapy as deemed appropriate and tolerated. He will be placed on IV amiodarone to assist with rate control as well as hopefully to regain sinus rhythm. His oral anticoagulants have been on hold. He will continue medical management with his non-oral anticoagulants-heparin at this time. Anticoagulant therapy may depend upon his infectious disease finding and whether or not he needs any form of surgical/percutaneous intervention. 2. CAD status post PCI The patient has undergone evaluation and care for CAD and PCI. His most recent diagnostic cardiac catheterization from his cardiology group in [place], [place] is as described above. The present time he will continue risk factor evaluation care as deemed appropriate. 3. Hyperlipidemia He will continue medical management with adjustment of medications as deemed appropriate. 4. Diabetes mellitus The patient has had ongoing issues with his diabetes mellitus. He presented with complications of his diabetes mellitus. He is continuing evaluation and care by internal medicine. 5. Acute on chronic renal insufficiency The patient's creatinine level has improved over time however it is not back to normal. It is unclear what his baseline status. This has to be taken into consideration with medication and other procedures including those that may require IV contrast, etc. 6. Bacteremia The patient has been diagnosed with bacteremia. He has been diagnosed with discitis. He is being treated with IV antibiotics. He is being followed by infectious disease. Comment: The patient's case was discussed and reviewed with the patient and Dr. Estrada. This note was generated using a voice recognition system and there may be incorrect words, spelling or punctuation that were not noted when reviewing the office note prior to saving.
[2019-02-09] MEDS: Metoprolol Tartrate 25 MG Tablet 12.5 MG PO (22:05)
[2019-02-09] MEDS: Atorvastatin Calcium 40 MG Tablet PO (22:05)
[2019-02-09] MEDS: HYDROmorphone 1 MG/ML Syringe IV (23:23)
[2019-02-10] VITALS (20 sets, daily range): BP systolic 100–138; BP diastolic 40–60; PULSE 63–98; RESP 14–37; TEMP 36.1–36.7; O2SAT 95–100
[2019-02-10 00:41] LABS: Bedside Glucose 377 mg/dL (70-110)
--- NOTE | 2019-02-10 00:53 | CPS ---
nurse put pt on bipap at 2230
[2019-02-10 05:50] LABS: Albumin, Serum 1.4 g/dL (3.2-5.0); BUN 44 mg/dL (7-18); BUN/Creat Ratio 23.5 RATIO (10-20); Calcium,Total 7.7 mg/dL (8.5-10.1); Chloride 115 mmol/L (98-107); Creatinine, Serum 1.87 mg/dL (0.70-1.30); EST Glomerular Filtration Rate 38 mL/min (>60); Est Glom Filt Rate - Afr Amer 46 mL/min (>60); Estimated Creatinine Clearance 39.77 ml/min; Glucose 446 mg/dL (74-106); Potassium 4.5 mmol/L (3.5-5.1); Sodium Level 144 mmol/L (136-145)
[2019-02-10] MEDS: Cefazolin 2 GM in 0.9% Normal Saline 100 ML IV ×2 (06:12→14:06)
--- NOTE | 2019-02-10 06:41 | PN_ITS ---
Subjective: The patient was seen and examined at the bedside this morning. Events from the last 24 hours have been reviewed. The patient is currently afebrile, hemodynamically stable and maintaining appropriate oxygen saturations on room air. Lumbar spine MRI was completed last evening and did reveal evidence of discitis at the L1-L2 level along with evidence of osteomyelitis and psoas muscle abscesses. The patient was started on an amiodarone drip yesterday due to underlying atrial fibrillation. In addition, he was medicated with IV Dilaudid last evening due to back pain. Blood sugars are elevated this morning to 446. Objective: The patient's most recent lab work, culture data and imaging studies have all been personally reviewed. The patient's last positive blood culture was dated February 07. Repeat blood cultures dated February 09 are currently pending. General: Alert, Cooperative, No apparent distress HEENT: Atraumatic, PERRLA, Normocephalic Oral: No Gingival or Mucosal Lesions/ Ulcerations Neck: Supple, No Nodes, Trachea Midline Lungs: No rhonchi, No wheeze, No rales, Diminished Cardiovascular: Normal S1, Normal S2, No murmurs, Irregular Rate Abdomen: Bowel Sounds Present, Soft, Non Tender, Obese Extremities: No clubbing, No cyanosis, No edema Skin: - - No significant change from previous Musculoskeletal: No Muscle Wasting Lymphatic: No Cervical, Supraclavicular, or Inguinal Adenopathy Neurological: Neuro grossly intact Psych/Mental Status: Normal Affect, Appropriate Vital Signs Temp Pulse Resp BP Pulse Ox 97.8 F 72 28 H 128/49 H 97 02/10/19 04:00 02/10/19 06:00 02/10/19 06:00 02/10/19 06:00 02/10/19 06:00 Oxygen Flow Rate (L/min) 2 Oxygen Delivery Method Bi-pap Weight: 192 lb 3.889 oz Body Mass Index (BMI) 24.5 Finger Stick Blood Glucose 76 Intake and Output for Last 24 Hours 02/08/19 02/09/19 02/10/19 23:59 23:59 23:59 Intake Total 4666.15 / 4666.15 3355.00 / 3355.00 303 / 303 Output Total 1775 / 2350 1650 / 2050 900 / 900 Balance 2891.15 / 2316.15 1705.00 / 1305.00 -597 / -597 Labs (Last 48 Hours) 02/08/19 02/08/19 02/08/19 03:54 04:00 04:00 WBC 7.5 RBC 4.02 L Hgb 11.5 L Hct 36.4 L MCV 90.5 MCH 28.6 MCHC 31.6 L RDW Std Deviation 49.2 H RDW Coeff of [place] 14.7 H Plt Count 121 L MPV 11.1 Immature Gran % (Auto) 0.400 Neut % (Auto) 85.9 H Lymph % (Auto) 7.2 L [place] % (Auto) 6.4 Eos % (Auto) 0.0 Baso % (Auto) 0.1 Absolute Neuts (auto) 6.4 Absolute Lymphs (auto) 0.54 L Sodium 154 H Potassium 3.8 Chloride 125 H Carbon Dioxide 22.0 Anion Gap 7 BUN 26 H Creatinine 1.63 H Estim Creat Clear Calc 45.62 Est GFR (MDRD) Af Amer 55 L Est GFR (MDRD) Non-Af 45 L BUN/Creatinine Ratio 16.0 Glucose 143 H Hemoglobin A1c Calcium 8.7 Phosphorus Magnesium Total Bilirubin Direct Bilirubin AST ALT Alkaline Phosphatase Total Protein Albumin Globulin POC Glucose 139 H 02/08/19 02/08/19 02/08/19 04:58 05:55 06:54 WBC RBC Hgb Hct MCV MCH MCHC RDW Std Deviation RDW Coeff of [place] Plt Count MPV Immature Gran % (Auto) Neut % (Auto) Lymph % (Auto) [place] % (Auto) Eos % (Auto) Baso % (Auto) Absolute Neuts (auto) Absolute Lymphs (auto) Sodium Potassium Chloride Carbon Dioxide Anion Gap BUN Creatinine Estim Creat Clear Calc Est GFR (MDRD) Af Amer Est GFR (MDRD) Non-Af BUN/Creatinine Ratio Glucose Hemoglobin A1c Calcium Phosphorus Magnesium Total Bilirubin Direct Bilirubin AST ALT Alkaline Phosphatase Total Protein Albumin Globulin POC Glucose 149 H 143 H 140 H 02/08/19 02/08/19 02/08/19 08:00 08:03 09:20 WBC RBC Hgb Hct MCV MCH MCHC RDW Std Deviation RDW Coeff of [place] Plt Count MPV Immature Gran % (Auto) Neut % (Auto) Lymph % (Auto) [place] % (Auto) Eos % (Auto) Baso % (Auto) Absolute Neuts (auto) Absolute Lymphs (auto) Sodium 153 H Potassium 3.1 L Chloride 126 H Carbon Dioxide 21.0 Anion Gap 6 BUN 27 H Creatinine 1.58 H Estim Creat Clear Calc 47.07 Est GFR (MDRD) Af Amer 56 L Est GFR (MDRD) Non-Af 46 L BUN/Creatinine Ratio 17.1 Glucose 154 H Hemoglobin A1c Calcium 8.0 L Phosphorus Magnesium Total Bilirubin Direct Bilirubin AST ALT Alkaline Phosphatase Total Protein Albumin Globulin POC Glucose 111 H 120 H 02/08/19 02/08/19 02/08/19 10:11 11:06 11:55 WBC RBC Hgb Hct MCV MCH MCHC RDW Std Deviation RDW Coeff of [place] Plt Count MPV Immature Gran % (Auto) Neut % (Auto) Lymph % (Auto) [place] % (Auto) Eos % (Auto) Baso % (Auto) Absolute Neuts (auto) Absolute Lymphs (auto) Sodium 151 H Potassium 3.5 Chloride 121 H Carbon Dioxide 22.0 Anion Gap 8 BUN 26 H Creatinine 1.57 H Estim Creat Clear Calc 47.37 Est GFR (MDRD) Af Amer 57 L Est GFR (MDRD) Non-Af 47 L BUN/Creatinine Ratio 16.6 Glucose 123 H Hemoglobin A1c Calcium 8.4 L Phosphorus Magnesium Total Bilirubin Direct Bilirubin AST ALT Alkaline Phosphatase Total Protein Albumin Globulin POC Glucose 114 H 114 H 02/08/19 02/08/19 02/08/19 12:13 13:06 14:04 WBC RBC Hgb Hct MCV MCH MCHC RDW Std Deviation RDW Coeff of [place] Plt Count MPV Immature Gran % (Auto) Neut % (Auto) Lymph % (Auto) [place] % (Auto) Eos % (Auto) Baso % (Auto) Absolute Neuts (auto) Absolute Lymphs (auto) Sodium Potassium Chloride Carbon Dioxide Anion Gap BUN Creatinine Estim Creat Clear Calc Est GFR (MDRD) Af Amer Est GFR (MDRD) Non-Af BUN/Creatinine Ratio Glucose Hemoglobin A1c Calcium Phosphorus Magnesium Total Bilirubin Direct Bilirubin AST ALT Alkaline Phosphatase Total Protein Albumin Globulin POC Glucose 111 H 112 H 116 H 02/08/19 02/08/19 02/08/19 15:07 16:03 16:05 WBC RBC Hgb Hct MCV MCH MCHC RDW Std Deviation RDW Coeff of [place] Plt Count MPV Immature Gran % (Auto) Neut % (Auto) Lymph % (Auto) [place] % (Auto) Eos % (Auto) Baso % (Auto) Absolute Neuts (auto) Absolute Lymphs (auto) Sodium 149 H Potassium 3.5 Chloride 120 H Carbon Dioxide 22.0 Anion Gap 7 BUN 27 H Creatinine 1.55 H Estim Creat Clear Calc 47.98 Est GFR (MDRD) Af Amer 57 L Est GFR (MDRD) Non-Af 47 L BUN/Creatinine Ratio 17.4 Glucose 110 H Hemoglobin A1c Calcium 8.2 L Phosphorus Magnesium Total Bilirubin Direct Bilirubin AST ALT Alkaline Phosphatase Total Protein Albumin Globulin POC Glucose 93 103 02/08/19 02/08/19 02/08/19 17:15 18:04 18:52 WBC RBC Hgb Hct MCV MCH MCHC RDW Std Deviation RDW Coeff of [place] Plt Count MPV Immature Gran % (Auto) Neut % (Auto) Lymph % (Auto) [place] % (Auto) Eos % (Auto) Baso % (Auto) Absolute Neuts (auto) Absolute Lymphs (auto) Sodium Potassium Chloride Carbon Dioxide Anion Gap BUN Creatinine Estim Creat Clear Calc Est GFR (MDRD) Af Amer Est GFR (MDRD) Non-Af BUN/Creatinine Ratio Glucose Hemoglobin A1c Calcium Phosphorus Magnesium Total Bilirubin Direct Bilirubin AST ALT Alkaline Phosphatase Total Protein Albumin Globulin POC Glucose 99 110 94 02/08/19 02/08/19 02/08/19 20:00 20:01 21:02 WBC RBC Hgb Hct MCV MCH MCHC RDW Std Deviation RDW Coeff of [place] Plt Count MPV Immature Gran % (Auto) Neut % (Auto) Lymph % (Auto) [place] % (Auto) Eos % (Auto) Baso % (Auto) Absolute Neuts (auto) Absolute Lymphs (auto) Sodium 145 Potassium 3.8 Chloride 117 H Carbon Dioxide 21.0 Anion Gap 7 BUN 27 H Creatinine 1.52 H Estim Creat Clear Calc 48.93 Est GFR (MDRD) Af Amer 58 L Est GFR (MDRD) Non-Af 48 L BUN/Creatinine Ratio 17.8 Glucose 98 Hemoglobin A1c Calcium 8.4 L Phosphorus Magnesium Total Bilirubin Direct Bilirubin AST ALT Alkaline Phosphatase Total Protein Albumin Globulin POC Glucose 91 107 02/08/19 02/08/19 02/09/19 22:08 23:12 00:04 WBC RBC Hgb Hct MCV MCH MCHC RDW Std Deviation RDW Coeff of [place] Plt Count MPV Immature Gran % (Auto) Neut % (Auto) Lymph % (Auto) [place] % (Auto) Eos % (Auto) Baso % (Auto) Absolute Neuts (auto) Absolute Lymphs (auto) Sodium Potassium Chloride Carbon Dioxide Anion Gap BUN Creatinine Estim Creat Clear Calc Est GFR (MDRD) Af Amer Est GFR (MDRD) Non-Af BUN/Creatinine Ratio Glucose Hemoglobin A1c Calcium Phosphorus Magnesium Total Bilirubin Direct Bilirubin AST ALT Alkaline Phosphatase Total Protein Albumin Globulin POC Glucose 120 H 105 114 H 02/09/19 02/09/19 02/09/19 00:20 02:18 03:13 WBC RBC Hgb Hct MCV MCH MCHC RDW Std Deviation RDW Coeff of [place] Plt Count MPV Immature Gran % (Auto) Neut % (Auto) Lymph % (Auto) [place] % (Auto) Eos % (Auto) Baso % (Auto) Absolute Neuts (auto) Absolute Lymphs (auto) Sodium 145 Potassium 3.7 Chloride 117 H Carbon Dioxide 21.0 Anion Gap 7 BUN 28 H Creatinine 1.53 H Estim Creat Clear Calc 48.61 Est GFR (MDRD) Af Amer 58 L Est GFR (MDRD) Non-Af 48 L BUN/Creatinine Ratio 18.3 Glucose 111 H Hemoglobin A1c Calcium 7.9 L Phosphorus Magnesium Total Bilirubin Direct Bilirubin AST ALT Alkaline Phosphatase Total Protein Albumin Globulin POC Glucose 99 105 02/09/19 02/09/19 02/09/19 04:01 04:17 04:17 WBC RBC Hgb Hct MCV MCH MCHC RDW Std Deviation RDW Coeff of [place] Plt Count MPV Immature Gran % (Auto) Neut % (Auto) Lymph % (Auto) [place] % (Auto) Eos % (Auto) Baso % (Auto) Absolute Neuts (auto) Absolute Lymphs (auto) Sodium 145 Potassium 3.7 Chloride 116 H Carbon Dioxide 19.0 L Anion Gap 10 BUN 30 H Creatinine 1.56 H Estim Creat Clear Calc 47.67 Est GFR (MDRD) Af Amer 57 L Est GFR (MDRD) Non-Af 47 L BUN/Creatinine Ratio 19.2 Glucose 112 H Hemoglobin A1c Calcium 8.0 L Phosphorus 0.8 L* Magnesium 1.6 Total Bilirubin 0.50 Direct Bilirubin 0.12 AST 62 H ALT 19 Alkaline Phosphatase 79 Total Protein 6.0 L Albumin 1.5 L Globulin 4.5 H POC Glucose 105 02/09/19 02/09/1902/09/19 04:17 06:10 08:08 WBC RBC Hgb Hct MCV MCH MCHC RDW Std Deviation RDW Coeff of [place] Plt Count MPV Immature Gran % (Auto) Neut % (Auto) Lymph % (Auto) [place] % (Auto) Eos % (Auto) Baso % (Auto) Absolute Neuts (auto) Absolute Lymphs (auto) Sodium Potassium Chloride Carbon Dioxide Anion Gap BUN Creatinine Estim Creat Clear Calc Est GFR (MDRD) Af Amer Est GFR (MDRD) Non-Af BUN/Creatinine Ratio Glucose Hemoglobin A1c 12.8 H Calcium Phosphorus Magnesium Total Bilirubin Direct Bilirubin AST ALT Alkaline Phosphatase Total Protein Albumin Globulin POC Glucose 112 H 84 02/09/19 02/09/19 02/09/19 09:25 10:05 12:15 WBC RBC Hgb Hct MCV MCH MCHC RDW Std Deviation RDW Coeff of [place] Plt Count MPV Immature Gran % (Auto) Neut % (Auto) Lymph % (Auto) [place] % (Auto) Eos % (Auto) Baso % (Auto) Absolute Neuts (auto) Absolute Lymphs (auto) Sodium Potassium Chloride Carbon Dioxide Anion Gap BUN Creatinine Estim Creat Clear Calc Est GFR (MDRD) Af Amer Est GFR (MDRD) Non-Af BUN/Creatinine Ratio Glucose Hemoglobin A1c Calcium Phosphorus Magnesium Total Bilirubin Direct Bilirubin AST ALT Alkaline Phosphatase Total Protein Albumin Globulin POC Glucose 76 70 135 H 02/09/19 02/09/19 02/10/19 17:16 22:00 04:05 WBC RBC Hgb Hct MCV MCH MCHC RDW Std Deviation RDW Coeff of [place] Plt Count MPV Immature Gran % (Auto) Neut % (Auto) Lymph % (Auto) [place] % (Auto) Eos % (Auto) Baso % (Auto) Absolute Neuts (auto) Absolute Lymphs (auto) Sodium 144 Potassium 4.5 Chloride 115 H Carbon Dioxide 22.0 Anion Gap BUN 44 H Creatinine 1.87 H Estim Creat Clear Calc 39.77 Est GFR (MDRD) Af Amer 46 L Est GFR (MDRD) Non-Af 38 L BUN/Creatinine Ratio 23.5 H Glucose 446 H Hemoglobin A1c Calcium 7.7 L Phosphorus 3.0 Magnesium Total Bilirubin Direct Bilirubin AST ALT Alkaline Phosphatase Total Protein Albumin 1.4 L Globulin POC Glucose 271 H 377 H Microbiology 02/05/19 13:30 Blood Culture (Wb) - Left Forearm Bacteria Detection (PCR) - Final Staphylococcus aureus 02/05/19 13:30 Blood Culture (Wb) - Left Forearm Blood Culture - Final Staphylococcus aureus 02/05/19 13:40 Blood Culture (Wb) - Right Wrist Blood Culture - Final Staphylococcus aureus 02/07/19 09:40 Blood Culture (Wb) - Right Wrist Blood Culture - Preliminary Staphylococcus aureus 02/07/19 09:45 Blood Culture (Wb) - Right Hand Blood Culture - Preliminary Staphylococcus aureus 02/06/19 11:00 Blood Culture (Wb) - Venous Blood Culture - Preliminary Staphylococcus aureus 02/06/19 08:50 Blood Culture (Wb) - Anticubital Right Blood Culture - Preliminary Staphylococcus aureus Clinical Impression(s) from Imaging Studies Brain CT 02/05/19 13:17 IMPRESSION: Chronic involutional changes of the brain. Electronically Signed: Maikel Cevallos, at 14:56 EDT , Service support , Chest X-Ray 02/05/19 13:17 IMPRESSION: Findings suggestive of a mild degree of CHF with blunting of both costophrenic angles and bibasilar atelectasis. Electronically Signed: Maikel Cevallos, at 14:51 EDT , Service support , Lumbar Spine CT 02/09/19 09:40 IMPRESSION: Osteomyelitis/discitis at L1-2. Somewhat atypical presentation with marked involvement of the L1 inferior endplate but very little apparent involvement of L2. Prominent paraspinal and prevertebral inflammation. Thecal sac is not well delineated at this level and epidural abscess cannot be excluded. If not contraindicated, MRI thoracic and lumbar spine with and without gadolinium should be obtained. Electronically Signed: Magdiel Strickland, at 11:16 EDT Tel , Service support , ADDENDUM: 02/09/19 1130 ADDENDUM: 02/09/19 1136 ADDENDUM: 02/09/[address] 02/09/19 09:40 IMPRESSION: No acute abnormality of the thoracic spine. L1-2 osteomyelitis discitis partially visible, please see CT lumbar spine report. Dependent densities likely in left lung bases; most likely atelectasis with pneumonia possible. Electronically Signed: Magdiel Strickland, at 11:20 EDT Tel , Service support , Femur X-Ray 02/09/19 13:50 IMPRESSION: No acute osseous abnormality. No radiopaque foreign body is evident. Electronically Signed: Magdiel Strickland, at 14:33 EDT Tel , Service support , Tibia/Fibula X-Ray 02/09/19 13:50 IMPRESSION: No acute osseous abnormality. No apparent radiopaque foreign body. Electronically Signed: Magdiel Strickland, at 14:34 EDT Tel , Service support , Lumbar Spine MRI 02/09/19 15:07 IMPRESSION: Discitis at the L1-L2 level. The discitis has eroded into the inferior endplate of the L1 vertebral body with osteomyelitis. Due to enhancement and edema within the marrow of the posterior elements of L1 including the lamina and spinous process. There is trace edema within these pinus process of T12. There is edema and enhancement within the pedicles of L2. All this edema and enhancement is consistent with osteomyelitis. I do not appreciate an epidural abscess. There is some epidural inflammation however. Spinal canal stenosis is perhaps most severe at the L4-L5 level mostly due to facet arthropathy ligamental thickening with a small disc bulge. Spinal canal stenosis at the discitis level, the L1-L2 level is mild. There are, however, abscesses within the psoas muscles. On the right psoas muscle the abscesses 4.3 cm in long axis dimensions. On the left the abscesses extend for over 10 cm in craniocaudal dimensions along the psoas muscle. at 2305 Reported and signed by: Efrain Law MD Electronically Signed: Efrain Law MD at 23:04 EDT Tel , Service support , Medical Necessity - Tobacco Use Smoking Status: Unknown if ever smoked Tobacco Use: - - Unknown tobacco history-patient not able to provide Assessment/Plan All Active Problems Hyperosmolar coma due to secondary diabetes (Acute) Hypernatremia (Acute) MSSA bacteremia (Acute) Hypoglycemia (Resolved) Hypothermia (Resolved) Altered mental state (Acute) Acute osteomyelitis of metacarpal bone (Resolved) Osteomyelitis of toe of right foot (Resolved) Right 2nd toe suspected osteomyelitis (Resolved) Right 2nd toe gangrene (Resolved) RECOMMENDATIONS: 1. Transfer to tertiary care facility given findings noted on MRI spine. 2. Continue antimicrobials. 3. Dietary advancement per speech therapy recommendations. 4. Rate/rhythm control strategy per cardiology recommendations. 5. Start basal insulin regimen and continue sliding scale coverage. IMPRESSIONS: 1. Hyperosmolar hyperglycemic state Improved at this time with aggressive volume resuscitation and continuous in sulin infusion. The patient will be started on twice daily Lantus given his dietary advancements and continued on sliding scale insulin coverage as well. 2. Acute metabolic encephalopathy Resolved. Likely related to underlying infectious etiology coupled with metabolic derangements in the setting of #1. The patient's mentation has improved with correction of his underlying metabolic derangements and with treatment of his bacteremia. Recommend avoiding sedating medications. Continue management of hyperglycemia as noted above. 3. MSSA bacteremia Source appears to be L-spine with discitis/osteomyelitis and psoas muscle abscesses identified on MRI. Continue antimicrobials per infectious diseases recommendations. Recommend transfer to tertiary care facility given the aforementioned findings and potential need for surgical intervention. 4. Hypernatremia/hyperchloremia Improved following free water replacement. Continue to monitor on a daily basis from this point forward. 5. Coronary artery disease/paroxysmal atrial fibrillation Continue rate/rhythm control strategy per cardiology recommendations. 6. Questionable obstructive lung disease/hyperlipidemia/hypertension/history of osteomyelitis Complicates care, management, recovery and prognosis. Continue as needed aerosol treatments for now. Home medications can be resumed once speech therapy has advanced diet. This note was generated with [employer] software. It may contain incorrect words, spelling, and punctuation that were not noted in checking the note before signing. Code Visit Inpatient E&M: 92850 Subs Hosp L3
[2019-02-10 06:51] LABS: Bedside Glucose 380 mg/dL (70-110)
[2019-02-10 07:40] LABS: Bedside Glucose > 500 mg/dL (70-110)
[2019-02-10 07:40] LABS: Bedside Glucose 412 mg/dL (70-110)
[2019-02-10 08:00] LABS: Bedside Glucose > 500 mg/dL (70-110)
[2019-02-10 08:00] LABS: Bedside Glucose 110 mg/dL (70-110)
[2019-02-10 08:00] LABS: Bedside Glucose 107 mg/dL (70-110)
--- NOTE | 2019-02-10 08:31 | PCM.PROGNOTE ---
Patient Problems: Active and Suspected Problems Hyperosmolar coma due to secondary diabetes (Acute) Hypernatremia (Acute) MSSA bacteremia (Acute) - Physical Exam Vital Signs Temp Pulse Resp BP Pulse Ox 97.8 F 84 25 H 128/49 H 99 02/10/19 04:00 02/10/19 07:30 02/10/19 07:30 02/10/19 06:00 02/10/19 07:30 Oxygen Flow Rate (L/min) 2 Oxygen Delivery Method Bi-pap Weight: 192 lb 3.889 oz Body Mass Index (BMI) 24.5 Finger Stick Blood Glucose 76 Intake and Output for Last 24 Hours 02/08/19 02/09/19 02/10/19 23:59 23:59 23:59 Intake Total 4666.15 / 4666.15 3355.00 / 3355.00 303 / 303 Output Total 1775 / 2350 1650 / 2050 900 / 900 Balance 2891.15 / 2316.15 1705.00 / 1305.00 -597 / -597 Microbiology Past 72 Hours 02/05/19 13:30 Bacteria Detection (PCR) - Final Blood Culture (Wb) - Left Forearm Staphylococcus aureus Blood Culture - Final Staphylococcus aureus 02/05/19 13:40 Blood Culture - Final Blood Culture (Wb) - Right Wrist Staphylococcus aureus 02/07/19 09:40 Blood Culture - Preliminary Blood Culture (Wb) - Right Wrist Staphylococcus aureus 02/07/19 09:45 Blood Culture - Preliminary Blood Culture (Wb) - Right Hand Staphylococcus aureus 02/06/19 11:00 Blood Culture - Preliminary Blood Culture (Wb) - Venous Staphylococcus aureus 02/06/19 08:50 Blood Culture - Preliminary Blood Culture (Wb) - Anticubital Right Staphylococcus aureus Laboratory Tests Past 24 Hrs 02/09/19 02/09/19 02/10/19 04:17 04:17 04:05 Sodium 144 Potassium 4.5 Chloride 115 H Carbon Dioxide 22.0 BUN 44 H Creatinine 1.87 H Estim Creat Clear Calc 39.77 Est GFR (MDRD) Af Amer 46 L Est GFR (MDRD) Non-Af 38 L BUN/Creatinine Ratio 23.5 H Glucose 446 H Hemoglobin A1c 12.8 H Calcium 7.7 L Phosphorus 0.8 L* 3.0 Magnesium 1.6 Total Bilirubin 0.50 Direct Bilirubin 0.12 AST 62 H ALT 19 Alkaline Phosphatase 79 Total Protein 6.0 L Albumin 1.5 L 1.4 L Globulin 4.5 H POC Glucose 02/10/19 02/09/19 02/09/19 06:42 22:00 17:16 POC Glucose 380 H 377 H 271 H 02/09/19 02/09/19 02/09/19 12:15 10:05 09:25 POC Glucose 135 H 70 76 02/09/19 02/09/19 02/06/19 05:09 01:16 15:22 POC Glucose 110 107 > 500 H* 02/06/19 02/05/19 15:19 11:53 POC Glucose 412 H > 500 H* Medical Necessity - Tobacco Use Smoking Status: Unknown if ever smoked Tobacco Use: - - Unknown tobacco history-patient not able to provide Assessment/Plan All Active Problems Hyperosmolar coma due to secondary diabetes (Acute) Hypernatremia (Acute) MSSA bacteremia (Acute) Hypoglycemia (Resolved) Hypothermia (Resolved) Altered mental state (Acute) Acute osteomyelitis of metacarpal bone (Resolved) Osteomyelitis of toe of right foot (Resolved) Right 2nd toe suspected osteomyelitis (Resolved) Right 2nd toe gangrene (Resolved)
[2019-02-10] MEDS: Insulin Lispro 100 UNIT/ML INSULN.PEN SC (09:06)
[2019-02-10] MEDS: Gabapentin 300 MG Capsule PO (09:07)
[2019-02-10] MEDS: Heparin Injection (Vial) 5,000 UNIT/ML VIAL 5000 UNIT SC (09:08)
[2019-02-10] MEDS: Metoprolol Tartrate 25 MG Tablet 12.5 MG PO (09:12)
[2019-02-10 09:40] LABS: Bedside Glucose 388 mg/dL (70-110)
--- NOTE | 2019-02-10 09:45 | PCM.PN.ID ---
Patient Problems: Active and Suspected Problems Hyperosmolar coma due to secondary diabetes (Acute) Hypernatremia (Acute) MSSA bacteremia (Acute) Subjective: Feeling ok, no fever, back pain stable. - Physical Exam General: Alert, Cooperative, No apparent distress Lungs: Clear to auscultation, Normal air movement Cardiovascular: Irregular Rate Abdomen: Soft, Non Tender, Non-Distended Skin: No rashes Vital Signs Temp Pulse Resp BP Pulse Ox 97.8 F 74 25 H 119/55 L 99 02/10/19 04:00 02/10/19 09:12 02/10/19 07:30 02/10/19 09:12 02/10/19 07:30 Oxygen Flow Rate (L/min) 2 Oxygen Delivery Method Bi-pap Weight: 87.2 kg Body Mass Index (BMI) 24.5 Finger Stick Blood Glucose 76 Intake and Output for Last 24 Hours 02/08/19 02/09/19 02/10/19 23:59 23:59 23:59 Intake Total 4666.15 / 4666.15 3355.00 / 3355.00 303 / 303 Output Total 1775 / 2350 1650 / 2050 900 / 900 Balance 2891.15 / 2316.15 1705.00 / 1305.00 -597 / -597 Microbiology Past 72 Hours 02/05/19 13:30 Bacteria Detection (PCR) - Final Blood Culture (Wb) - Left Forearm Staphylococcus aureus Blood Culture - Final Staphylococcus aureus 02/05/19 13:40 Blood Culture - Final Blood Culture (Wb) - Right Wrist Staphylococcus aureus 02/07/19 09:40 Blood Culture - Preliminary Blood Culture (Wb) - Right Wrist Staphylococcus aureus 02/07/19 09:45 Blood Culture - Preliminary Blood Culture (Wb) - Right Hand Staphylococcus aureus 02/06/19 11:00 Blood Culture - Preliminary Blood Culture (Wb) - Venous Staphylococcus aureus 02/06/19 08:50 Blood Culture - Preliminary Blood Culture (Wb) - Anticubital Right Staphylococcus aureus Laboratory Tests Past 24 Hrs 02/09/19 02/09/19 02/10/19 04:17 04:17 04:05 Sodium 144 Potassium 4.5 Chloride 115 H Carbon Dioxide 22.0 BUN 44 H Creatinine 1.87 H Estim Creat Clear Calc 39.77 Est GFR (MDRD) Af Amer 46 L Est GFR (MDRD) Non-Af 38 L BUN/Creatinine Ratio 23.5 H Glucose 446 H Hemoglobin A1c 12.8 H Calcium 7.7 L Phosphorus 0.8 L* 3.0 Magnesium 1.6 Total Bilirubin 0.50 Direct Bilirubin 0.12 AST 62 H ALT 19 Alkaline Phosphatase 79 Total Protein 6.0 L Albumin 1.5 L 1.4 L Globulin 4.5 H POC Glucose 02/10/19 02/10/19 02/09/19 08:52 06:42 22:00 POC Glucose 388 H 380 H 377 H 02/09/19 02/09/19 02/09/19 17:16 12:15 10:05 POC Glucose 271 H 135 H 70 02/09/19 02/09/19 02/06/19 05:09 01:16 15:22 POC Glucose 110 107 > 500 H* 02/06/19 02/05/19 15:19 11:53 POC Glucose 412 H > 500 H* Medical Necessity - Tobacco Use Smoking Status: Unknown if ever smoked Tobacco Use: - - Unknown tobacco history-patient not able to provide Route of nutrition/ use of supplements: [] Nutritional Intake: [] IV Site: [] [place] Catheter: [] - Assessment/Plan Antibiotics: [] Assessment/Plan: [] Active and Suspected Problems Hyperosmolar coma due to secondary diabetes (Acute) Hypernatremia (Acute) MSSA bacteremia with L1-2 osteo/discitis - continue cefazolin. Bcx from 02/09 neg so far. Will repeat bcx. MRI showed osteo/discitis with bilateral psoas abscesses; will need drainage if possible. TTE with no veg seen. thrush - on fluconazole Will follow, d/w primary team. Transfer planned.
--- NOTE | 2019-02-10 09:50 | PCM.PN.CARD ---
<Yaakov Mckeon H - Last Filed: 02/10/19 09:50> Subjectve: Patient seen and evaluated. He denies any chest pain, palpitations, lightheadedness, dizziness, or shortness of breath. Objective: Vital Signs Temp Pulse Resp BP Pulse Ox 97.8 F 74 25 H 119/55 L 99 02/10/19 04:00 02/10/19 09:12 02/10/19 07:30 02/10/19 09:12 02/10/19 07:30 Oxygen Flow Rate (L/min) 2 Oxygen Delivery Method Bi-pap Weight: 192 lb 3.889 oz Body Mass Index (BMI) 24.5 Finger Stick Blood Glucose 76 Intake and Output for Last 24 Hours 02/08/19 02/09/19 02/10/19 23:59 23:59 23:59 Intake Total 4666.15 / 4666.15 3355.00 / 3355.00 413 / 413 Output Total 1775 / 2350 1650 / 2050 900 / 900 Balance 2891.15 / 2316.15 1705.00 / 1305.00 -487 / -487 General: Awake, Alert, Oriented x 3, Cooperative HEENT: Atraumatic Oral: Dry Mucosa Neck: No JVD Lungs: Diminished Edison Bases Cardiovascular: Irregular Rhythm, Normal S1, Normal S2, No Murmurs, No Rubs, No Gallops Vascular: No Carotid Bruits Abdomen: Bowel Sounds Present, Soft Extremities: No Cyanosis, No Clubbing, No edema, Normal Capillary Refill Neurological: No Focal Motor or Sensory Deficit Psych/Mental Status: Appropriate, Normal Affect 02/09/19 04:17: Phosphorus 0.8 L*, Magnesium 1.6, Total Bilirubin 0.50, Direct Bilirubin 0.12 02/09/19 04:17: Hemoglobin A1c 12.8 H 02/10/19 04:05: Sodium 144, Potassium 4.5, Chloride 115 H, Carbon Dioxide 22.0, BUN 44 H, Creatinine 1.87 H, Est GFR (MDRD) Af Amer 46 L, Est GFR (MDRD) Non-Af 38 L, BUN/Creatinine Ratio 23.5 H, Glucose 446 H, Calcium 7.7 L, Phosphorus 3.0 Rhythm: EK02/10/2019 Atrial fibrillation at 70 bpm ECHO: 02/07/2019 Interpretation Summary The estimated ejection fraction is 65 %. Stage 2 diastolic dysfunction. Trivial tricuspid valve insufficiency. Right ventricular systolic pressure estimated to be 29 mmHg. There is no comparison study available. Stress Test: Cardiac Cath: 05-27-14: [place], [place] Left ventricle reported as normal with an LVEF of 70%; LAD reported as having a stent which was reported as patent; otherwise no angiographically significant disease reported PCI: Based upon outside medical records the report is that the patient underwent cardiac catheterization/PCI in 2001 and 2008-details unknown CXR: Preliminary evaluation: Portable chest x-ray: Diminished inspiratory effort: Possible increased pulmonary vascularity: Blunting of the costophrenic angles: Please see official report PCI: CT Surgery: Holter monitor: EPS: PPM: CXR: Chest CT Scan: Medical Necessity - Tobacco Use Smoking Status: Unknown if ever smoked Tobacco Use: - - Unknown tobacco history-patient not able to provide Assessment/Plan 1. Atrial fibrillation Patient remains in atrial fibrillation this morning. His heart rate is well controlled with IV amiodarone. His echocardiogram from 02/07/2019 showed ejection fraction of 65%, stage II diastolic dysfunction, no regional wall motion abnormalities noted, normal left atrium and normal right atrium size, and an RVSP of 29 mmHg. His last heart catheterization from outside facility in 2014 showed patent previous placed LAD stent and LVEF of 70%. At this time, he will complete IV amiodarone drip protocol followed by amiodarone 200 mg p.o. daily. Patient will be transferred to tertiary facility for neurosurgery consult per primary team given abscess and inflammation noted on MRI. If patient is transferred before completing amiodarone drip protocol, he will begin amiodarone 200 mg p.o. daily prior to transfer. He is currently on Plavix and subcutaneous heparin therapy. He was on warfarin prior to admission. He is currently on metoprolol tartrate 12.5 mg p.o. twice daily. Depending on his overall course, he will need to be discharged from tertiary center on amiodarone therapy, rate controlling medication, and anticoagulation therapy. His metoprolol can be adjusted as tolerated/indicated. He will continue with heparin therapy given possibility of future testing and intervention. 2. Atherosclerotic Coronary Artery Disease status post PCI As noted above, his heart catheterization in 2014 showed patent LAD stent. Patient denies any chest pain, shortness of breath, or symptoms of angina. His initial troponin upon admission in Emergency Department was negative. His EKG does not reveal any acute ST changes. At this time, he will continue current medical therapy. Patient is not on EDITH/ARB d/t chronic kidney disease. 3. Hyperlipidemia Patient is currently on Lipitor 40 mg p.o. daily. He will continue with this medication. This will be followed on an outpatient basis. 4. Diabetes mellitus Patient's initial presentation showed complications from diabetes mellitus. This will be managed and evaluated by primary team/internal medicine. 5. Acute on Chronic renal Insufficiency Patient's creatinine this morning remains elevated, though improved from initial presentation. This will be followed over time. 6. Bacteremia Patient is currently being followed by infectious disease. Patient's MRI showed bilateral psoas abscesses and osteomyelitis. His care will be managed by infectious disease and internal medicine team. Patient's case was discussed with Dr. Godinez, who also evaluate patient. Thank you for allowing us to participate in the patients plan of care, if you have any questions please do not hesitate to call. This note was generated using a voice recognition system and there may be incorrect words, spelling or punctuation that were not noted when reviewing the office note prior to saving. <Troy Godinez - Last Filed: 02/10/19 11:57> Objective: Vital Signs Temp Pulse Resp BP Pulse Ox 97.8 F 74 25 H 119/55 L 99 02/10/19 04:00 02/10/19 09:12 02/10/19 07:30 02/10/19 09:12 02/10/19 07:30 Oxygen Flow Rate (L/min) 2 Oxygen Delivery Method Room Air Weight: 192 lb 3.889 oz Body Mass Index (BMI) 24.5 Finger Stick Blood Glucose 76 Intake and Output for Last 24 Hours 02/08/19 02/09/19 02/10/19 23:59 23:59 23:59 Intake Total 4666.15 / 4666.15 3355.00 / 3355.00 413 / 413 Output Total 1775 / 2350 1650 / 2050 900 / 900 Balance 2891.15 / 2316.15 1705.00 / 1305.00 -487 / -487 02/10/19 04:05: Sodium 144, Potassium 4.5, Chloride 115 H, Carbon Dioxide 22.0, BUN 44 H, Creatinine 1.87 H, Est GFR (MDRD) Af Amer 46 L, Est GFR (MDRD) Non-Af 38 L, BUN/Creatinine Ratio 23.5 H, Glucose 446 H, Calcium 7.7 L, Phosphorus 3.0 Rhythm: EKG: ECHO: Stress Test: Cardiac Cath: PCI: CT Surgery: Holter monitor: EPS: PPM: CXR: Chest CT Scan: Assessment/Plan Abdomen: Date: 02-10-19 The patient was independently evaluated/examined. The patient denies any ongoing chest discomfort, dyspnea,/palpitations. The patient's main concern focuses around his back discomfort. On examination it is noted to the patient's heart rate has decreased. His heart rate has been reported between 70 and 80 bpm-approximately. His blood pressure has been reported at approximately 120/60 mmHg. On examination his lungs are without obvious rales or rhonchi. His cardiovascular exam demonstrate what appears to be a somewhat irregular rhythm with a normal S1 and S2. His abdomen demonstrates positive bowel sounds being soft nontender with no obvious organomegaly. His extremities are without obvious peripheral pitting edema. His cardiac rhythm has demonstrated findings of atrial fibrillation and subsequently findings appearing compatible with sinus versus an ectopic atrial rhythm with PSVC's. Impression/plan: At the present time the patient continues to be monitored for concerns of his underlying history of atrial fibrillation. It appears that he is attempting to convert his rhythm to sinus versus an ectopic atrial rhythm with premature ectopic complexes. He will continue medical management. His IV amiodarone is going to be changed to oral amiodarone. He will continue additional rate limiting therapy as needed and anticoagulant therapy as deemed appropriate based on his other medical conditions. He does have a history of CAD status post PCI. He appears to be without any acute changes at this time. He will need to continue risk factor evaluation care as deemed appropriate. He is continuing to be evaluated for his other conditions of hyperlipidemia, diabetes mellitus with complications, his renal insufficiency, and his bacteremia. He is scheduled for transfer to [facility] for further evaluation and care of his bacteremia and discitis for the potential need for medical/surgical intervention. Comment: The patient's case has been discussed and reviewed with the patient and Yaakov Mckeon CNP. This note was generated using a voice recognition system and there may be incorrect words, spelling or punctuation that were not noted when reviewing the office note prior to saving.
--- NOTE | 2019-02-10 10:05 | NURSING ---
Attempted to call pt's at number listed in chart to notify of plan to transfer to another healthcare facility following MRI results, no answer.
--- NOTE | 2019-02-10 10:27 | CASEMGMT ---
RN CM Note: Discussed transfer to [facility] for neurosurgery care. Pt requesting [facility] Per [facility] website- [facility] is [facility] [employer]. Barry COLONN RN ACM
[2019-02-10] MEDS: Acetaminophen 500 MG Tablet 1000 MG PO ×2 (10:35→14:48)
[2019-02-10] MEDS: Famotidine 20 MG Tablet PO (10:37)
[2019-02-10] MEDS: CHLORHEXIDINE GLUC 2% CLOTH 1 EACH TOWELETTE TOPICAL (10:46)
--- NOTE | 2019-02-10 11:18 | PN.RENAL_ITS ---
Patient Problems: Active and Suspected Problems Hyperosmolar coma due to secondary diabetes (Acute) Hypernatremia (Acute) MSSA bacteremia (Acute) Subjective: no new complaints - Physical Exam General: Alert, Oriented x3, Cooperative HEENT: Atraumatic, PERRLA, EOMI, Normocephalic Neck: Supple, No JVD, Negative Carotid Bruits Lungs: Clear to auscultation, Normal air movement Cardiovascular: Regular rate, No murmurs Abdomen: Bowel Sounds Present, Soft, Non Tender Extremities: No edema, Capillary Refill Less than 3 Seconds Skin: No rashes, No breakdown Musculoskeletal: No Tenderness to Palpation of Joints or Extremities Neurological: Cranial nerves II-XII grossly intact Psych/Mental Status: Normal Affect, Appropriate Vital Signs Temp Pulse Resp BP Pulse Ox 97.8 F 74 25 H 119/55 L 99 02/10/19 04:00 02/10/19 09:12 02/10/19 07:30 02/10/19 09:12 02/10/19 07:30 Oxygen Flow Rate (L/min) 2 Oxygen Delivery Method Room Air Weight: 87.2 kg Body Mass Index (BMI) 24.5 Finger Stick Blood Glucose 76 Intake and Output for Last 24 Hours 02/08/19 02/09/19 02/10/19 23:59 23:59 23:59 Intake Total 4666.15 / 4666.15 3355.00 / 3355.00 413 / 413 Output Total 1775 / 2350 1650 / 2050 900 / 900 Balance 2891.15 / 2316.15 1705.00 / 1305.00 -487 / -487 Microbiology Past 72 Hours 02/05/19 13:30 Bacteria Detection (PCR) - Final Blood Culture (Wb) - Left Forearm Staphylococcus aureus Blood Culture - Final Staphylococcus aureus 02/05/19 13:40 Blood Culture - Final Blood Culture (Wb) - Right Wrist Staphylococcus aureus 02/07/19 09:40 Blood Culture - Preliminary Blood Culture (Wb) - Right Wrist Staphylococcus aureus 02/07/19 09:45 Blood Culture - Preliminary Blood Culture (Wb) - Right Hand Staphylococcus aureus 02/06/19 11:00 Blood Culture - Preliminary Blood Culture (Wb) - Venous Staphylococcus aureus 02/06/19 08:50 Blood Culture - Preliminary Blood Culture (Wb) - Anticubital Right Staphylococcus aureus Laboratory Tests Past 24 Hrs 02/10/19 04:05 Sodium 144 Potassium 4.5 Chloride 115 H Carbon Dioxide 22.0 BUN 44 H Creatinine 1.87 H Estim Creat Clear Calc 39.77 Est GFR (MDRD) Af Amer 46 L Est GFR (MDRD) Non-Af 38 L BUN/Creatinine Ratio 23.5 H Glucose 446 H Calcium 7.7 L Phosphorus 3.0 Albumin 1.4 L POC Glucose 02/10/19 02/10/19 02/09/19 08:52 06:42 22:00 POC Glucose 388 H 380 H 377 H 02/09/19 02/09/19 02/09/19 17:16 12:15 05:09 POC Glucose 271 H 135 H 110 02/09/19 02/06/19 02/06/19 01:16 15:22 15:19 POC Glucose 107 > 500 H* 412 H 02/05/19 11:53 POC Glucose > 500 H* Medical Necessity - Tobacco Use Smoking Status: Unknown if ever smoked Tobacco Use: - - Unknown tobacco history-patient not able to provide Assessment/Plan All Active Problems Hyperosmolar coma due to secondary diabetes (Acute) Hypernatremia (Acute) MSSA bacteremia (Acute) Hypoglycemia (Resolved) Hypothermia (Resolved) Altered mental state (Acute) Acute osteomyelitis of metacarpal bone (Resolved) Osteomyelitis of toe of right foot (Resolved) Right 2nd toe suspected osteomyelitis (Resolved) Right 2nd toe gangrene (Resolved) 1- Hypernatremia due to hyperglycemia correction. sodium is better 2- BRIDGETT on CKD . likely prerenal from hyperglycemia induced osmotic diuresis Cr peaked at 3.1 . Cr improved to 1.8 mg/dl which is might be his baseline Nonoliguric Keep MAP > 65 3- Hyperglycemic non ketotic hyperosmolar status Pt presented with BS > 1500. improved with IVF and insulin 4- Bacteremia: MSSA. on cefazolin 5. spinal osteo. transfer to [facility]
--- NOTE | 2019-02-10 11:20 | NURSING ---
Attempted to reach pt's by phone again, no answer and voicemail not set up with her name no did not leave a message. Verified w/pt that it was ok to call his son who is listed on demographics, he states it is ok, his is not good at answering the phone. Spoke w/pt's son, Wu LASSITER, who is aware of transfer and states he will let him mom know. Given room # and unit phone # and [facility]'s address.
--- NOTE | 2019-02-10 11:51 | NURSING ---
Yisel to stay in for transfer to another hospital for surgery consult
--- NOTE | 2019-02-10 12:05 | PCM.DC.SUM ---
Discharge Date and Diagnosis - Problem List Patient Problems: Active and Suspected Problems Hyperosmolar coma due to secondary diabetes (Acute) Hypernatremia (Acute) MSSA bacteremia (Acute) Date of Admission: 02/05/19 Date of Discharge: 02/10/19 - Primary Discharge Diagnosis Active and Suspected Problems Hyperosmolar nonketotic Hyperglycemia due to secondary diabetes (Acute)-resolved Metabolic encephalopathy secondary to hyperosmolar nonketotic hyperglycemia Hypernatremia (Acute) - due to dehydration Dehydration BRIDGETT on CRF stage III likely due to severe dehydration Severe sepsis with MSSA bacteremia (Acute) due to osteomyelitis of L1 and L2 L1-L2 osteomyelitis and discitis Bilateral psoas muscle abscesses Lumbar canal stenosis Hypokalemia-resolved Acute severe low back pain on chronic back pain Thrush and suspected esophageal candidiasis with odontophagia Paroxysmal atrial fibrillation with rapid ventricular response Dysphagia - on a nectar thick pureed diet - Secondary Discharge Diagnosis Chronic Problems CAD in [place] artery (Chronic) S/P PTCA (percutaneous transluminal coronary angioplasty) (Chronic) HTN (hypertension) (Chronic) Obesity (BMI 30-39.9) (Chronic) Hyperlipidemia (Chronic) Chronic back pain (Chronic) Chronic 2nd toe ulcer (Chronic) - resolved S/P amputation Chronic renal disease, stage III (Chronic) Coronary artery disease (Chronic) Status post stents Diabetic peripheral neuropathy (Chronic) Type II diabetes mellitus (Chronic) not adequately controlled, HGBA1C is 8 Paroxysmal atrial fibrillation (Chronic) RHONDA on BIPAP Stage II diastolic dysfunction Hospital Course and Treatment Imaging Results: Clinical Impression(s) from Imaging Studies Brain CT 02/05/19 13:17 IMPRESSION: Chronic involutional changes of the brain. Electronically Signed: Maikel Cevallos, at 14:56 EDT , Service support , Chest X-Ray 02/05/19 13:17 IMPRESSION: Findings suggestive of a mild degree of CHF with blunting of both costophrenic angles and bibasilar atelectasis. Electronically Signed: Maikel Cevallos, at 14:51 EDT , Service support , Lumbar Spine CT 02/09/19 09:40 IMPRESSION: Osteomyelitis/discitis at L1-2. Somewhat atypical presentation with marked involvement of the L1 inferior endplate but very little apparent involvement of L2. Prominent paraspinal and prevertebral inflammation. Thecal sac is not well delineated at this level and epidural abscess cannot be excluded. If not contraindicated, MRI thoracic and lumbar spine with and without gadolinium should be obtained. Electronically Signed: Christianjaciel Em, at 11:16 EDT Tel , Service support , ADDENDUM: 02/09/19 1130 ADDENDUM: 02/09/19 1136 ADDENDUM: 02/09/[address] 02/09/19 09:40 IMPRESSION: No acute abnormality of the thoracic spine. L1-2 osteomyelitis discitis partially visible, please see CT lumbar spine report. Dependent densities likely in left lung bases; most likely atelectasis with pneumonia possible. Electronically Signed: Magdiel Strickland, at 11:20 EDT Tel , Service support , Femur X-Ray 02/09/19 13:50 IMPRESSION: No acute osseous abnormality. No radiopaque foreign body is evident. Electronically Signed: Magdiel Strickland, at 14:33 EDT Tel , Service support , Tibia/Fibula X-Ray 02/09/19 13:50 IMPRESSION: No acute osseous abnormality. No apparent radiopaque foreign body. Electronically Signed: Magdiel Strickland, at 14:34 EDT Tel , Service support , Lumbar Spine MRI 02/09/19 15:07 IMPRESSION: Discitis at the L1-L2 level. The discitis has eroded into the inferior endplate of the L1 vertebral body with osteomyelitis. Due to enhancement and edema within the marrow of the posterior elements of L1 including the lamina and spinous process. There is trace edema within these pinus process of T12. There is edema and enhancement within the pedicles of L2. All this edema and enhancement is consistent with osteomyelitis. I do not appreciate an epidural abscess. There is some epidural inflammation however. Spinal canal stenosis is perhaps most severe at the L4-L5 level mostly due to facet arthropathy ligamental thickening with a small disc bulge. Spinal canal stenosis at the discitis level, the L1-L2 level is mild. There are, however, abscesses within the psoas muscles. On the right psoas muscle the abscesses 4.3 cm in long axis dimensions. On the left the abscesses extend for over 10 cm in craniocaudal dimensions along the psoas muscle. at 2305 Reported and signed by: Efrain Law MD Electronically Signed: Efrain Law MD at 23:04 EDT Tel , Service support , Laboratory Results - last 24 hr 02/05/19 02/06/19 02/06/19 11:53 15:19 15:22 Sodium Potassium Chloride Carbon Dioxide BUN Creatinine Estim Creat Clear Calc Est GFR (MDRD) Af Amer Est GFR (MDRD) Non-Af BUN/Creatinine Ratio Glucose Calcium Phosphorus Albumin POC Glucose > 500 H* 412 H > 500 H* 02/09/19 02/09/19 02/09/19 01:16 05:09 12:15 Sodium Potassium Chloride Carbon Dioxide BUN Creatinine Estim Creat Clear Calc Est GFR (MDRD) Af Amer Est GFR (MDRD) Non-Af BUN/Creatinine Ratio Glucose Calcium Phosphorus Albumin POC Glucose 107 110 135 H 02/09/19 02/09/19 02/10/19 17:16 22:00 04:05 Sodium 144 Potassium 4.5 Chloride 115 H Carbon Dioxide 22.0 BUN 44 H Creatinine 1.87 H Estim Creat Clear Calc 39.77 Est GFR (MDRD) Af Amer 46 L Est GFR (MDRD) Non-Af 38 L BUN/Creatinine Ratio 23.5 H Glucose 446 H Calcium 7.7 L Phosphorus 3.0 Albumin 1.4 L POC Glucose 271 H 377 H 02/10/19 02/10/19 06:42 08:52 Sodium Potassium Chloride Carbon Dioxide BUN Creatinine Estim Creat Clear Calc Est GFR (MDRD) Af Amer Est GFR (MDRD) Non-Af BUN/Creatinine Ratio Glucose Calcium Phosphorus Albumin POC Glucose 380 H 388 H Microbiology 02/05/19 13:30 Blood Culture (Wb) - Left Forearm Bacteria Detection (PCR) - Final Staphylococcus aureus 02/05/19 13:30 Blood Culture (Wb) - Left Forearm Blood Culture - Final Staphylococcus aureus 02/05/19 13:40 Blood Culture (Wb) - Right Wrist Blood Culture - Final Staphylococcus aureus 02/07/19 09:40 Blood Culture (Wb) - Right Wrist Blood Culture - Preliminary Staphylococcus aureus 02/07/19 09:45 Blood Culture (Wb) - Right Hand Blood Culture - Preliminary Staphylococcus aureus 02/06/19 11:00 Blood Culture (Wb) - Venous Blood Culture - Preliminary Staphylococcus aureus 02/06/19 08:50 Blood Culture (Wb) - Anticubital Right Blood Culture - Preliminary Staphylococcus aureus 02/09 BC's are pending at the time of DC Dr. Adalid Irene and Dr. Alin Zabala-industrial manufacturing technician Dr. Troy Godinez-cardiology Dr. Nigel Rodgers-infectious disease Dr. Gomes-nephrology Operations: None, - - Amputation of the right second toe on 12/[address] Thony Helms Procedures: 2-D Echocardiogram - Interpretation Summary The estimated ejection fraction is 65 %. Stage 2 diastolic dysfunction. Trivial tricuspid valve insufficiency. Right ventricular systolic pressure estimated to be 29 mmHg. There is no comparison study available. Summary of Care Provided: Mr. Kaufman is a 69-year-old male with a past medical history of paroxysmal atrial fibrillation, coronary artery disease with PCI in 2001 in 2008, diabetes mellitus type 2, chronic anticoagulation with warfarin, hypertension,RHONDA , peripheral vascular disease, hyperlipidemia, left carotid stenosis, orthostatic hypotension and chronic renal failure who presented to [facility] emergency department on 02/05/2019 by squad with a complaint of decreased mental status and level of consciousness. Lab in the emergency department showed a white blood cell count of 13.8 with 89% neutrophils. Hemoglobin was low at 12.2 and platelets were within normal limits. He had macrocytic indices. INR was subtherapeutic at 1.9. Sodium was low at 129 and the serum bicarb was low at 19. The BUN was 62 with a creatinine of 3.17 and a creatinine clearance of only 22. The last creatinine we have on him is from 2017 and at that time it ranged from 1.57-2.16. The serum glucose was 1566. Lactic acid was 2. Troponin was within normal limits. Urine had 0 WBCs and 0 RBCs. There was a small amount of acetone in the blood. He c/o chronic low back pain when he was able He takes Tylenol for pain. No recent epidurals. A noncontrasted CT of the brain showed involutional changes only with no acute findings. Chest x-ray was reported as being suggestive of a mild degree of CHF with blunting of both costophrenic angles and bibasilar atelectasis but it was not a good inspiration. He was in NSR at admission. He was admitted to the intensive care unit with a diagnosis of hyperosmolar nonketotic hyperglycemia and started on an insulin drip and IV fluids. He was made NPO due to lethargy and acute metabolic encephalopathy. He was started on subcutaneous heparin for DVT prophylaxis. Dr. Irene was consulted to participate in management. An echocardiogram was obtained and showed a 65% EF with no wall motion abnormalities. There was stage II diastolic dysfunction and trivial TR. The left and right atria were normal. The right ventricular systolic pressure was estimated at 29. There were no vegetations present. Blood cultures from 02/05, 02/06, and 02/07 were all positive for methicillin sensitive staph aureus. The BC's from 02/05/2019 became positive in less than 24 hours and he was started on vancomycin by the night hospitalist. He was later transitioned to [facility] when the bacteria was identified as MSSA. No source of infection was initially identified. All oral medications were held at admission, including Multaq. Lopressor 5 mg IV Q 6 hours was ordered. He went into AF with RVR after admission. The HR was not controlled with Lopressor IV. He was approved for a pur?ed diet with nectar thick liquids on 02/08/2019 following an evaluation by speech therapy. All medications need to be crushed and placed in applesauce or pur?ed food. Multaq can not be crushed. Cardiology was consulted and the pt was started on an Amiodarone infusion on 02/09. On 02/10 the HR was in the 70's and 80's and although he was still in AF the rhythm is starting to look more regular. On 02/[address] scan of the Thoracic and LS spine showed osteomyelitis/discitis at L1-2. There was marked involvement of the L1 inferior endplate. There was prominent paraspinal and prevertebral inflammation with edema of the right greater than left psoas muscles highly suspicious for infectious myositis. He was sent for MRI of the LS spine with and without gadolinium. Please see the MRI report below. On PE on 02/09 he had white yellow coating on his tongue and he was c/o painful swallowing. He was started on renally dose IV Difucan. The following day the coating had decreased somewhat. He is presumed to have esophageal candidiasis and will likely need 14 days of Diflucan. On 02/10 he was very alert and appropriate. He was eating and drinking very well and blood sugars had increased. Lantus and Humalog dosages were adjusted. The abscess will need to be drained and he will need to see a neurosurgeon to evaluated the MRI and possibly intervene surgically. Because we are unable to do this at a small [facility] I was in contact with [facility] and they graciously agreed to take the pt in transfer. I spoke with cariology on the day of DC and he will be transitioned to oral Amiodarone 200 mg daily prior to DC. - Physical Exam General: Alert, Cooperative, No apparent distress, - - CAM negative, more alert and conversant than yesterday. Still c/o 10/10 pain in his back. HEENT: Atraumatic, PERRLA, EOMI, Normocephalic Oral: Dry Mucosa, - - tongue is coated with white yellow adherent stuff, but less than 10/7 since starting on Diflucan. There is PND in the posterior pharynx and erythema.......no exudate Neck: Supple, Negative Carotid Bruits, No Nuchal Rigidity, Trachea Midline Lungs: Clear to auscultation - anterior, posterior and lateral, Tachypneic Cardiovascular: - - AF on the tele monitor. Rate is better controlled with the addition of amiodarone to his drug regimen and is currently in the 7-90 range. Abdomen: Bowel Sounds Present, Soft, Non Tender, Non-Distended Extremities: No clubbing, No cyanosis, No Calf Tenderness, Diminished Peripheral Pulses - in the feet, radial pulses are 3/3, - - nail beds are pale Skin: No rashes, - - he has scabs on the upper extremities.....no evidence of infection. There are no open areas on the back and he has pain with rolling him on his side but can not localize to any 1 specific area with palpation over the vertebrae. No redness and no areas of increased warmth Musculoskeletal: Arthritic Changes Neurological: Cranial nerves II-XII grossly intact, Neuro grossly intact Psych/Mental Status: Appropriate, more conversant today and not as flat IMPRESSION: Discitis at the L1-L2 level. The discitis has eroded into the inferior endplate of the L1 vertebral body with osteomyelitis. Due to enhancement and edema within the marrow of the posterior elements of L1 including the lamina and spinous process. There is trace edema within these pinus process of T12. There is edema and enhancement within the pedicles of L2. All this edema and enhancement is consistent with osteomyelitis. I do not appreciate an epidural abscess. There is some epidural inflammation however. Spinal canal stenosis is perhaps most severe at the L4-L5 level mostly due to facet arthropathy ligamental thickening with a small disc bulge. Spinal canal stenosis at the discitis level, the L1-L2 level is mild. There are, however, abscesses within the psoas muscles. On the right psoas muscle the abscesses 4.3 cm in long axis dimensions. On the left the abscesses extend for over 10 cm in craniocaudal dimensions along the psoas muscle Interpretation Summary The estimated ejection fraction is 65 %. Stage 2 diastolic dysfunction. Trivial tricuspid valve insufficiency. Right ventricular systolic pressure estimated to be 29 mmHg. There is no comparison study available. This note was generated with [employer]okeation software. It may contain incorrect words, spelling, and punctuation that were not noted in checking the note before signing. Patient Problems: Active and Suspected Problems Hyperosmolar coma due to secondary diabetes (Acute) Hypernatremia (Acute) MSSA bacteremia (Acute) - Physical Exam Vital Signs Temp Pulse Resp BP Pulse Ox 97.0 F L 81 37 H 105/59 L 98 02/10/19 08:00 02/10/19 11:00 02/10/19 11:00 02/10/19 11:00 02/10/19 11:00 Oxygen Flow Rate (L/min) 2 Oxygen Delivery Method Room Air Weight: 192 lb 3.889 oz Body Mass Index (BMI) 24.5 Finger Stick Blood Glucose 76 Intake and Output for Last 24 Hours 02/08/19 02/09/19 02/10/19 23:59 23:59 23:59 Intake Total 4666.15 / 4666.15 3355.00 / 3355.00 413 / 413 Output Total 1775 / 2350 1650 / 2050 900 / 900 Balance 2891.15 / 2316.15 1705.00 / 1305.00 -487 / -487 Microbiology Past 72 Hours 02/05/19 13:30 Bacteria Detection (PCR) - Final Blood Culture (Wb) - Left Forearm Staphylococcus aureus Blood Culture - Final Staphylococcus aureus 02/05/19 13:40 Blood Culture - Final Blood Culture (Wb) - Right Wrist Staphylococcus aureus 02/07/19 09:40 Blood Culture - Preliminary Blood Culture (Wb) - Right Wrist Staphylococcus aureus 02/07/19 09:45 Blood Culture - Preliminary Blood Culture (Wb) - Right Hand Staphylococcus aureus 02/06/19 11:00 Blood Culture - Preliminary Blood Culture (Wb) - Venous Staphylococcus aureus 02/06/19 08:50 Blood Culture - Preliminary Blood Culture (Wb) - Anticubital Right Staphylococcus aureus Laboratory Tests Past 24 Hrs 02/10/19 04:05 Sodium 144 Potassium 4.5 Chloride 115 H Carbon Dioxide 22.0 BUN 44 H Creatinine 1.87 H Estim Creat Clear Calc 39.77 Est GFR (MDRD) Af Amer 46 L Est GFR (MDRD) Non-Af 38 L BUN/Creatinine Ratio 23.5 H Glucose 446 H Calcium 7.7 L Phosphorus 3.0 Albumin 1.4 L POC Glucose 02/10/19 02/10/19 02/09/19 08:52 06:42 22:00 POC Glucose 388 H 380 H 377 H 02/09/19 02/09/19 02/09/19 17:16 12:15 05:09 POC Glucose 271 H 135 H 110 02/09/19 02/06/19 02/06/19 01:16 15:22 15:19 POC Glucose 107 > 500 H* 412 H 02/05/19 11:53 POC Glucose > 500 H* Home Medications: Medications to take at Discharge Atorvastatin Calcium [Lipitor] 40 mg PO QHS 03/25/14 Clopidogrel Bisulfate [Plavix] 75 mg PO DAILY 03/25/14 Isosorbide Mononitrate [Isosorbide Mononitrate ER] 30 mg PO DAILY 07/08/14 Linagliptin [Tradjenta] 5 mg PO DAILY 12/06/15 Acetaminophen [Tylenol Tablet] 650 mg PO Q6H PRN PRN #0 tablet 12/14/15 Albuterol Inhaler [Ventolin Hfa] 2 puff INHALATION Q4H PRN PRN #1 12/14/15 Gabapentin [Neurontin] 300 mg PO BIDCM capsule 12/14/15 Nitroglycerin (INPATIENT USE) [Nitrostat] 0.4 mg SUBLINGUAL Q5M PRN #0 tablet 12/14/15 Furosemide [Lasix] 20 mg PO BIDLX 01/13/17 Metoprolol Tartrate [Lopressor (beta cordelia)] 12.5 mg PO BID 01/13/17 Warfarin [Coumadin] 5 mg PO [id number] 01/13/17 Warfarin [Coumadin] 12.5 mg PO SUTUTH 01/13/17 Budesonide/Formoterol Fumarate [Symbicort 80-4.5 Mcg Inhaler] 2 puff INHALATION BID 02/05/19 Dronedarone Hydrochloride [Multaq] 400 mg PO BID 02/05/19 Famotidine 40 mg PO DAILY 02/05/19 Fluticasone 0.05% [Flonase Nasal [place]] 1 spray NARES BID 02/05/19 Insulin Aspart [Novolog Flexpen] 30 units SUBCUT TIDCM 02/05/19 Insulin Detemir [Levemir FlexPen] 25 units SUBCUT BID 02/05/19 Primary Care Physician: Anthony Petersen MD [Primary Care Provider] - Disposition: Acute care Hospital - [facility] Minutes spent on discharge:: 50 Patient Condition:: Guarded Medical Necessity - Tobacco Use Smoking Status: Never smoker Tobacco Use: - - Unknown tobacco history-patient not able to provide Meaningful Use Info Meaningful Use Diagnoses (Choose all that apply): None applicable Code Visit Inpatient E&M: 39329 Disch Hosp
[2019-02-10 12:21] LABS: Bedside Glucose 496 mg/dL (70-110)
[2019-02-10] MEDS: Amiodarone 200 MG Tablet PO (12:37)
[2019-02-10] MEDS: Insulin Lispro 100 UNIT/ML INSULN.PEN 25 UNIT SC (12:38)
[2019-02-10] MEDS: 0.9% NaCl Peripheral Flush Adult/Peds IV ×3 (12:38→14:08)
--- NOTE | 2019-02-10 12:50 | CHAPLAIN ---
Type of Pastoral Visit _x__ Initial Visit ___ Follow-up Visit ___ On-call Visit ___ General Patient Visit ___ Spiritual Assessment ___ Family Conference ___ Bereavement ___ Rapid Response ___ Code Blue ___ Other (describe below) Pastoral Care Referral From _x__ Patient ___ Family _x__ Nurse ___ Physician ___ Form Tamper Operator ___ Cyber Systems Administrator ___ Other (describe below) Sacrament/Intervention _x__ Active listening ___ Anointing ___ Nondenominational ___ Bereavement ___ Communion ___ Yulia exploration ___ ___ Life review _x__ Prayer ___ Reconciliation ___ Sacrament of Sick _x__ Supportive presence ___ Wedding ___ Other (describe below) Pastoral Comments
[2019-02-10] MEDS: 0.45% Normal Saline 1,000 ML 500 ML IV (13:22)
[2019-02-10 14:05] LABS: Bedside Glucose 493 mg/dL (70-110)
[2019-02-10] MEDS: Insulin Lispro 10 UNIT in Syringe 0 ML 6 UNIT IV (14:34)
[2019-02-10] MEDS: oxyCODONE 5 MG Tablet PO (14:48)
[2019-02-10 15:10] LABS: Bedside Glucose 438 mg/dL (70-110)
== END 2019-02-10 15:10 | disposition short-term general hospital (02) | DRG 871 ==
LOC: ED 13:09 → ICU 14:51
PROVIDERS: Internal Medicine Critical Care Medicine; Internal Medicine Nephrology; Admitting Provider Internal Medicine; Emergency Provider Emergency Medicine; Family Provider Family Medicine; PCP Family Medicine; Visit Provider Internal Medicine
DX: A41.01 Sepsis due to Methicillin susceptible Staphylococcus aureus (principal); E11.00 Type 2 diabetes mellitus with hyperosmolarity without nonketotic hyperglycemic-hyperosmolar coma (NKHHC); G93.41 Metabolic encephalopathy; J96.02 Acute respiratory failure with hypercapnia; K68.12 Psoas muscle abscess; B37.81 Candidal esophagitis; E87.0 Hyperosmolality and hypernatremia; E87.1 Hypo-osmolality and hyponatremia; E87.2 Acidosis; I13.0 Hypertensive heart and chronic kidney disease with heart failure and stage 1 through stage 4 chronic kidney disease, or unspecified chronic kidney disease; I50.32 Chronic diastolic (congestive) heart failure; M46.26 Osteomyelitis of vertebra, lumbar region; N17.9 Acute kidney failure, unspecified; R65.20 Severe sepsis without septic shock; E11.22 Type 2 diabetes mellitus with diabetic chronic kidney disease; E11.42 Type 2 diabetes mellitus with diabetic polyneuropathy; E78.5 Hyperlipidemia, unspecified; E86.0 Dehydration; E87.6 Hypokalemia; G47.33 Obstructive sleep apnea (adult) (pediatric); I25.10 Atherosclerotic heart disease of native coronary artery without angina pectoris; I48.0 Paroxysmal atrial fibrillation; M46.46 Discitis, unspecified, lumbar region; M48.061 Spinal stenosis, lumbar region without neurogenic claudication; N18.3 Chronic kidney disease, stage 3 (moderate); Z79.01 Long term (current) use of anticoagulants; Z79.4 Long term (current) use of insulin; Z95.5 Presence of coronary angioplasty implant and graft
CPT/HCPCS: 36415; 36600; 70450; 71045; 72128; 72131; 72158; 73551; 73590; 80048; 80069; 80076; 81001; 82009; 82570; 82803; 82947; 82962; 83036; 83605; 83735; 83930; 83935; 84100; 84295; 84300; 84484; 85025; 85610; 87040; 87077; 87149; 87186; 92526; 93005; 93306; 94002; 94003; 97162; 97166; 97802; 99285; A9575; J7030; J7050; P9612; Q9957; A4216; C8929; J2405; J7799

== ENCOUNTER 2019-03-01 04:35 | Emergency (ER) | payer MEDICARE, MEDICAID, SELFPAY ==
[2019-02-05 15:18] VITALS: BMI 24.5
[2019-03-01] VITALS (10 sets, daily range): BP systolic 126–140; BP diastolic 50–70; PULSE 85–99; RESP 16–24; TEMP 36.8–37.3; O2SAT 78–100; BMI 30.6
--- NOTE | 2019-03-01 04:45 | RAD_ITS ---
STUDY: X-RAY CHEST REASON FOR EXAM: Male, 69 years old. Chest pain. TECHNIQUE: Single AP portable view of the chest. COMPARISON: 02/05/2019. FINDINGS: The lungs are normally expanded with right moderate pleural effusion. There is diffuse right-sided perihilar airspace opacity with fullness of the central markings symmetrically congestive heart failure versus right-sided pneumonia. Heart is enlarged. Normal mediastinum and fco. Normal visualized pulmonary arteries. There is atherosclerotic calcification of the aortic arch with tortuosity. Suboptimally visualized thoracic spine. Normal visualized ribs, clavicles, and shoulders. There is no demonstrated abnormality of the visualized soft tissue structures of the upper abdomen. RAD/Chest 1 View (Portable) IMPRESSION: Right-sided pneumonia versus asymmetric congestive heart failure. Right-sided pleural effusion. Electronically Signed: Debbie Hinton MD at 6:06 EDT , Service support ,
--- NOTE | 2019-03-01 04:46 | CT_ITS ---
STUDY: CT ABDOMEN AND PELVIS WITHOUT CONTRAST REASON FOR EXAM: Male, 69 years old. Groin pain, shortness of breath. Psoas muscle drains for abscess. RADIATION DOSAGE (If Supplied By Facility): CTDIvol = ( 17.54 ) mGy, DLP = ( 1012.40 ) mGycm TECHNIQUE: Transaxial images were obtained from the dome of the diaphragm to the symphysis pubis without oral contrast, and without intravenous contrast. Sagittal and coronal images were reconstructed. Individualized dose optimization techniques were used for this CT. COMPARISON: None. FINDINGS: There is bilateral lower lobe consolidation compatible with pneumonia, right more significant compared to the left. There are mild to moderate bilateral pleural effusions. Heart is borderline enlarged. There is a right-sided central line in place. Coronary artery calcifications noted. Normal liver. Slightly overdistended, otherwise normal gallbladder and extrahepatic biliary system. Normal spleen. There is diffuse atrophy of the pancreas. Normal bilateral adrenal glands. There is nonspecific bilateral perinephric stranding, otherwise normal right kidney. Normal left kidney. Normal visualized stomach. Normal small intestine. There is nonspecific fecal debris within the colon. The appendix is visualized and appears normal. There is diffuse atherosclerotic calcification of the abdominal aorta, without a demonstrated aneurysm. Normal inferior vena cava. There is a left-sided psoas catheter in place with no distinct fluid collection seen. There is a second right-sided sauce catheter in place with no distinct fluid collection. There are destructive changes at the L1 vertebral body consistent with known osteomyelitis. Normal urinary bladder. Normal visualized prostate gland. Normal abdominal wall. There are diffuse degenerative changes of the visualized lumbar spine. There is nonspecific inflammation versus edema involving the subcutaneous fat along the lateral aspect of the bilateral buttock region, nonspecific. CT/Abdomen/Pelvis without Cont IMPRESSION: Slightly over distended gallbladder otherwise unremarkable. Nonspecific perinephric stranding with mild pancreatic atrophy. The remainder of the abdominal viscera are unremarkable. Destructive changes of the lumbar vertebral body with some loss catheter is in place. No focal inflammatory process throughout the gastrointestinal tract seen. No bowel obstruction. Electronically Signed: Debbie Hinton MD at 6:16 EDT , Service support ,
[2019-03-01 05:01] LABS: Bedside Glucose 170 mg/dL (70-110)
[2019-03-01] MEDS: Ondansetron 4 MG/2 ML Vial IV (05:03)
[2019-03-01] MEDS: Morphine 4 MG/ML Syringe IV (05:05)
[2019-03-01 05:40] LABS: Absolute Lymphocyte Count 0.41 X10^3/uL (0.83-4.51); Absolute Neutrophil Count 3.9 X10^3/uL (2.0-7.7); Basophil# 0.02 X10^3/uL; Basophil% 0.4 % (0-1); Eosinophil# 0.03 X10^3/uL; Eosinophils% 0.6 % (0-5); Hematocrit 16.5 % (40-54); Lymphocyte # 0.41 X10^3/ul (4.0); Lymphocyte % 8.1 % (19-41); Mean Corp Hgb Conc 29.1 g/dL (32-36); Mean Corpuscular Hgb 28.9 pg (27.0-32.0); Mean Corpuscular Volume 99.4 fL (80-94); Mean Platelet Vol. 9.9 fl (6.2-12.0); Monocyte# 0.57 X10^3/uL; Monocyte% 11.2 % (0-10); NRBC Flagged by Analyzer 0 % (0-5); Neutrophil # 3.94 X10^3/uL (2.7-7.7); Neutrophil % 77.5 % (47-70); POSITIVE COUNT YES; POSITIVE DIFFERENTIAL YES; POSITIVE MORPHOLOGY YES; Platelet Count 283 K/mm3 (150-450); RBC Distribution Width CV 17.2 % (11.6-14.6); RBC Distribution Width SD 62.9 fl (35.1-43.9); Red Blood Count 1.66 M/mm3 (4.6-6.2); White Blood Count 5.1 K/mm3 (4.4-11.0)
[2019-03-01 05:47] LABS: International Normalized Ratio 3.3; Prothrombin Time (Protime)PT. 33.4 SECONDS (11.7-14.9)
--- NOTE | 2019-03-01 05:57 | EKG12_ITS ---
Test Reason : SOB Blood Pressure : / mmHG Vent. Rate : 094 BPM Atrial Rate : 094 BPM P-R Int : 218 ms QRS Dur : 078 ms QT Int : 364 ms P-R-T Axes : 102 019 166 degrees QTc Int : 455 ms Sinus rhythm with 1st degree A-V block with Premature supraventricular complexes Low voltage QRS ST & T wave abnormality, consider inferior ischemia Abnormal ECG Confirmed by OMAR BUCHANAN, RICCARDO ([id number]), department editor HUI ERVIN ([id number]) on 03/03/2019 11:03:12 AM Referred By: Confirmed By:RICCARDO NELSON MD
[2019-03-01 05:58] LABS: Differential Indicated SCAN CRITERIA MET; Hemoglobin 4.8 g/dL (13.0-16.5)
[2019-03-01 06:04] LABS: Mucous, Urine 0 SEEN /hpf (<or=2+)
[2019-03-01 06:07] LABS: Lactic Acid 0.8 mmol/L (0.4-2.0)
[2019-03-01 06:17] LABS: ALB/GLOB Ratio 0.2 RATIO (0.9-2.4); AST(SGOT) 36 U/L (15-37); Alanine Aminotransfer ALT/SGPT < 6 U/L (16-61); Albumin, Serum 1.1 g/dL (3.2-5.0); Alkaline Phosphatase 76 U/L (45-117); Anion Gap 4 (5-15); BUN 43 mg/dL (7-18); BUN/Creat Ratio 27.2 RATIO (10-20); Calcium,Total 7.5 mg/dL (8.5-10.1); Chloride 102 mmol/L (98-107); Creatinine, Serum 1.58 mg/dL (0.70-1.30); EST Glomerular Filtration Rate 46 mL/min (>60); Est Glom Filt Rate - Afr Amer 56 mL/min (>60); Estimated Creatinine Clearance 44.28 ml/min; Glucose 175 mg/dL (74-106); Potassium 3.7 mmol/L (3.5-5.1); Protein, Total 6.1 g/dL (6.4-8.2); Sodium Level 139 mmol/L (136-145)
[2019-03-01 06:33] LABS: Anisocytosis 3+; Differential Comment SCANNED; Hypochromasia 3+; Polychromasia 1+
[2019-03-01 06:34] LABS: Microcytosis 1+
--- NOTE | 2019-03-01 06:36 | ED.RN ---
patient presents with bilateral drains from alf. both drains are located in the flank region. looking at previous records drains for for abscesses of the psoas muscles treatment at [facility]
[2019-03-01 06:37] LABS: Color, Urine Yellow (Yellow); Glucose, Dipstick 100 mg/dl (Normal); Ketone-Dipstick Negative (Negative); Leukocyte Esterase-Dipstick 25 /ul (Negative); Nitrite-Dipstick Negative (Negative); Occult Blood-Urine 150 /ul (Negative); Protein-Dipstick 30 mg/dl (Negative); Urine Bilirubin Dipstick Negative (Negative); Urine Clarity Clear (Clear); Urine Urobilinogen Normal (Normal)
[2019-03-01 06:38] LABS: Squamous Epithelial Cells - UA 0-5 SEEN /hpf (0-5); White Blood Cells 0-5 SEEN /hpf (0-5)
[2019-03-01 06:39] LABS: Bacteria RARE /hpf (None Seen); Red Blood Cells-Urine 0-5 SEEN /hpf (0-5)
--- NOTE | 2019-03-01 07:31 | ED.DCSUM_ITS ---
- ER Visit Summary Date of Service: 03/01/19 Chief Complaint: [Shortness of breath and abdominal pain] History of Present Illness: The patient is a 69 M [presents to the emergency department with complaint of dyspnea and right lower quadrant abdominal pain. Patient has not been feeling well for the last 2 to 3 days. Patient is currently in a [facility]. 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 Patient was transferred to [facility] where he had drains placed in both abscesses. Patient has a PICC line in his left chest. Patient is receiving cefazolin IV at the [facility]. Patient complains of a cough that is mostly nonproductive. Patient currently nonambulatory. Patient was noted to have a temperature up to 101 at the [facility]. Patient was noted to have low pulse ox despite being on his 4 5 L of O2. Patient sent to the ER for evaluation. Patient with history of coronary artery disease, diabetes, hypertension, high cholesterol, atrial fibrillation. Patient on Coumadin.] Physical Examination: [HEENT-PERRLA, EOMI. Cranial nerves II through XII grossly intact. TMs clear. Mucous membranes dry. No adenopathy. Cardiovascular-regular rate and rhythm without murmur or ectopy Lungs-finished in the bases with some rales noted bilaterally right greater than left. Patient has mild tachypnea. No accessory muscle use or retractions. Abdomen-normoactive bowel sounds, soft. Patient has some tenderness of the right lower quadrant and right pelvic region. No abdominal wall hematomas noted. Rectal exam-patient had dark brown stool that was Hemoccult negative. Patient was noted to have a small pressure type ulceration to the scrotum with some faint erythema. Extremities-intact ?4, normal range of motion, normal pulses, atraumatic. Patient has +2 edema both lower extremities.] Test Results: [EKG obtained arrival shows sinus rhythm with a ventricular rate of [address] changes. CBC with differential showed a white count 5.1, hemoglobin 4.8, hematocrit 16, platelets 283. Chemistries unremarkable. BUN was 43 and creatinine 1.58. LFTs unremarkable. INR was 3.3. Urinalysis unremarkable. Troponin was 0.223. Hemoccult stool was negative. Chest x-ray obtained showed suspected right-sided pneumonia versus atypical CHF with a right-sided effusion. CT scan of the abdomen pelvis showed bilateral infiltrates and consolidations. Patient had bilateral perinephric stranding. Patient had slight distention of the gallbladder.] Lactate level was 0.8. Emergency Department Course and Treatment: Patient was typed and crossed for 2 units packed red blood cells. Patient was given normal saline. Patient started on vancomycin and Zosyn. Patient was given vitamin K 5 mg IV.] Treatment Plan: [Case was discussed with hospitalist who recommended transfer back to [facility] where patient was just recently released from. I discussed case with [facility] physician who accepted transfer of patient. Dr. Beal was the hospitalist I spoke with. I also spoke initially with the cable armorer there who recommended for admission. Blood cultures ordered and pending.] Disposition: [Transfer to [facility]] Impression: [[facility] acquired pneumonia Abdominal pain-etiology uncertain Osteomyelitis of the lumbar spine Bilateral Psoas muscle drains] This note was generated with [employer] dictation software. It may contain incorrect words, spelling, and punctuation that were not noted in review of the chart prior to signing ED Disposition - Plan for ED Patient: Referrals: Troy Parker MD [Primary Care Provider] -
--- NOTE | 2019-03-01 07:44 | NURSING ---
[facility] 7W [id number] NURSE TO NURSE [phone] MARLENI TATE
--- NOTE | 2019-03-01 07:46 | NURSING ---
NEW BED 742 B
--- NOTE | 2019-03-01 08:09 | NURSING ---
0747 CALLED [facility] FOR TRANSPORT. ETA IS 25 TO 30 MIN
[2019-03-02 11:50] LABS: Pathologist Review Reviewed
== END 2019-03-01 08:33 | disposition short-term general hospital (02) ==
PROVIDERS: Emergency Provider Emergency Medicine; Family Provider Family Medicine; PCP Family Medicine
DX: D64.9 Anemia, unspecified (principal); J18.9 Pneumonia, unspecified organism; R10.9 Unspecified abdominal pain; M46.26 Osteomyelitis of vertebra, lumbar region; I25.10 Atherosclerotic heart disease of native coronary artery without angina pectoris; E11.9 Type 2 diabetes mellitus without complications; I10 Essential (primary) hypertension; E78.00 Pure hypercholesterolemia, unspecified; I48.91 Unspecified atrial fibrillation; Z79.01 Long term (current) use of anticoagulants; J90 Pleural effusion, not elsewhere classified
CPT/HCPCS: 36415; 36430; 36592; 71045; 74176; 80053; 81001; 82274; 82962; 83605; 84484; 85025; 85610; 86850; 86900; 86901; 86920; 86922; 87040; 87086; 93005; 96365; 96366; 96367; 96375; 99285; J7040; J7050; P9016; P9612; A4216; J2405; J3490

== ENCOUNTER 2019-03-11 11:25 | Emergency (ER) | payer MEDICARE, MEDICAID, SELFPAY ==
[2019-03-01 04:37] VITALS: BMI 30.6
[2019-03-11 11:26] VITALS: BP 128/98; PULSE 99; RESP 20; TEMP 36.9; O2SAT 91; BMI 32.2
--- NOTE | 2019-03-11 12:12 | RAD_ITS ---
STUDY: X-RAY - PELVIS REASON FOR EXAM: Male, 69 years old. Atraumatic right groin pain. TECHNIQUE: One view of the pelvis was obtained. COMPARISON: None. FINDINGS: There is a non-specific bowel gas pattern. A drainage catheter is seen overlying the left mid abdomen. Moderate amount of fecal material is seen in the colon. There is narrowing with cortical sclerosis and osteophyte formation of the sacroiliac joint consistent with degenerative osteoarthritic changes. Normal visualized bilateral superior and inferior pubic rami. There are degenerative changes of the pubic symphysis with articular narrowing and sclerosis. Normal ischial tuberosities. Normal visualized right femoral head. Normal right acetabulum. There is mild articular joint space narrowing of the right hip. Normal visualized left femoral head. Normal left acetabulum. There is mild articular joint space narrowing of the left hip. RAD/Pelvis 1 or 2 Views IMPRESSION: No fracture is seen. Electronically Signed: Maikel Cevallos, at 13:25 EST , Service support ,
--- NOTE | 2019-03-11 12:14 | ED.DCSUM_ITS ---
- ER Visit Summary Date of Service: 03/11/19 Chief Complaint: Right groin pain History of Present Illness: The patient is a 69 M 2-week history of atraumatic right groin pain. Denies any lump no prior hernia. Denies any dysuria. He is a [facility] patient. He has a history of diabetes, hypertension, renal insufficiency, anemia. Had recent back surgery for abscesses and spinal osteomyelitis. He denies any dysuria. He denies any fever. States he has had some nausea and vomiting. Denies any testicular pain. Physical Examination: Older male lying in bed vital signs stable afebrile. He does not look septic or toxic. He is in no acute distress. H EENT exam is unremarkable. Neck nontender. Lungs coarse breath sounds bilaterally. Heart regular rhythm no murmur. Abdomen morbidly obese but soft. Nontender. Nondistended. Normal bowel sounds. He complains of discomfort in his right groin but there is no abscess. There is no hernia. There is no mass. Otherwise abdomen is nontender. Right upper right lower quadrant unremarkable. No signs of obstruction. No distention. No pulsatile mass or peritoneal signs. External exam normal circumcised penis. Scrotum and testicles are nontender without masses redness or swelling. Patient moving all 4 extremities. Both hips are nontender. There is no shortening or rotation. There is no redness or warmth. Neurologically is awake and alert. Back exam is healing well. There is no cellulitis. He has a drain in place. Test Results: CBC shows normal white count of 10. Hemoglobin is 8.2 previously was 4.8. Patient states he was just recently transfused. Letter lites are unremarkable. Urine normal. No signs of infection. Pelvis x-ray showed no acute fracture. Read both by myself and radiologist. One view. Emergency Department Course and Treatment: Clinically I do not see any signs of an hernia or abscess. His abdomen is benign. Will get screening labs and urinalysis. I am getting an x-ray but there is no history of trauma I think is very unlikely that is a pelvic or hip fracture. Repeat exam at 1525 PM he is doing well. Reexamination of his right groin again says no hernia. No redness. No swelling. Currently is not having any pain. He and I discussed all his normal test results. I did not have a specific answer for his pain. Treatment Plan: Repeat evaluation by his primary care physician. Disposition: Discharge Impression: Acute right groin pain uncertain etiology This note was generated with [employer] dictation software. It may contain incorrect words, spelling, and punctuation that were not noted in review of the chart prior to signing ED Disposition - Plan for ED Patient: Referrals: Troy Parker MD [Primary Care Provider] -
[2019-03-11 12:59] LABS: Absolute Lymphocyte Count 0.58 X10^3/uL (0.83-4.51); Basophil# 0.04 X10^3/uL; Basophil% 0.4 % (0-1); Eosinophil# 0.15 X10^3/uL; Eosinophils% 1.5 % (0-5); Hematocrit 26.6 % (40-54); Hemoglobin 8.2 g/dL (13.0-16.5); Lymphocyte # 0.58 X10^3/ul (4.0); Lymphocyte % 5.7 % (19-41); Mean Corp Hgb Conc 30.8 g/dL (32-36); Mean Corpuscular Hgb 29.3 pg (27.0-32.0); Mean Platelet Vol. 8.8 fl (6.2-12.0); Monocyte# 1.24 X10^3/uL; Monocyte% 12.2 % (0-10); NRBC Flagged by Analyzer 0 % (0-5); Neutrophil % 78.3 % (47-70); POSITIVE DIFFERENTIAL YES; Platelet Count 328 K/mm3 (150-450); RBC Distribution Width CV 16.5 % (11.6-14.6); RBC Distribution Width SD 56.9 fl (35.1-43.9); White Blood Count 10.2 K/mm3 (4.4-11.0)
[2019-03-11 13:00] VITALS: BP 134/66; PULSE 71; RESP 16; TEMP 36.7; O2SAT 91
[2019-03-11 13:00] LABS: Differential Indicated SCAN CRITERIA MET
[2019-03-11 13:13] LABS: Anion Gap 4 (5-15); BUN 17 mg/dL (7-18); BUN/Creat Ratio 14.4 RATIO (10-20); Calcium,Total 8.2 mg/dL (8.5-10.1); Chloride 98 mmol/L (98-107); Creatinine, Serum 1.18 mg/dL (0.70-1.30); EST Glomerular Filtration Rate 65 mL/min (>60); Est Glom Filt Rate - Afr Amer 78 mL/min (>60); Estimated Creatinine Clearance 51.81 ml/min; Glucose 82 mg/dL (74-106); Potassium 3.5 mmol/L (3.5-5.1); Sodium Level 138 mmol/L (136-145)
[2019-03-11 13:35] VITALS: BP 154/81; PULSE 90; RESP 14; O2SAT 90
[2019-03-11 13:39] LABS: Bacteria 0 SEEN /hpf (None Seen); Mucous, Urine 0 SEEN /hpf (<or=2+); Red Blood Cells-Urine 0 SEEN /hpf (0-5); Squamous Epithelial Cells - UA 0 SEEN /hpf (0-5); White Blood Cells 0 SEEN /hpf (0-5)
[2019-03-11 13:51] LABS: Color, Urine Yellow (Yellow); Glucose, Dipstick 100 mg/dl (Normal); Ketone-Dipstick 5 mg/dl (Negative); Leukocyte Esterase-Dipstick Negative /ul (Negative); Nitrite-Dipstick Negative (Negative); Occult Blood-Urine Negative /ul (Negative); Protein-Dipstick 30 mg/dl (Negative); Specific Gravity, Urine 1.005 (1.002-1.030); Urine Bilirubin Dipstick Negative (Negative); Urine Clarity Clear (Clear); Urine Urobilinogen Normal (Normal)
[2019-03-11 14:00] VITALS: BP 135/65; PULSE 89; RESP 16; TEMP 36.6; O2SAT 92
[2019-03-11 15:00] VITALS: BP 152/73; PULSE 90; RESP 18; TEMP 36.8; O2SAT 92
--- NOTE | 2019-03-11 15:32 | ED.DEP ---
ED Disposition - Plan for ED Patient: Disposition: Home or Assisted Living Referrals: Troy Parker MD [Primary Care Provider] - 3-5 Days Additional Instructions: Follow-up with primary care provider. All his labs and x-ray of his right hip and pelvis was unremarkable today. There is no specific cause at this time a diagnosis for his right groin pain. There is no obvious infection. And there is no signs of any hernia.
[2019-03-11] MEDS: HYDROcodone Bitartrate/Apap 5/325 Tablet PO (15:54)
[2019-03-11 15:55] VITALS: BP 118/90; PULSE 87; RESP 16; O2SAT 92
--- NOTE | 2019-03-11 16:01 | ED.RN ---
NURSE TO NURSE REPORT GIVEN TO [facility].
== END 2019-03-11 16:30 | disposition home or self-care (01) ==
PROVIDERS: Emergency Provider Emergency Medicine; Family Provider Family Medicine; PCP Family Medicine
DX: R10.31 Right lower quadrant pain (principal); R11.2 Nausea with vomiting, unspecified; E11.9 Type 2 diabetes mellitus without complications; I10 Essential (primary) hypertension; D64.9 Anemia, unspecified
CPT/HCPCS: 36592; 72170; 80048; 81001; 85025; 99285

== ENCOUNTER 2019-03-12 19:50 | Emergency (ER) | payer MEDICARE, MEDICAID, SELFPAY ==
[2019-03-11 11:26] VITALS: BMI 32.2
[2019-03-12 19:51] VITALS: BP 148/65; PULSE 6; RESP 16; TEMP 36.9; O2SAT 97; BMI 32.1
--- NOTE | 2019-03-12 20:26 | CT_ITS ---
STUDY: CT ABDOMEN AND PELVIS WITH CONTRAST REASON FOR EXAM: Male, 69 years old. Right lower quadrant pain with nausea and vomiting for 2 weeks. History of bilateral psoas muscle drains. Chronic kidney disease. RADIATION DOSAGE (If Supplied By Facility): CTDIvol = ( 13.31 ) mGy, DLP = ( 1332.84 ) mGycm TECHNIQUE: Transaxial images were obtained from the dome of the diaphragm to the symphysis pubis without oral contrast. IV 100mL Isovue-300 100ML was administered. Sagittal and coronal images were reconstructed. Individualized dose optimization techniques were used for this CT. COMPARISON: Prior abdomen and pelvic CT exam of March 01, 2019 FINDINGS: Continued areas of multifocal consolidation at the right lung base and posterior left lung base, more extensively at the right lung base. Minimal remaining pleural effusion.. Calcified granuloma. Coronary calcifications. Normal liver. Normal gallbladder and extrahepatic biliary system. There are multiple benign calcified granulomata of the spleen. There is diffuse atrophy of the pancreas. Normal bilateral adrenal glands. Mild atrophy of the right kidney without hydronephrosis or stones. Mild atrophy of the left kidney without hydronephrosis or stones. Normal visualized stomach. Normal small intestine. Minimal diverticulosis of the colon without evidence of acute diverticulitis. The appendix is visualized and appears normal. There is diffuse atherosclerotic calcification of the abdominal aorta, without a demonstrated aneurysm. Normal inferior vena cava. Normal retroperitoneum. Distended urinary bladder. Normal to shotty subcentimeter inguinal and distal external iliac lymph nodes. There is a percutaneous drain out of the left psoas muscle which enters over the posterior iliac crests. There is no focal fluid collection or general enlargement of the left so as muscle. There is a percutaneous drain of the left psoas muscle that enters just under the 12th rib with no focal fluid collection or substantial enlargement of the left psoas muscle. The osteolytic process of L1 and the adjacent L1-L2 disc space is stable and not substantially changed from the prior examination. CT/Abdomen/Pelvis W IV Cont ONLY IMPRESSION: Osteolytic destructive process of L1 appears stable from prior exam. Pigtail drain of the left psoas muscle which enters over the left posterior iliac crest with no visible fluid collection or enlargement of the psoas muscle. Pigtail drain of the left psoas muscle under the 12th rib with no focal fluid collection or substantial enlargement of the left psoas muscle. Continued multifocal bibasilar areas of consolidation right greater than left. Minimal remaining pleural effusion. Calcified granuloma the left lower lobe. Coronary calcifications. Substantially reduced anasarca from prior exam. Unremarkable liver, calcified granuloma of the spleen, unremarkable gallbladder and pancreatic atrophy. Mild bilateral renal atrophy without hydronephrosis or stones. Distended urinary bladder. No acute bowel related findings. Negative for evidence of obstruction, perforation or inflammatory changes. A normal appendix is identified. No specific abnormality of the right lower quadrant other than a distended urinary bladder. Minimal shotty to normal distal external iliac and inguinal lymph nodes. Electronically Signed: Hortencia Bundy MD at 21:53 EST , Service support ,
--- NOTE | 2019-03-12 20:28 | ED.DCSUM_ITS ---
History of Present Illness Chief Complaint: Abd Pain Informant: Patient, SNF - Abdominal Pain/Flank Pain Onset: Days - 4 (per pt -- 7 per SNF) Context: Gradual Onset Timing: Continuous Quality: Aching Location: RUQ, RLQ Current Severity: Mild Maximum Severity: Moderate Worsened by: Movement Relieved by: Remaining Still - Nausea/Vomiting/Emesis GI Symptom: Nausea, Vomiting Episodes: 3 - Diarrhea/Melena/Hematochezia GI Symptom: - - no BM recently; can't remember last one. Negative for: Diarrhea, Melena, Hematochezia Associated Symptoms: Negative for: Dysuria, Frequency, Hematuria, Urgency Narrative: No prior abdominal surgeries. Right-sided abdominal pain that has been getting worse. Patient states it radiates into his right low back. According to included paperwork from the [facility], it appears that nursing had felt a mass in his right groin when he sits up but goes away when he lies down, he had x-rays yesterday and an unremarkable exam here in the ER, and was sent back today in order to have a CT scan performed for further evaluation. Patient states he has not urinated since early this morning and he presents at around 9 PM. He denies having a history of any abdominal surgeries but apparently he had spinal osteomyelitis that was recently operated on and he has drains in his back. - Past Medical History (1) CAD in [place] artery Status: Chronic (2) Chronic back pain Status: Chronic (3) Chronic renal disease, stage III Status: Chronic (4) Diabetic peripheral neuropathy Status: Chronic (5) HTN (hypertension) Status: Chronic (6) Hyperlipidemia Status: Chronic (7) Obesity (BMI 30-39.9) Status: Chronic (8) Paroxysmal atrial fibrillation Status: Chronic (9) S/P PTCA (percutaneous transluminal coronary angioplasty) Status: Chronic (10) Type II diabetes mellitus Status: Chronic Comment: not adequately controlled, HGBA1C is 8 Past Medical History - Allergies and Home Meds Allergies/Adverse Reactions: Allergies mushroom Allergy (Verified 03/12/19 23:08) Unknown Primary Care Physician: Troy Parker MD [Primary Care Provider] - (1-2d) Surgical History: noncontributory Lives: Long Term Smoking Status: Former smoker - Family History Maternal Family History: Reports: Heart Disease Paternal Family History: Reports: Diabetes, Heart Disease Review of Systems General: Reports: Malaise. Denies: Chills, Fever, Sweats Eyes: Denies: Visual changes - bilaterally, Diplopia ENT: Denies: Rhinorrhea, Sore throat Cardiovascular: Denies: Chest pain, Palpitations Respiratory: Reports: Cough, Sputum - No blood. Denies: Dyspnea, Dyspnea on exertion Gastrointestinal: Reports: Abdominal pain, Nausea, Vomiting. Denies: Diarrhea, Melena, Hematochezia Genitourinary: Denies: Dysuria, Hematuria, Frequency Musculoskeletal: Reports: Back pain. Denies: Swelling, Extremity Pain Skin: Denies: Rash, Wounds Neurological: Denies: Headache, Weakness, Numbness Physical Exam Vital Signs/Narrative: Vital Signs Temp Pulse Resp BP Pulse Ox 03/12/19 19:51 98.5 F 6 L 16 148/65 H 97 Inital Vital Signs reviewed: Yes General: Well nourished, Well developed, No Acute Distress Head: Normocephalic, Atraumatic Eyes: Perrl, EOMI ENT: Moist mucous membranes, No rhinorrhea Neck: Supple, Nontender Cardiovascular: Regular rate, Regular rhythm, No murmurs Respiratory: No distress, CTA bilaterally, Chest nontender Abdomen: Soft, Normal bowel sounds, Tender - Throughout right side only. Negative for: Nondistended - Mildly distended right side, Guarding, Rebound tenderness, Pulsatile mass Back: - - Patient will not allow inspection/examination of his back because rolling him or sitting him up hurts his abdomen too much Extremities: Nontender, No edema. Negative for: Calf Tenderness Skin: Normal color, No rash, No Trauma Neurological: Alert, Oriented x3, Cranial nerves II-XII grossly intact, Normal Strength, Normal Sensation Psychological: Normal affect, Normal Mood Diagnostic/Tx/Re-eval Impressions Abdomen/Pelvis CT 03/12/19 20:26 IMPRESSION: Osteolytic destructive process of L1 appears stable from prior exam. Pigtail drain of the left psoas muscle which enters over the left posterior iliac crest with no visible fluid collection or enlargement of the psoas muscle. Pigtail drain of the left psoas muscle under the 12th rib with no focal fluid collection or substantial enlargement of the left psoas muscle. Continued multifocal bibasilar areas of consolidation right greater than left. Minimal remaining pleural effusion. Calcified granuloma the left lower lobe. Coronary calcifications. Substantially reduced anasarca from prior exam. Unremarkable liver, calcified granuloma of the spleen, unremarkable gallbladder and pancreatic atrophy. Mild bilateral renal atrophy without hydronephrosis or stones. Distended urinary bladder. No acute bowel related findings. Negative for evidence of obstruction, perforation or inflammatory changes. A normal appendix is identified. No specific abnormality of the right lower quadrant other than a distended urinary bladder. Minimal shotty to normal distal external iliac and inguinal lymph nodes. Electronically Signed: Hortencia Bundy MD at 21:53 EST , Service support , Chest X-Ray 03/12/19 20:35 IMPRESSION: Substantial improvement in the consolidation and pleural effusion on the right and a decreased pleural effusion on the left. A component of consolidation and volume loss persists on the right with an elevated diaphragm. Continued cardiomegaly. Central venous catheter ends at the atriocaval junction. Electronically Signed: Hortencia Bundy MD at 20:59 EST , Service support , 03/12/19 20:26 Abdomen/Pelvis W IV Cont ONLY [CT] Stat 03/12/19 20:35 Chest 1 View (Portable) [RAD] Stat Laboratory Results 03/12/19 03/12/19 03/12/19 20:37 20:37 22:40 WBC 9.6 RBC 2.79 L Hgb 8.1 L Hct 26.8 L MCV 96.1 H MCH 29.0 MCHC 30.2 L RDW Std Deviation 57.9 H RDW Coeff of [place] 16.6 H Plt Count 333 MPV 9.0 Immature Gran % (Auto) 1.300 H Neut % (Auto) 82.1 H Lymph % (Auto) 6.7 L [place] % (Auto) 8.7 Eos % (Auto) 0.8 Baso % (Auto) 0.4 Absolute Neuts (auto) 7.9 H Absolute Lymphs (auto) 0.65 L Nucleated RBC % 0 Sodium 139 Potassium 3.9 Chloride 100 Carbon Dioxide 35.0 H Anion Gap 4 L BUN 19 H Creatinine 1.30 Estim Creat Clear Calc 47.03 Est GFR (MDRD) Af Amer 70 Est GFR (MDRD) Non-Af 58 L BUN/Creatinine Ratio 14.6 Glucose 98 Calcium 8.3 L Total Bilirubin 0.20 AST 24 ALT < 6 L Alkaline Phosphatase 97 Total Protein 7.1 Albumin 1.4 L Globulin 5.7 H Albumin/Globulin Ratio 0.2 L Lipase 205 Urine Color Yellow Urine Clarity Clear Urine pH 7.0 Ur Specific [place] 1.010 Urine Protein 30 H Urine Glucose (UA) 50 H Urine Ketones Negative Urine Occult Blood Negative Urine Nitrite Negative Urine Bilirubin Negative Urine Urobilinogen Normal Ur Leukocyte Esterase Negative Urine RBC 0 SEEN Urine WBC 0 SEEN Ur Squamous Epith Cells 0-5 SEEN Urine Bacteria 0 SEEN Urine Mucus 0 SEEN - Medical Decision Making CT shows catheters in his back which are from recent spinal osteomyelitis héctor basim, there is osteolytic area at L1 that is stable, presumably related, and no acute pathology in the lower abdomen, except for a very distended urinary bladder. Patient felt he could not urinate, so we placed a Morillo catheter and over 1 L came out and the patient did have some improvement after that and some morphine. Sitting him up was extremely painful. The drain sites look benign in the back, and there is no fluid collection internally on the CAT scan where the end of the pigtails are. Chest x-ray showed improvement compared with the prior with regards to pleural effusions and consolidation, but on the CT, we see continued areas of multifocal consolidation at the right lung base and posterior left lung base, more extensively at the right lung base with minimal remaining pleural effusion. This is compared with a prior abdomen/pelvis CT on 03/01/2019. It appears that he is on Ancef IV but no other antibiotics. I discussed with Dr. Portillo who is covering for Dr. Parker, the physician who sent him for CT, he agrees with sending him back and adding Levaquin for the possible pulmonary infection. The patient is clinically and hemodynamically stable and I do not think he needs to be admitted. He agrees with that as well, so that is the plan for now. We will send him back with the urinary catheter. Of note, with nursing assistance we did set the patient up and evaluate the mass that was noted in his right groin by nursing. The patient indicated that he thought it was down in his inguinal area. Neither 1 of us felt any mass or anything unusual in his abdomen or inguinal area or scrotum. There is no hernia there. He is too weak to stand up to evaluate for hernia further, however with a negative CT and nothing on palpation with sitting, I feel we have evaluated him fully tonight. ED Disposition - Plan for ED Patient: Disposition: Home or Assisted Living Diagnosis: Right sided abdominal pain, Acute urinary retention, Healthcare-associated pneumonia Instructions: PNEUMONIA (Adult), URINARY RETENTION, Male Prescriptions: levoFLOXacin IV [Levaquin] 750 mg IV Q24 5 Days #5 bag Prescription Printed Referrals: Troy Parker MD [Primary Care Provider] - (1-2d)
--- NOTE | 2019-03-12 20:35 | RAD_ITS ---
STUDY: X-RAY CHEST REASON FOR EXAM: Male, 69 years old. Right lower quadrant abdominal pain TECHNIQUE: Single AP portable view of the chest. COMPARISON: Prior chest radiograph from March 01, 2019 FINDINGS: Central venous catheter terminates at the atriocaval junction. Substantial improvement in the consolidation and pleural effusion of the right lung. Mild diffuse air space densities of the left lung of an acute or chronic nature also with a reduced much smaller pleural effusion on the left. Continued cardiomegaly. Normal mediastinum and fco. Normal visualized pulmonary arteries. There is atherosclerotic calcification of the aortic arch with tortuosity. There is degenerative osteoarthritis of the bilateral shoulders. There is no demonstrated abnormality of the visualized soft tissue structures of the upper abdomen. RAD/Chest 1 View (Portable) IMPRESSION: Substantial improvement in the consolidation and pleural effusion on the right and a decreased pleural effusion on the left. A component of consolidation and volume loss persists on the right with an elevated diaphragm. Continued cardiomegaly. Central venous catheter ends at the atriocaval junction. Electronically Signed: Hortencia Bundy MD at 20:59 EST , Service support ,
[2019-03-12 20:45] LABS: Absolute Lymphocyte Count 0.65 X10^3/uL (0.83-4.51); Absolute Neutrophil Count 7.9 X10^3/uL (2.0-7.7); Basophil# 0.04 X10^3/uL; Basophil% 0.4 % (0-1); Eosinophil# 0.08 X10^3/uL; Eosinophils% 0.8 % (0-5); Hematocrit 26.8 % (40-54); Hemoglobin 8.1 g/dL (13.0-16.5); Lymphocyte # 0.65 X10^3/ul (4.0); Lymphocyte % 6.7 % (19-41); Mean Corp Hgb Conc 30.2 g/dL (32-36); Mean Corpuscular Volume 96.1 fL (80-94); Monocyte# 0.84 X10^3/uL; Monocyte% 8.7 % (0-10); NRBC Flagged by Analyzer 0 % (0-5); Neutrophil # 7.89 X10^3/uL (2.7-7.7); Neutrophil % 82.1 % (47-70); Platelet Count 333 K/mm3 (150-450); RBC Distribution Width CV 16.6 % (11.6-14.6); RBC Distribution Width SD 57.9 fl (35.1-43.9); Red Blood Count 2.79 M/mm3 (4.6-6.2); White Blood Count 9.6 K/mm3 (4.4-11.0)
[2019-03-12] MEDS: Ondansetron 4 MG/2 ML Vial IV (20:48)
[2019-03-12] MEDS: 0.9% Normal Saline 1,000 ML 1000 ML IV (20:48)
[2019-03-12] MEDS: Morphine 4 MG/ML Syringe IV (20:50)
[2019-03-12 20:51] VITALS: BP 157/70; PULSE 85; RESP 18; O2SAT 98
[2019-03-12 21:02] LABS: ALB/GLOB Ratio 0.2 RATIO (0.9-2.4); AST(SGOT) 24 U/L (15-37); Alanine Aminotransfer ALT/SGPT < 6 U/L (16-61); Albumin, Serum 1.4 g/dL (3.2-5.0); Alkaline Phosphatase 97 U/L (45-117); Anion Gap 4 (5-15); BUN 19 mg/dL (7-18); BUN/Creat Ratio 14.6 RATIO (10-20); Calcium,Total 8.3 mg/dL (8.5-10.1); Chloride 100 mmol/L (98-107); EST Glomerular Filtration Rate 58 mL/min (>60); Est Glom Filt Rate - Afr Amer 70 mL/min (>60); Estimated Creatinine Clearance 47.03 ml/min; Globulin 5.7 g/dL (2.2-4.2); Glucose 98 mg/dL (74-106); Lipase 205 U/L (73-393); Potassium 3.9 mmol/L (3.5-5.1); Protein, Total 7.1 g/dL (6.4-8.2); Sodium Level 139 mmol/L (136-145)
[2019-03-12 22:41] VITALS: BP 143/79; PULSE 91; RESP 18; O2SAT 96
[2019-03-12 22:43] VITALS: BP 143/79; RESP 20; O2SAT 97
[2019-03-12 22:47] LABS: Bacteria 0 SEEN /hpf (None Seen); Mucous, Urine 0 SEEN /hpf (<or=2+); Red Blood Cells-Urine 0 SEEN /hpf (0-5); White Blood Cells 0 SEEN /hpf (0-5)
[2019-03-12 23:00] LABS: Color, Urine Yellow (Yellow); Glucose, Dipstick 50 mg/dl (Normal); Ketone-Dipstick Negative (Negative); Leukocyte Esterase-Dipstick Negative /ul (Negative); Nitrite-Dipstick Negative (Negative); Occult Blood-Urine Negative /ul (Negative); Protein-Dipstick 30 mg/dl (Negative); Urine Bilirubin Dipstick Negative (Negative); Urine Clarity Clear (Clear); Urine Urobilinogen Normal (Normal)
[2019-03-12 23:08] LABS: Squamous Epithelial Cells - UA 0-5 SEEN /hpf (0-5)
[2019-03-12 23:50] VITALS: BP 151/60; PULSE 88; RESP 18; O2SAT 98
== END 2019-03-13 00:26 | disposition skilled nursing facility (03) ==
PROVIDERS: Emergency Provider Emergency Medicine; Family Provider Family Medicine; PCP Family Medicine
DX: R10.9 Unspecified abdominal pain (principal); J18.9 Pneumonia, unspecified organism; R33.9 Retention of urine, unspecified; J90 Pleural effusion, not elsewhere classified; Z87.891 Personal history of nicotine dependence; E11.22 Type 2 diabetes mellitus with diabetic chronic kidney disease; E11.42 Type 2 diabetes mellitus with diabetic polyneuropathy; E66.9 Obesity, unspecified; E78.5 Hyperlipidemia, unspecified; G89.29 Other chronic pain; I12.9 Hypertensive chronic kidney disease with stage 1 through stage 4 chronic kidney disease, or unspecified chronic kidney disease; I25.10 Atherosclerotic heart disease of native coronary artery without angina pectoris; N18.3 Chronic kidney disease, stage 3 (moderate); I48.0 Paroxysmal atrial fibrillation; Z82.49 Family history of ischemic heart disease and other diseases of the circulatory system; M54.9 Dorsalgia, unspecified
CPT/HCPCS: 51702; 71045; 74177; 80053; 81001; 83690; 85025; 96361; 96374; 96375; 99285; Q9967; A4216; J2405

== ENCOUNTER 2019-03-24 13:41 | Emergency (ER) | payer MEDICARE, MEDICAID, SELFPAY ==
[2019-03-24 13:43] VITALS: BP 162/80; PULSE 82; RESP 20; TEMP 37.1; O2SAT 95; BMI 29.9
[2019-03-24 13:48] VITALS: BP 162/80; PULSE 85; RESP 16; TEMP 37.1; O2SAT 95
--- NOTE | 2019-03-24 14:33 | ED.VIS.GEN ---
History of Present Illness Chief Complaint: Back Informant: Patient Narrative: Patient sent to see from the [facility] for evaluation in the ED. Patient reports lower lumbar surgery for spinal stenosis by Dr. Lopez at [facility] at the end of January. There was postop complications with acute kidney injury he has bilateral nephrostomy tubes along with a Morillo catheter. He is currently on IV antibiotics ending April 20 for on paperwork noting MRSA coverage. He denies fever. States his back pain has been consistent since surgery however controlled with his Percocet. He denies radicular symptoms. He states he is getting therapy and is trying to ambulate. He states he is initially at rehab up in [place] and was transferred down to the [facility] on the eighth, 11 days ago. Reports to me that there is difficulty with facility trying to provide transport for his follow-up in the office today and was sent here to try to coordinate things. Denies any new symptoms. Prior similar symptoms: No Past Medical History - Allergies and Home Meds Allergies/Adverse Reactions: Allergies mushroom Allergy (Verified 03/12/19 23:08) Unknown Primary Care Physician: Troy Parker MD [Primary Care Provider] - Surgical History: noncontributory Smoking Status: Former smoker - Family History Maternal Family History: Reports: Heart Disease Paternal Family History: Reports: Diabetes, Heart Disease Review of Systems General: Denies: Chills, Fever, Sweats Eyes: Denies: Visual changes - bilaterally, Diplopia ENT: Denies: Rhinorrhea, Sore throat Cardiovascular: Denies: Chest pain, Palpitations Respiratory: Denies: Dyspnea, Cough, Dyspnea on exertion Gastrointestinal: Denies: Abdominal pain, Nausea, Vomiting, Diarrhea, Melena, Hematochezia Genitourinary: Denies: Dysuria, Hematuria, Frequency Musculoskeletal: Reports: Back pain. Denies: Extremity Pain Skin: Denies: Rash, Wounds Neurological: Denies: Headache, Weakness, Numbness Physical Exam Vital Signs/Narrative: Vital Signs Temp Pulse Resp BP Pulse Ox 03/24/19 13:48 98.8 F 85 16 162/80 H 95 03/24/19 13:43 98.8 F 82 20 H 162/80 H 95 Inital Vital Signs reviewed: Yes General: Well nourished, Well developed, No Acute Distress Head: Normocephalic, Atraumatic Eyes: Perrl, EOMI ENT: Moist mucous membranes, No rhinorrhea Neck: Supple, Nontender Cardiovascular: Regular rate, Regular rhythm, No murmurs Respiratory: No distress, CTA bilaterally, Chest nontender Abdomen: Soft, Nontender, Nondistended, Normal bowel sounds : - - Morillo catheter with yellow urine. Back: Nontender, - - Bilateral nephrostomy tubes, dressing to the lower mid lumbar spine with a patch. Empty nephrostomy bags. Extremities: Nontender, No edema Skin: Normal color, No rash Neurological: Alert, Oriented x3, Cranial nerves II-XII grossly intact Psychological: Normal affect, Normal Mood Diagnostic/Tx/Re-eval - Medical Decision Making Patient nontoxic, vital signs stable, reports symptoms are controlled with medications. I had nursing call the facility his last Percocet was 4 AM this morning nearly 12 hours ago. They did report that they had no way of transporting the patient to [place], discussed with nursing and relayed that this is not an ER issue. They need to coordinate that as an outpatient. Patient was given 10 mg of oxycodone for which the equivalent dose of what he takes. Is given Zofran for his reported nausea. He will be discharged back to the facility for outpatient management. ED Disposition - Plan for ED Patient: Disposition: Home or Assisted Living Diagnosis: Well adult exam Referrals: Troy Parker MD [Primary Care Provider] - 1 Day Additional Instructions: Outpatient transport for follow-up with surgeon needs to be facilitated by your facility.
--- NOTE | 2019-03-24 15:29 | NURSING ---
SPOKE TO JONATHON HINES AT THE [facility], EXPLAINED THAT THE PATIENT NEEDS TO FOLLOW UP WITH SURGEON FOR POST OP VISIT. PT IS CLEARED FOR TRANSPORT BACK TO FACILITY.
[2019-03-24] MEDS: oxyCODONE 5 MG Tablet 10 MG PO (15:46)
[2019-03-24] MEDS: Ondansetron ODT 4 MG Tablet 8 MG PO (15:46)
[2019-03-24 15:49] VITALS: BP 160/74; PULSE 84; RESP 19; O2SAT 95
== END 2019-03-24 16:07 | disposition skilled nursing facility (03) ==
PROVIDERS: Emergency Provider Emergency Medicine; Family Provider Family Medicine; PCP Family Medicine
DX: M54.9 Dorsalgia, unspecified (principal); Z93.6 Other artificial openings of urinary tract status; Z82.49 Family history of ischemic heart disease and other diseases of the circulatory system; Z87.891 Personal history of nicotine dependence
CPT/HCPCS: 99285